=== PATIENT | male | born 1970 | race Caucasian/White ===

== ENCOUNTER 2023-08-31 06:51 | Day surgery (SDC) | payer OTHER, SELFPAY ==
--- NOTE | 2023-08-30 08:30 | COLBX_PTH ---
PATHOLOGY RESULTS PATIENT: ANGELA FRIEDMAN LOC: EN U#:[id number] AGE/SX: 52/M ROOM: RE08/31/[address]: Dr. Israel Proctor MD : 1970 BED: DIS: 08/31/2023 SPEC #: [id number] RECD: 08/31/23 13:09 STATUS: CHANTALE CHANNING #: [id number] PIPPA: 08/30/23 08:[address]: Israel Proctor DEPT: SURGICAL PATHOLOGY RECD BY: Diane Ragsdale ENTERED: 08/31/23 13:09 SP TYPE: COLON BX Tissues: Gastric mucous membrane Rectum, NOS Procedures: Surgery Specimen Level IV HEADER OPERATION: Colonoscopy with biopsy, EGD with dilation and biopsy PRE-OP DIAGNOSIS: Positive Cologuard test, GERD TISSUE SUBMITTED: A - Antrum biopsy for H. pylori and path, B - Rectal polyp biopsy MICROSCOPIC DIAGNOSIS A. Gastric antrum, biopsy: Chronic gastritis. See comment. B. Rectal polyp, biopsy: Hyperplastic polyp. AM:shereen 09/03/2023 COMMENT A. The results of immunohistochemistry for Helicobacter pylori will be reported separately ([id number]). MICROSCOPIC DESCRIPTION Slides are reviewed. GROSS DESCRIPTION A - Received in fixative is one container labeled with the patient's name and designated antrum biopsy. The specimen consists of two irregular fragments of light shepard soft tissue that in aggregate measure 0.6 x 0.5 x 0.1 cm. The specimen is totally submitted in one cassette. B - Received in fixative is one container labeled with the patient's name and designated rectal polyp biopsy. The specimen consists of one irregular fragment of light shepard soft tissue that measures 0.3 x 0.3 x 0.1 cm. The specimen is totally submitted in one cassette. / SJ:shereen 08/31/2023 TC:3 CPT: 32989 x2
--- OUTSIDE RECORDS SUMMARY | 2023-08-31 06:54 | XMS RPT_ITS | CCD ---
Author Name Unknown Address [address] [place] [address] [address] [place] [id number] Organization [facility] Care Team Providers Care Bioassayist Name Role Phone Maverick Martin Attending Unavailable Problems Problem Classification Problem Date Documented Da te Episodic/Chronic Alcohol-related disorders (1 source) Alcohol dependence with withdrawal, unspecified; Translations: [Alcohol dependence with withdrawal, unspecified] Onset: 02-28-2023 Chronic Coagulation and hemorrhagic disorders (1 source) Thrombocytopenia, unspecified; Translations: [Thrombocytopenia, unspecified] Onset: 02-28-2023 Chronic E Codes: Unspecified (1 source) Presence of alcohol in blood, level not specified; Translations: [Presence of alcohol in blood, level not specified] Onset: 02-28-2023 Episodic Malaise and fatigue (1 source) Weakness; Translations: [Weakness] Onset: 02-28-2023 Episodic Other nutritional; endocrine; and metabolic disorders (1 source) Hypocalcemia; Translations: [Hypocalcemia] Onset: 02-28-2023 Chronic Other nutritional; endocrine; and metabolic disorders (1 source) Other symptoms and signs concerning food and fluid intake; Translations: [Other symptoms and signs concerning food and fluid intake] Onset: 02-28-2023 Episodic Residual codes; unclassified (1 source) Pain, unspecified; Translations: [Pain, unspecified] Onset: 02-28-2023 Episodic Unclassified (1 source) Contact with and (suspected) exposure to COVID-19; Translations: [Contact with and (suspected) exposure to COVID-19] Onset: 02-28-2023 Results Test Name Value Interpretation Reference Range Facil ity Encounters Encounter Date Encounter Type Care Provider Facility Start: 02-27-2023 End: 02-28-2023 Emergency department patient visit Maverick Martin Facil ity:[id number] Payers Date Payer Category Payer Unknown [id number] Unknown [id number] Summary Purpose Family History No Family History Records FoundNo Family History Records Found Advance Directives No Advanced Directives Records FoundNo Advanced Directives Records Found Additional Source Comments (unrecognized sect ion and content) No Status Records FoundNo Status Records Found INFORMATION SOURCE (unrecogn ized section and content) DATE CREATED AUTHOR AUTHOR'S ORGANMARTHA ATION 02/28/2023 [facility] FOR RECORDS PERTAINING TO PATIENTS WHO ARE OR HAVE BEEN ENROLLED IN A CHEMICAL DEPENDENCY/SUBSTANCEABUSE PROGRAM, SOME INFORMATION MAY BE OMITTED. This clinical summary was aggregated from multiple sources. Caution should be exercised in using it in the provision of clinical care. This summary normalizes information from multiple sources, and as a consequence, information in this document may materially change the coding, format and clinical context of patient data. In addition, data may be omitted in some cases. CLINICAL DECISIONS SHOULD BE BASED ON THE PRIMARY CLINICAL RECORDS. [facility]. provides no warranty or guarantee of the accuracy or completeness of information in this document.
[2023-08-31 07:22] VITALS: BP 95/64; PULSE 88; RESP 16; TEMP 36.7; O2SAT 99; BMI 20.9
[2023-08-31] MEDS: Lactated Ringers 1,000 ML 15 ML IV (07:31)
--- NOTE | 2023-08-31 08:07 | HP.PCM_ITS ---
History and Physical Date of Admission: 08/31/[address] Israel Proctor MD on 08/22/23 at 1047 Intake Chief Complaint: c-scope Allergies No Known Allergies Allergy (Unverified 08/16/23 10:08) Medications acetaminophen 325 mg capsule (Tylenol) 325 mg PO Q6H PRN 04/09/18 [History Confirmed 08/16/23] acetaminophen 325 mg tablet 325 mg PO Q4-6H 08/16/23 [History Confirmed 08/16/23] diclofenac sodium 1 % topical gel topical 08/16/23 [History Confirmed 08/16/23] docusate sodium 100 mg capsule mg PO PRN 08/16/23 [History Confirmed 08/16/23] famotidine 20 mg tablet 20 mg PO DAILY 08/16/23 [History Confirmed 08/16/23] folic acid 1 mg tablet 1 mg PO DAILY 08/16/23 [History Confirmed 08/16/23] food supplemt, lactose-reduced (Ensure MAX Protein oral liquid) ml PO 08/16/23 [History Confirmed 08/16/23] gabapentin 300 mg capsule 300 mg PO TID 08/16/23 [History Confirmed 08/16/23] hydroxyzine pamoate 50 mg capsule 50 mg PO BID 08/16/23 [History Confirmed 08/16/23] mirtazapine 30 mg tablet 30 mg PO QHS 08/16/23 [History Confirmed 08/16/23] naltrexone 50 mg tablet 100 mg PO DAILY 08/16/23 [History Confirmed 08/16/23] thiamine HCl (vitamin B1) 100 mg tablet 100 mg PO DAILY 08/16/23 [History Confirmed 08/16/23] Assessment and Plan Assessment and Plan (1) Positive colorectal cancer screening using Cologuard test: Status: Acute Plan: Patient has positive Cologuard and requires colonoscopy. I explained endoscopy in detail to the patient. I explained the risks including but not limited to stroke or heart attack with anesthesia, perforation of the GI tract, bleeding, infection. I explained that any of these could necessitate further emergency surgery. The patient understands and all questions were answered sufficiently. The patient wishes to proceed with procedure. (2) GERD (gastroesophageal reflux disease): Status: Acute Qualifiers: Esophagitis presence: esophagitis presence not specified Qualified Code(s): K21.9 - Gastro-esophageal reflux disease without esophagitis Plan: Patient also has longstanding GERD and requires EGD for evaluation. Israel Proctor MD Pager: [facility] [address] [place] [address] [address] [place] [address] Office: Orders: Orders Colonoscopy 08/31/23 08/22/23 1047 <Electronically signed by Israel Proctor MD> Date Israel Proctor MD cc: ~* Signed Intake Vital Signs 08/16/2409:07 Height 6 ft 3 in Weight: 173 lb BMI 21.6 BP 149/91 H Blood Pressure Location Rt brachial Position Sitting Respiration 16 Intake Visit Reasons: COLONOSCOPY Chief Complaint: c-scope Commissioner Conservation Of Resources Required: No Is patient in pain?: No Allergies No Known Allergies Allergy (Unverified 08/16/23 10:08) Medications acetaminophen 325 mg capsule (Tylenol) 325 mg PO Q6H PRN 04/09/18 [History Confirmed 08/16/23] acetaminophen 325 mg tablet 325 mg PO Q4-6H 08/16/23 [History Confirmed 08/16/23] diclofenac sodium 1 % topical gel topical 08/16/23 [History Confirmed 08/16/23] docusate sodium 100 mg capsule mg PO PRN 08/16/23 [History Confirmed 08/16/23] famotidine 20 mg tablet 20 mg PO DAILY 08/16/23 [History Confirmed 08/16/23] folic acid 1 mg tablet 1 mg PO DAILY 08/16/23 [History Confirmed 08/16/23] food supplemt, lactose-reduced (Ensure MAX Protein oral liquid) ml PO 08/16/23 [History Confirmed 08/16/23] gabapentin 300 mg capsule 300 mg PO TID 08/16/23 [History Confirmed 08/16/23] hydroxyzine pamoate 50 mg capsule 50 mg PO BID 08/16/23 [History Confirmed 08/16/23] mirtazapine 30 mg tablet 30 mg PO QHS 08/16/23 [History Confirmed 08/16/23] naltrexone 50 mg tablet 100 mg PO DAILY 08/16/23 [History Confirmed 08/16/23] thiamine HCl (vitamin B1) 100 mg tablet 100 mg PO DAILY 08/16/23 [History Confirmed 08/16/23] [facility] Medical History Alcohol abuse Arthritis Depression Hemorrhoids HTN (hypertension) Neuropathic pain Positive colorectal cancer screening using Cologuard test Thrombocytopenia Tobacco use Surgical History (Updated 08/16/23 @ 10:07 by Jane Briones) History of vocal cord polypectomy Social History (Updated 08/16/23 @ 10:07 by Jane Briones) Smoking Status: Current every day smoker alcohol intake: current alcohol intake frequency: 0-2 drinks per day Alcohol type: beer details: recovering alcoholic HPI HPI HPI: Patient is a 52-year-old male here for positive Cologuard. He denies abdominal pain or blood in the stool. He has no family history of colon cancer. ROS General General: No weight change, appetite, fatigue, colon cancer, breast cancer or weakness HEENT HEENT: No difficulty swallowing, eye injury, eye surgery, swollen glands or hoarseness Endo Endocrine: No thyroid disease, diabetes mellitus, thyroid cancer, Hair loss, heat intolerance or cold intolerance Skin Skin: No rash or changing moles Breast Breast: No left breast lump, right breast lump, nipple discharge, breast pain, abnormal mammogram, abnormal US or breast enlargement Musc Musculoskeletal: Yes arthritis; No back problems, rheumatoid arthritis, gout or joint pain Cardio Cardiovascular: No murmur, pacemaker, heart disease, atrial fibrillation, high blood pressure, heart attack, heart stent, palpitations, shortness of breat with exertion or chest pain Psych Psychiatric: Yes depression and anxiety; No hearing voices Resp Respiratory: No shortness of breath, No sleep apnea, No cough, No COPD, No asthma, No emphysema and No wheezing Gastro Gastrointestinal: No abdominal pain, No nausea or vomiting, No diarrhea, No constipation, No blood in stool, No acid reflux, Yes hemorrhoids, No ulcers, No gallbladder problem and No black,tarry stools Mauricio Hematologic: No blood thinners, No blood disorders, No bleeding, No anemia and No blood clots Neuro Neurologic: No system reviewed and no additional complaints, except as documented, No as per HPI, No abnormal gait, No abnormal hearing, No abnormal movements, No abnormal speech, No behavioral changes, No burning sensations, No confusion, No convulsions, No disequilibrium, No dizziness, No localized weakness, No frequent falls, No headache(s), No lack of coordination, No loss of vision, No memory loss, No numbness, No other visual disturbances, No radicular pain, No restless legs, No sensory deficit, No syncope, No tingling, No tremor(s), No weakness and No other Exam Const General: cooperative Orientation: alert and oriented x3 HENMT Head: normal to inspection Neck Neck: normal visual inspection and full ROM Chest Chest palpation & inspection: normal inspection of the chest Resp Effort & Inspection: normal respiratory effort Auscultation: clear to auscultation bilaterally Cardio Rate: regular rate Rhythm: regular rhythm GI Inspection: non-distended Palpation: soft and nontender Skin General: no rashes or lesions noted Neuro General: patient alert and patient oriented x3 Extrem General: full ROM Psych Appearance: grossly normal Mental Status: mental status grossly normal Assessment and Plan Assessment and Plan (1) Positive colorectal cancer screening using Cologuard test: Status: Acute Orders: Orders Colonoscopy Today Plan Patient had positive Cologuard and requires colonoscopy. I explained endoscopy in detail to the patient. I explained the risks including but not limited to stroke or heart attack with anesthesia, perforation of the GI tract, bleeding, infection. I explained that any of these could necessitate further emergency surgery. The patient understands and all questions were answered sufficiently. The patient wishes to proceed with procedure. Israel Proctor MD Pager: [facility] [address] [place] [address], [address] [place] [address] Office: Coding Level of Care Code Off vis,new,level 3 Diagnoses Positive colorectal cancer screening using Cologuard test R19.5 I have examined the patient and the H&P has been reviewed. There are no clinical changes since date of exam.
--- NOTE | 2023-08-31 08:30 | IMM_PTH ---
PATHOLOGY RESULTS PATIENT: NAGELA FRIEDMAN LOC: EN U#:[id number] AGE/SX: 52/M ROOM: RE08/31/[address]: Dr. Israel Proctor MD : 1970 BED: DIS: 08/31/2023 SPEC #: [id number] RECD: 08/31/23 14:54 STATUS: CHANTALE CHANNING #: [id number] PIPPA: 08/31/23 08:[address]: Israel Proctor DEPT: IMMUNOHISTOCHEMISTRY RECD BY: June Chapin ENTERED: 08/31/23 14:54 SP TYPE: IMMUNO Tissues: Stomach, NOS Procedures: H Pylori (initial) PHYSICIAN & INSTITUTION [place] [id number] SPECIMEN INFORMATION: Tissue Source: A - Antrum Clinical Info: Positive Cologuard test, GERD Specimen Number: [id number] CPT code: 82630 METHODOLOGY: Deparaffinized sections of prefer/formalin-fixed tissue or PAP/DQ stained slides are incubated with monoclonal/polyclonal antibodies/oligonucleotide probes. Localization is made via biotin free immunoperoxidase method. Appropriate controls are performed and reacted as expected. Results on target cell population are indicated in the following table: RESULTS: ANTIBODY / CLONE RESULT Block A H Pylori (polyclonal) negative These tests were developed and their performance characteristics determined by [facility]. They may not have been cleared or approved by the U.S. Food and Drug Administration. The FDA has determined that such clearance or approval is not necessary. The above immunohistochemical/dualISH markers are ordered and reviewed by the Pathologist. INTERPRETATION: A. Antrum, biopsy: Negative for Helicobacter pylori organisms. AM:shereen 09/03/2023
[2023-08-31 08:54] VITALS: BP 83/52; BP 95/64; PULSE 74; RESP 18; TEMP 36.2; O2SAT 94
[2023-08-31 08:55] VITALS: BP 71/48; BP 95/64; PULSE 74; RESP 18; O2SAT 93
--- NOTE | 2023-08-31 08:57 | OP.COLON_ITS ---
Patient Name: García Randle Procedure Date: 08/31/2023 8:33 AM Date of : 1970 Age: 52 Procedure: Colonoscopy Indications: Positive Cologuard test Providers: Israel Proctor MD Referring MD: Lady Chamberlain Medicines: Monitored Anesthesia Care Patient Profile: Last Colonoscopy: none. The patient's first colonoscopy is today. Complications: No immediate complications. Procedure: Pre-Anesthesia Assessment: - Prior to the procedure, a History and Physical was performed, and patient medications and allergies were reviewed. The patient's tolerance of previous anesthesia was also reviewed. The risks and benefits of the procedure and the sedation options and risks were discussed with the patient. All questions were answered, and informed consent was obtained. Prior Anticoagulants: The patient has taken no anticoagulant or antiplatelet agents. After reviewing the risks and benefits, the patient was deemed in satisfactory condition to undergo the procedure. After I obtained informed consent, the scope was passed under direct vision. Throughout the procedure, the patient's blood pressure, pulse, and oxygen saturations were monitored continuously. The Colonoscope was introduced through the anus and advanced to the cecum, identified by appendiceal orifice and ileocecal valve. The colonoscopy was performed without difficulty. The patient tolerated the procedure well. The quality of the bowel preparation was good. The ileocecal valve, appendiceal orifice, and rectum were photographed. Scope In: 8:34:59 AM Scope Withdrawal Time 0 hours 4 minutes 27 seconds Scope Out: 8:47:00 AM Total Procedure Duration Time 0 hours 12 minutes 1 second Findings: A small polyp was found in the rectum. The polyp was hyperplastic. The polyp was removed with a cold biopsy forceps. Resection and retrieval were complete. The entire examined colon appeared normal on direct and retroflexion views. Impression: - One small polyp in the rectum, removed with a cold biopsy forceps. Resected and retrieved. - The entire examined colon is normal on direct and retroflexion views. Recommendation: - Discharge patient to home. - Resume previous diet. - Continue present medications. - Await pathology results. - Repeat colonoscopy date to be determined after pending pathology results are reviewed for surveillance based on pathology results. Procedure Code(s): --- Professional --- 45035, Colonoscopy, flexible; with biopsy, single or multiple Diagnosis Code(s): --- Professional --- D12.8, Benign neoplasm of rectum R19.5, Other fecal abnormalities CPT copyright 2021 [employer]. All rights reserved. The codes documented in this report are preliminary and upon television maintenance man review may be revised to meet current compliance requirements. Isreal Proctor MD 08/31/2023 8:57:31 AM This report has been signed electronically. Number of Addenda: 0 Note Initiated On: 08/31/2023 8:33 AM
--- NOTE | 2023-08-31 08:58 | OP.CCLET_ITS ---
08/31/2023 Gelaciopernell Chamberlain Re : Colonoscopy procedure for García Chamberlain This procedure was performed on Thursday, August 31, 2023. My impressions and recommendations are as follows: Impressions : - One small polyp in the rectum, removed with a cold biopsy forceps. Resected and retrieved. - The entire examined colon is normal on direct and retroflexion views. Recommendations : - Discharge patient to home. - Resume previous diet. - Continue present medications. - Await pathology results. - Repeat colonoscopy date to be determined after pending pathology results are reviewed for surveillance based on pathology results. My findings are described in the full procedure note, which is enclosed. If I can be of further assistance, please feel free to contact me at Doctor phone number(s): , Work: . Sincerely, Israel Proctor MD 08/31/2023 8:57:31 AM This report has been signed electronically.
[2023-08-31 09:00] VITALS: BP 75/54; BP 95/64; PULSE 89; RESP 18; O2SAT 97
--- NOTE | 2023-08-31 09:00 | OP.EGD_ITS ---
Patient Name: García Randle Procedure Date: 08/31/2023 8:13 AM Date of : 1970 Age: 52 Procedure: Upper GI endoscopy Indications: Esophageal reflux Providers: Israel Proctor MD Referring MD: Lady Chamberlain Medicines: Propofol per Anesthesia Patient Profile: This is a 52 year old male. Refer to note in patient chart for documentation of history and physical. Complications: No immediate complications. Estimated blood loss: Minimal. Procedure: Pre-Anesthesia Assessment: - Prior to the procedure, a History and Physical was performed, and patient medications and allergies were reviewed. The patient's tolerance of previous anesthesia was also reviewed. The risks and benefits of the procedure and the sedation options and risks were discussed with the patient. All questions were answered, and informed consent was obtained. Prior Anticoagulants: The patient has taken no anticoagulant or antiplatelet agents. After reviewing the risks and benefits, the patient was deemed in satisfactory condition to undergo the procedure. After obtaining informed consent, the endoscope was passed under direct vision. Throughout the procedure, the patient's blood pressure, pulse, and oxygen saturations were monitored continuously. The Endoscope was introduced through the mouth, and advanced to the third part of duodenum. The upper GI endoscopy was accomplished without difficulty. The patient tolerated the procedure well. Scope In: 8:20:49 AM Scope Out: 8:32:09 AM Total Procedure Duration Time 0 hours 11 minutes 20 seconds Findings: A medium-sized hiatal hernia was present. One benign-appearing, intrinsic mild stenosis was found at the gastroesophageal junction. This stenosis measured less than one cm (in length). The stenosis was traversed. A TTS dilator was passed through the scope. Dilation with a 12-13.5-15 mm balloon and a 15-16.5-18 mm balloon dilator was performed to 18 mm. The dilation site was examined following endoscope reinsertion and showed mild mucosal disruption. Estimated blood loss was minimal. Mild inflammation with hemorrhage characterized by adherent blood was found in the gastric antrum. Biopsies were taken with a cold forceps for histology. The examined duodenum was normal. Impression: - Medium-sized hiatal hernia. - Benign-appearing esophageal stenosis. Dilated. - Gastritis with hemorrhage. Biopsied. - Normal examined duodenum. Recommendation: - Discharge patient to home. - Resume previous diet. - Continue present medications. - Use Prilosec (omeprazole) 20 mg PO daily for 2 months. Procedure Code(s): --- Professional --- 22349, Esophagogastroduodenoscopy, flexible, transoral; with transendoscopic balloon dilation of esophagus (less than 30 mm diameter) Diagnosis Code(s): --- Professional --- K44.9, Diaphragmatic hernia without obstruction or gangrene K22.2, Esophageal obstruction K29.71, Gastritis, unspecified, with bleeding K21.9, Gastro-esophageal reflux disease without esophagitis CPT copyright 2021 [employer]. All rights reserved. The codes documented in this report are preliminary and upon director health review may be revised to meet current compliance requirements. Israel Proctor MD 08/31/2023 9:00:08 AM This report has been signed electronically. Number of Addenda: 0 Note Initiated On: 08/31/2023 8:13 AM
--- NOTE | 2023-08-31 09:00 | OP.CCLET_ITS ---
08/31/2023 Bulmaro Re : Upper GI endoscopy procedure for García Randle Dear Bulmaro This procedure was performed on Thursday, August 31, 2023. My impressions and recommendations are as follows: Impressions : - Medium-sized hiatal hernia. - Benign-appearing esophageal stenosis. Dilated. - Gastritis with hemorrhage. Biopsied. - Normal examined duodenum. Recommendations : - Discharge patient to home. - Resume previous diet. - Continue present medications. - Use Prilosec (omeprazole) 20 mg PO daily for 2 months. My findings are described in the full procedure note, which is enclosed. If I can be of further assistance, please feel free to contact me at Doctor phone number(s): , Work: . Sincerely, Israel Proctor MD 08/31/2023 9:00:08 AM This report has been signed electronically.
[2023-08-31 09:06] VITALS: BP 92/71; BP 95/64; PULSE 94; RESP 18; TEMP 36.6; O2SAT 96
[2023-08-31 09:26] VITALS: BP 95/64
== END 2023-08-31 09:36 | disposition home or self-care (01) ==
LOC: EN 06:52 → AC 06:53
PROVIDERS: Visit Provider Surgery
PROC: 0DJD8ZZ Inspection of Lower Intestinal Tract, Via Natural or Artificial Opening Endoscopic (ICD-10-PCS; CPT 45378; principal; 2023-08-31 08:25)
DX: K29.51 Unspecified chronic gastritis with bleeding (principal); K44.9 Diaphragmatic hernia without obstruction or gangrene; K22.2 Esophageal obstruction; F17.200 Nicotine dependence, unspecified, uncomplicated; K21.9 Gastro-esophageal reflux disease without esophagitis; K62.1 Rectal polyp; I10 Essential (primary) hypertension; Z79.899 Other long term (current) drug therapy
CPT/HCPCS: 43249; 43239; 45380; 88305; 88342; J7120; J2405

== ENCOUNTER → 2024-05-06 | Outpatient (CLI) | payer OTHER, SELFPAY ==
--- NOTE | 2024-05-06 09:40 | ECHOTEE_ITS ---
Reason For Study: PFO Medication ADE probe 6VT-D (SN [id number]) passed without difficulty. No complications were noted. Performed a rapid injection of agitated mix of 9 cc saline and 1cc air to assess for atrial septal defect. Fentanyl 50 mcg given slow IVP. Versed 4 mg given slow IVP. Cetacaine Topical [place] given X3 orally. Left Ventricle Normal LV size. Left ventricular systolic function is normal. The left ventricular ejection fraction is 65 %. No regional wall motion abnormalities noted. Right Ventricle Normal RV size. Normal systolic function. Atria Patent foramen ovale. Normal left atrium. No thrombus is detected in the left atrial appendage. Normal right atrium. Mitral Valve Normal mitral valve. Tricuspid Valve Normal tricuspid valve. Aortic Valve Normal aortic valve. Trisinus/trileaflet aortic valve. Pulmonic Valve Normal pulmonic valve. Vessels Normal aortic root. Normal arch. The pulmonary artery is normal size. Pericardium No pericardial effusion. ECHO/Echo Transesophageal (ADE) Interpretation Summary Normal LV size. Left ventricular systolic function is normal. The left ventricular ejection fraction is 65 %. Patent foramen ovale. Ordering Physician: DEWAYNE GOLDBERG Referring Physician: DEWAYNE GOLDBERG Performed By: Shanelle You RDCS
== END | disposition home or self-care (01) ==
LOC: CVS 09:39
DX: Q21.12 Patent foramen ovale (principal)
CPT/HCPCS: 93312; 93320; 93325; J7040; A4216

== ENCOUNTER → 2024-05-22 | Outpatient (CLI) | payer OTHER, SELFPAY ==
--- NOTE | 2024-05-22 10:32 | ECHOD_ITS ---
Reason For Study: Patent Foramen Ovale Procedure This was a 2D Doppler, Color Flow transthoracic echocardiogram. Exam performed in department. Left Ventricle Normal LV size. Left ventricular systolic function is normal. The left ventricular ejection fraction is 60 %. No regional wall motion abnormalities noted. Right Ventricle Normal RV size. Normal systolic function. Atria Normal left atrium. Normal right atrium. Mitral Valve Normal mitral valve. Tricuspid Valve Normal tricuspid valve. Aortic Valve Trisinus/trileaflet aortic valve. Pulmonic Valve Normal pulmonic valve. Great Vessels Normal aortic root. The pulmonary artery is normal size. Normal inferior vena cava. Pericardium/Pleural No pericardial effusion. MMode/2D Measurements & Calculations LVIDd: 4.8 cm IVSd: 0.96 cm LVOT diam: 2.1 cm LVIDs: 3.5 cm LVPWd: 0.89 cm LVOT area: 3.5 cm2 RVDd: 3.7 cm FS: 28.1 % Ao root diam: 3.3 cm asc Aorta Diam: 3.2 cm LAV(MOD-sp4): 45.2 ml LA dimension: 3.7 cm LVAd ap4: 30.5 cm2 SV(MOD-sp4): 55.2 ml SV(sp4-el): 59.2 ml LVLd ap4: 7.6 cm EDV(MOD-sp4): 100.1 ml EDV(sp4-el): 104.4 ml LVAs ap4: 19.1 cm2 LVLs ap4: 6.9 cm ESV(MOD-sp4): 44.9 ml ESV(sp4-el): 45.2 ml EF(MOD-sp4): 55.2 % EF(sp4-el): 56.7 % TAPSE: 1.9 cm LA A4 area: 17.3 cm2 RA A4 area: 14.9 cm2 Time Measurements MV dec time: 0.19 sec Doppler Measurements & Calculations MV E max marco: 77.2 cm/sec Lat Peak E' Marco: 16.0 cm/sec Med Peak E' Marco: 12.3 cm/sec MV A max marco: 61.3 cm/sec E/E' lat: 4.8 E/E' med: 6.3 MV E/A: 1.3 MV V2 max: 81.9 cm/sec MV P1/2t max marco: 79.1 cm/sec Ao V2 max: 124.0 cm/sec MV max P.7 mmHg MV P1/2t: 68.5 msec Ao max P.2 mmHg MV V2 mean: 46.5 cm/sec MV dec slope: 338.1 cm/sec2 Ao V2 mean: 85.2 cm/sec MV mean P.0 mmHg Ao mean P.3 mmHg MV V2 VTI: 28.9 cm MVA(P1/2t): 3.2 cm2 Ao V2 VTI: 28.5 cm MVA(VTI): 2.6 cm2 AV (velocity ratio): 0.77 KVNG(I,D): 2.7 cm2 KVNG(V,D): 2.7 cm2 LV V1 max: 96.9 cm/sec SV(LVOT): 76.2 ml PA V2 max: 93.4 cm/sec LV V1 max P.8 mmHg PA max PG (full): 1.5 mmHg LV V1 mean P.9 mmHg LV V1 mean: 63.4 cm/sec LV V1 VTI: 21.9 cm ECHO/Echo Complete Interpretation Summary Normal LV size. Left ventricular systolic function is normal. The left ventricular ejection fraction is 60 %. Structurally normal valves. Ordering Physician: Joel Prasad Referring Physician: Joel Prasad Performed By: Keven Palma and Student
== END | disposition home or self-care (01) ==
LOC: CVS 10:31
PROVIDERS: Referring Provider Chiropractor; Visit Provider Chiropractor
DX: Q21.12 Patent foramen ovale (principal)
CPT/HCPCS: 93306

== ENCOUNTER 2024-08-22 13:40 | Outpatient (CLI) | payer OTHER, SELFPAY ==
--- NOTE | 2024-08-22 13:41 | VDLE_ITS ---
Reason For Study: PFO, CVA RIGHT LEFT GSV is normal. GSV is normal. CFV is compressible, spontaneous, phasic, CFV is compressible, spontaneous, phasic, competent and demonstrates normal competent, and demonstrates normal augmentation. augmentation. FV is compressible, spontaneous, phasic, FV is compressible, spontaneous, phasic, competent and demonstrates normal competent and demonstrates normal augmentation. augmentation. POP V is compressible, spontaneous, phasic, POP V is compressible, spontaneous, phasic, competent and demonstrates normal competent and demonstrates normal augmentation. augmentation. T/P Trunk is compressible. T/P Trunk is compressible. PTV is compressible. PTV is compressible. RT PerV is compressible. LT PerV is compressible. Procedure This is a venous duplex using B-mode, color flow and spectral Doppler. Exam performed in department. A preliminary report was called and/or faxed to [facility] [employer]. VL/Venous Duplex US - Luis A Extrem Interpretation Summary Deep veins of the bilateral lower extremities are patent and compressible segme ntally. There is no evidence of bilateral lower extremity deep vein thrombosis. The bilateral great saphenous veins appear patent and compressible segmentally. Ordering Physician: Aftab Cabrales Referring Physician: [facility] Performed By: Isabella Wright RVT
== END 2024-08-22 23:59 | disposition home or self-care (01) ==
LOC: CVS 13:41
PROVIDERS: Referring Provider Internal Medicine Cardiovascular Disease; Visit Provider Internal Medicine Cardiovascular Disease
DX: Q21.12 Patent foramen ovale (principal); I70.92 Chronic total occlusion of artery of the extremities; Z86.73 Personal history of transient ischemic attack (TIA), and cerebral infarction without residual deficits
CPT/HCPCS: 93970

== ENCOUNTER 2024-09-24 08:38 | Outpatient (CLI) | payer OTHER, SELFPAY ==
--- NOTE | 2024-09-24 08:40 | AAVD_ITS ---
Reason For Study Reason For Study: Family HX AAA Aorta Measurements Aorta Doppler Measurements Proximal aorta measures1.80 x 1.94cm. in cross-sectional Peak systolic flow velocities within the proximal aorta axis. measure 94.1 cm/sec. Proximal aorta measures1.95cm. in longitudinal axis. Peak systolic flow velocities within the mid aorta measure Mid aorta measures2.01 x 1.82cm. in cross-sectional axis. 90.4 cm/sec. Mid aorta measures1.87cm. in longitudinal axis. Peak systolic flow velocities within the distal aorta Distal aorta measures1.64 x 1.72cm. in cross-sectional axis.measure 88.6 cm/sec. Distal aorta measures1.69cm. in longitudinal axis. Heterogenous irregular plaque noted at prox and mid AO. Left Iliac Artery Left iliac artery measures 1.14 x 1.09 cm. in the cross-sectional axis. Left iliac artery measures 1.16 cm. in the longitudinal axis. Peak systolic velocity in the left iliac artery measures 108.6 cm/sec. Right Iliac Artery Right iliac artery measures 0.85 x 0.86 cm. in the cross-sectional axis. Right iliac artery measures 0.82 cm. in the longitudinal axis. Peak systolic velocity in the right iliac artery measures 83.2 cm/sec. Procedure Aorta IVC Iliac vasculature or bypass grafts [id number]. The exam was diagnostic. Exam performed in department. VL/Abd Aortic/IVC Duplex scan Interpretation Summary Aorta patent, normal caliber Bilateral iliac arteries patent, normal caliber Ordering Physician: Aftab Cabrales Referring Physician: STEPHEN Performed By: Frederick Guillory RVT
== END 2024-09-24 23:59 | disposition home or self-care (01) ==
LOC: CVS 08:39
PROVIDERS: Referring Provider Internal Medicine Cardiovascular Disease; Visit Provider Internal Medicine Cardiovascular Disease
DX: R09.89 Other specified symptoms and signs involving the circulatory and respiratory systems (principal); Q21.12 Patent foramen ovale; I10 Essential (primary) hypertension; F17.200 Nicotine dependence, unspecified, uncomplicated; Z86.73 Personal history of transient ischemic attack (TIA), and cerebral infarction without residual deficits; Z82.49 Family history of ischemic heart disease and other diseases of the circulatory system
CPT/HCPCS: 93978

== ENCOUNTER → 2025-03-06 | Outpatient (CLI) | payer OTHER, SELFPAY ==
--- NOTE | 2025-03-06 16:59 | CT_ITS ---
PROCEDURE: LOW DOSE CT LUNG SCREENING 03/06/2025 REASON FOR EXAM: NICOTINE DEPENDENCE, CIGARETTES, UNCOMPLICATED Current smoker. Patient has smoked 1 pack per day for 35 years. TECHNIQUE: LOW DOSE CT LUNG SCREENING Coronal and Sagittal reconstruction series were provided. One or more dose reduction techniques were used (e.g., Automated exposure control, adjustment of the mA and/or kV according to patient size, use of iterative reconstruction technique). REFERENCE LINK: [employer] Lung-RADS RADIATION DOSE SUMMARY: CTDlvol: 2.38 mGy DLP: 83.95 mGycm COMPARISON: None FINDINGS: PULMONARY NODULES: (Only nodules >3mm are reported) Nodules described below are on series 1 unless otherwise specified. Pulmonary Nodules: No suspicious nodules are seen. Hardware:None Lymph Nodes:No significant lymph nodes are present. Heart and Vasculature:The heart is nonenlargedAtherosclerotic calcifications of the thoracic aorta. Thoracic aorta and pulmonary arteries have normal contours; noncontrast technique limits evaluation. Coronary Artery Calcifications: Present Lungs and Airways: Mild emphysematous changes are present. Pleura:No pleural effusion. Upper Abdomen:Unremarkable Bones:Degenerative changes of the thoracic spine. CT/Low Dose CT Lung Screening IMPRESSION: Mild degree of emphysematous changes. Coronary artery calcification (CAC) is is present Lung-RADS Category: 2 BENIGN (BASED ON IMAGING FEATURES OR INDOLENT BEHAVIOR). RECOMMEND 12-MONTH SCREENING LDCT. Other Significant Findings: Reading Location: [place] [id number]
--- OUTSIDE RECORDS SUMMARY | 2025-03-06 17:10 | XMS RPT_ITS | CCD ---
Author Organization [facility] Care Team Providers Care Welding Specialist Name Role Phone Maverick Martin Attending Unavailable Dr. Israel Proctor Attending Provider [phone] Dr. Israel Proctor Other Provider [phone] BURCIAGAVISHNU VARMA Primary Care Provider VISHNU BURCIAGA Referring Provider FLAVIA NOGUEIRA Referring Unavailable FLAVIA NOGUEIRA Attending Unavailable BURCIAGA, BABBALJEET Primary Care Unavailable BURCIAGA, BABBALJEET Primary Care Unavailable PHUONG SILVA Referring Unavailab FLAVIA Quinteros Consulting Unavailable GIAN FONTANEZ Attending Unavail able EZE ANTHONY Admitting Unavailable BURCIAGA, BABBALJEET Primary Care Unavailable Generic Provider , No Assigned Pcp Primary Car e Provider [place] Referring Provider Unavailable Dr. Aftab Cabrales MD Attending Provider [place] [facility] Aftab Schulte MD Referring Provider Dr. Erick Logan MD Attending Provider URBANO CARPENTER Attending Unavailable GENERIC PROVIDER, NO ASSIGNED PCP Primary Care Unavailable URBANO CARPENTER Attending Unavailable GENERIC PROVIDER, NO ASSIGNED PCP Primary Care Unavailable TAMICA BUSCH Attending Unavailable URBANO CARPENTER Referring Unavailable GENERIC PROVIDER, NO ASSIGNED PCP Primary Care Unavailable TAMICA BUSCH Referring Unavailable GENERIC PROVIDER, NO ASSIGNED PCP Primary Care Unavailable TAMICA BUSCH Referring Unavailable GENERIC PROVIDER, NO ASSIGNED PCP Primary Care Unavailable Aftab Cabrales Attending Unavailable Erick Logan Attending Unavailable Aftab Cabrales [facility] Erick Logan [facility] Unavailable Samra, Aftab Referring Unavailable Samra, Aftab Attending [facility] Unavailable Samra, [place] Attending [facility] Ref[facility] Unavailable Samra, Aftab Attending Unavailable Samra, Aftab Referring [facility] Unavailable Samra, Aftab Attending Unavailable Samra, Aftab Referring Unavailable CAROLINA SINGH Referring Unavailable CAROLINA SINGH [facility]ending [facility] [place] [facility] [place] [facility] Unavailable CAROLINA SINGH Attending Unavailable CAROLINA SINGH Primary Care Unavailable CAROLINA SINGH Referring Unavailable Medications Current Medications Medication Drug Class(es) Dates Sig (Normalized) Sig (Original) acetaminophen 325 mg oral tablet (7 sources) Start: 07-26-2023 take 2 tablets by mouth every six hours as needed acetaminophen (Tylenol) 325 mg tablet Take 2 tablets (650 mg) by mouth every 6 hours if needed. 07/26/2023 Active Start: 04-09-2018 take 1 capsule by mo [facility] every six hours as needed for pain Acetaminophen (Tylenol) 325 mg capsule Active 325 mg PO EVERY 6 HOURS as needed for pain April 09, 2018 12:00am amLODIPine 5 mg oral tablet (6 sources) Dihydropyridine Calcium Channel Anish Start: 02-15-2024 take 1 tablet by mouth once daily amLODIPine (Norvasc) 5 mg tablet Take 1 tablet (5 mg) by mouth once daily. 02/15/2024 Active aspirin 81 mg delayed release oral tablet (6 sources) Platelet Aggregation Inhibitor, Nonsteroidal Anti-inflammatory Drug Start: 05-06-2024 Aspirin (Adult Low Dose Aspirin) 81 mg tablet,delayed release (DR/EC) Active 81 mg PO DAILY May 06, 2024 12:00am gabapentin 300 mg oral capsule (7 sources) Anti-epileptic Agent Start: 08-16-2023 take 1 capsule by mouth three times daily gabapentin (Neurontin) 300 mg capsule Take 1 capsule (300 mg) by mouth 3 times a day. 08/16/2023 Active hydrOXYzine pamoate 50 mg oral capsule (8 sources) Antihistamine Start: 08-16-2023 End: 01-16-2025 take 1 capsule by mouth three times daily as needed hydrOXYzine pamoate (Vistaril) 50 mg capsule Take 1 capsule (50 mg) by mouth 3 times a day as needed. 08/16/2023 01/16/2025 Active Start: 08-16-2023 End: 07-08-2024 take 1 capsule by mouth twice daily Hydroxyzine Pamoate 50 mg capsule Discontinued 50 mg PO TWICE A DAY August 16, 2023 1:00am July 08, 2024 11:20am melatonin 5 mg oral capsule (8 sources) Start: 07-08-2024 take 2 capsules by mouth at bedtime as needed Melatonin 5 mg capsule Active 10 mg PO AT BEDTIME as needed July 08, 2024 11:19am Start: 01-16-2024 take 2 tablets by mo uth once daily melatonin 3 mg tablet Take 2 tablets (6 mg) by mouth once daily. 01/16/2024 Active Start: 08-29-2023 End: 07-08-2024 take 1 capsule by mouth at bedtime Melatonin 5 mg capsule Discontinued 5 mg PO AT BEDTIME August 29, 2023 1:00am July 08, 2024 11:20am meloxicam 15 mg oral tablet (3 sources) Nonsteroidal Anti-inflammatory Drug Start: 08-29-2023 End: 07-08-2024 take 1 tablet by mouth once daily as needed Meloxicam 15 mg tablet Active 15 mg PO DAILY as needed July 08, 2024 11:19am mirtazapine 30 mg oral tablet (7 sources) Start: 06-22-2023 take 1 tablet by mouth once daily mirtazapine (Remeron) 30 mg tablet Take 1 tablet (30 mg) by mouth once daily. 06/22/2023 Active Multivitamin preparation (1 source) Start: 08-29-2023 take 1 tablet by mouth once daily Multivitamin Active 1 TABLET PO DAILY August 29, 2023 12:00am naltrexone hydrochloride 50 mg oral tablet (7 sources) Opioid Antagonist Start: 08-16-2023 End: 08-06-2024 take 1 tablet by mouth once daily as needed naltrexone (Depade) 50 mg tablet Take 1 tablet (50 mg) by mouth once daily. Prn 08/16/2023 Active Start: 08-16-2023 take 100 mg by mouth once johann y Naltrexone Active 100 MG PO DAILY August 16, 2023 12:00am Completed/Discontinued Medications Medication Drug Class(es) Dates Sig (Normalized) Sig (Original) atorvastatin (7 sources) HMG-CoA Reductase Inhibitor Start: 05-06-2024 End: 07-08-2024 atorvastatin Discontinued .Route May 06, 2024 12:00am July 08, 2024 11:20am Start: 02-15-2024 take 1 tablet by mary lou th once daily atorvastatin (Lipitor) 40 mg tablet Take 1 tablet (40 mg) by mouth once daily. 02/15/2024 Active diclofenac sodium 0.01 mg/mg topical gel (2 sources) Nonsteroidal Anti-inflammatory Drug Start: 08-16-2023 End: 07-08-2024 Diclofenac Sodium 1 % gel Discontinued 1 NMA TOPICAL NEEDED as needed for pain August 16, 2023 1:00am July 08, 2024 11:20am Start: 08-16-2023 Diclofenac Sod ium Active 1 EACH TOPICAL NEEDED August 16, 2023 12:00am docusate sodium 100 mg oral capsule (2 sources) Start: 08-16-2023 End: 05-06-2024 Docusate Sodium 100 mg capsule Discontinued 100 mg PO NEEDED as needed for STOOL SOFTENER August 16, 2023 1:00am May 06, 2024 11:51am famotidine 20 mg oral tablet (3 sources) Histamine-2 Receptor Antagonist Start: 07-08-2024 End: 08-06-2024 take 1 tablet by mouth twice daily Famotidine 20 mg tablet Discontinued 20 mg PO TWICE A DAY July 08, 2024 1:00am August 06, 2024 2:21pm Start: 08-16-2023 End: 08-31-2023 take 1 tablet by mouth once daily Famotidine 20 mg tablet Discontinued 20 mg PO DAILY August 16, 2023 1:00am August 31, 2023 10:00am finasteride 5 mg oral tablet (2 sources) 5-alpha Reductase Inhibitor Start: 08-29-2023 End: 05-06-2024 take 1 tablet by mouth at bedtime Finasteride 5 mg tablet Discontinued 5 mg PO AT BEDTIME August 29, 2023 1:00am May 06, 2024 11:51am folic acid 1 mg oral tablet (3 sources) Start: 07-08-2024 End: 08-06-2024 take 1 tablet by mouth once daily Folic Acid 1 mg tablet Discontinued 1 mg PO daily July 08, 2024 1:00am August 06, 2024 2:22pm Start: 08-16-2023 End: 05-06-2024 take 1 tablet by mouth once daily Folic Acid 1 mg tablet Discontinued 1 mg PO DAILY August 16, 2023 1:00am May 06, 2024 11:51am Food Supplemt, Lactose-Reduc ed (Ensure Max Protein) liquid (2 sources) Start: 08-16-2023 End: 05-06-2024 Food Supplemt, Lactose-Reduc ed (Ensure Max Protein) liquid Discontinued 30 mL PO NEEDED August 16, 2023 1:00am May 06, 2024 11:51am Start: 08-16-2023 Food Supplemt, Lactose-Reduced (Ensure Max Protein) liquid Active 30 ML PO NEEDED August 16, 2023 12:00am Multivitamin tablet (1 source) Start: 08-29-2023 End: 08-06-2024 Multivitamin tablet Discontinued 1 {tbl} PO DAILY August 29, 2023 1:00am August 06, 2024 2:22pm omeprazole 20 mg delayed release oral capsule (3 sources) Proton Pump Inhibitor Start: 07-08-2024 End: 08-06-2024 take 1 capsule by mouth once daily Omeprazole 20 mg capsule,delayed release(DR/EC) Discontinued 20 mg PO daily July 08, 2024 1:00am August 06, 2024 2:22pm Start: 08-31-2023 End: 05-06-2024 take 1 capsule by mouth once daily Omeprazole 20 mg capsule,delayed release(DR/EC) Discontinued 20 mg PO DAILY 60 60 August 31, 2023 1:00am May 06, 2024 11:53am tamsulosin hydrochloride 0.4 mg oral capsule (2 sources) alpha-Adrenergic Anish Start: 08-29-2023 End: 05-06-2024 take 2 capsules by mouth at bedtime Tamsulosin 0.4 mg capsule Discontinued 0.8 mg PO AT BEDTIME August 29, 2023 1:00am May 06, 2024 11:53am Start: 08-29-2023 take 0.8 mg by mouth at bedtim e Tamsulosin Active 0.8 MG PO AT BEDTIME August 29, 2023 12:00am thiamine 100 mg oral tablet (3 sources) Start: 07-08-2024 End: 08-06-2024 take 1 tablet by mouth once daily Thiamine Hcl (Vitamin B1) 100 mg tablet Discontinued 100 mg PO daily July 08, 2024 1:00am August 06, 2024 2:22pm Start: 08-16-2023 End: 05-06-2024 take 1 tablet by mouth once daily Thiamine Hcl (Vitamin B1) 100 mg tablet Discontinued 100 mg PO DAILY August 16, 2023 1:00am May 06, 2024 11:53am Problems Active Problems Problem Classification Problem Date Documented Da te Episodic/Chronic Acute cerebrovascular disease (10 sources) Cerebral infarction, unspecified; Translations: [Cerebrovascular accident] Onset: 4 Chronic Alcohol-related disorders (11 sources) Alcohol dependence with withdrawal, unspecified; Translations: [Alcohol abuse] Onset: 2 08-29-2023 Chronic Comment on above: IN RECOVERY Cardiac and circulatory congenital anomalies (10 sources) Patent foramen ovale; Translations: [PFO (patent foramen ovale) ([facility])] Onset: 5 10-08-2024 Chronic Coagulation and hemorrhagic disorders (3 sources) Thrombocytopenia, unspecified; Translations: [Thrombocytopenic disorder] Onset: 3 08-16-2023 Chronic E Codes: Unspecified (1 source) Presence of alcohol in blood, level not specified; Translations: [Presence of alcohol in blood, level not specified] Onset: 3 Episodic Esophageal disorders (3 sources) Gastroesophageal reflux disease; Translations: [Gastro-esophageal reflux disease without esophagitis] 08-22-2023 Chronic Essential hypertension (11 sources) Hypertensive disorder; Translations: [Essential (primary) hypertension] Onset: 5 08-16-2023 Chronic Hemorrhoids (2 sources) Hemorrhoids; Translations: [Unspecified hemorrhoids] 08-16-2023 Episodic Malaise and fatigue (3 sources) Weakness; Translations: [Weakness] Onset: 3 Episodic Mood disorders (6 sources) Depressive disorder; Translations: [Depression] Onset: 5 08-16-2023 Chronic Open wounds of extremities (4 sources) Laceration of left index finger; Translations: [Laceration without foreign body of left index finger without damage to nail, initial encounter] 04-09-2018 Episodic Osteoarthritis (2 sources) Arthritis; Translations: [Unspecified osteoarthritis, unspecified site] 08-16-2023 Chronic Other circulatory disease (1 source) History of cerebrovascular accident; Translations: [Personal history of transient ischemic attack (TIA), and cerebral infarction without residual deficits] 11-10-2024 Episodic Other circulatory disease (2 sources) Personal history of transient ischemic attack (TIA), and cerebral infarction without residual deficits; Translations: [Personal history of transient ischemic attack (TIA), and cerebral infarction without residual deficits] Onset: 5 Episodic Other connective tissue disease (2 sources) Neuropathic pain; Translations: [Neuralgia and neuritis, unspecified] 08-16-2023 Episodic Other gastrointestinal disorders (2 sources) Stool DNA-based colorectal cancer screening positive; Translations: [Other fecal abnormalities] 08-16-2023 Episodic Other gastrointestinal disorders (1 source) Other fecal abnormalities; Translations: [Abnormal feces] 08-16-2023 Episodic Other nutritional; endocrine; and metabolic disorders (1 source) Hypocalcemia; Translations: [Hypocalcemia] Onset: 3 Chronic Other nutritional; endocrine; and metabolic disorders (1 source) Other symptoms and signs concerning food and fluid intake; Translations: [Other symptoms and signs concerning food and fluid intake] Onset: 3 Episodic Peripheral and visceral atherosclerosis (1 source) Chronic total occlusion of artery of the extremities; Translations: [Chronic total occlusion of artery of the extremities] Onset: 5 Chronic Residual codes; unclassified (1 source) Pain, unspecified; Translations: [Pain, unspecified] Onset: 3 Episodic Residual codes; unclassified (2 sources) Tobacco use and exposure - finding; Translations: [Tobacco use] 08-16-2023 Episodic Residual codes; unclassified (1 source) Family history of dissection of aorta; Translations: [Family history of ischemic heart disease and other diseases of the circulatory system] 08-21-2024 Episodic Substance-related disorders (4 sources) Smoker; Translations: [Nicotine dependence, unspecified, uncomplicated] Onset: 5 10-08-2024 Chronic Unclassified (1 source) Contact with and (suspected) exposure to COVID-19; Translations: [Contact with and (suspected) exposure to COVID-19] Onset: 3 Past or Other Problems Problem Classification Problem Date Documented Da te Episodic/Chronic Cardiac dysrhythmias (4 sources) Tachycardia; Translations: [Tachycardia, unspecified] Onset: 04-01-2012 11-10-2024 Episodic Other circulatory disease (1 source) Other specified symptoms and signs involving the circulatory and respiratory systems; Translations: [Other specified symptoms and signs involving the circulatory and respiratory systems] Onset: 10-05-2024 Episodic Unclassified (5 sources) Onset: 10-08-2024 Resolved: 11-10-2024 10-08-2024 Results Test Name Value Interpretation Reference Range Facility CT TRANSFER OF OUTSIDE FILMS on 11-17-2024 CT TRANSFER OF OUTSIDE FILMS Outside images for comparison or treatment purposes, not interpreted by Radiologists. Normal [facility] MR TRANSFER OF OUTSIDE FILMS on 11-17-2024 MR TRANSFER OF OUTSIDE FILMS Outside images for comparison or treatment purposes, not interpreted by Radiologists. Normal [facility] Study Interpretation of outs jagruti studyon 11-17-2024 Outside images for comparison or treatment purposes, not interpreted by Radiologists. IMAGING Outside images for comparison or treatment purposes, not interpreted by Radiologists. IMAGING Abd Aortic/IVC Duplex scanon 09-24-2024 Abd Aortic/IVC Duplex scan [facility] [address] [place] [address] Abd Aortic/IVC Duplex scan 09/24/24 0859 MR#: [id number] Acct: [id number] Name: ANGELA RANDLE Rep #: [id number] : 1970 54 From: Erick Logan MD Attending Dr: Dr. Aftab Cabrales MD Status: REG C MARK Ordering Dr: Aftab Cabrales MD Date: 09/24/24 Location: [facility] Sex: M C Admitted: Reason For Study Reason For Study: Family HX AAA Aorta Measurements Aorta Doppler Measurements Proximal aorta measures1.80 x 1.94cm. in cross-sectional Peak systolic flow velocities within the proximal aorta axis. measure 94.1 cm/sec. Proximal aorta measures1.95cm. in longitudinal axis. Peak systolic flow velocities within the mid aorta measure Mid aorta measures2.01 x 1.82cm. in cross-sectional axis. 90.4 cm/sec. Mid aorta measures1.87cm. in longitudinal axis. Peak systolic flow velocities within the distal aorta Distal aorta measures1.64 x 1.72cm. in cross-sectional axis.measure 88.6 cm/sec. Distal aorta measures1.69cm. in longitudinal axis. Heterogenous irregular plaque noted at prox and mid AO. Left Iliac Artery Left iliac artery measures 1.14 x 1.09 cm. in the cross-sectional axis. Left iliac artery measures 1.16 cm. in the longitudinal axis. Peak systolic velocity in the left iliac artery measures 108.6 cm/sec. Right Iliac Artery Right iliac artery measures 0.85 x 0.86 cm. in the cross-sectional axis. Right iliac artery measures 0.82 cm. in the longitudinal axis. Peak systolic velocity in the right iliac artery measures 83.2 cm/sec. Procedure Aorta IVC Iliac vasculature or bypass grafts [id number]. The exam was diagnostic. Exam performed in department. VL/Abd Aortic/IVC Duplex scan Interpretation Summary Aorta patent, normal caliber Bilateral iliac arteries patent, normal caliber Ordering Physician: Aftab Cabrales Referring Physician: [place] Performed By: Frederick Guillory, T 09/24/241832 Date Erick Logan MD CC: Dr. Aftab Cabrales MD; [facility] Date Dictated: 09/24/24 0859 Date Transcribed: 09/24/241832 Media Sales Executive: Signed [facility] Abdominal aortic duplex scan reportOrdered By: Erick Logan on 09-24-2024 US.doppler Thoracic and abdominal aorta [facility] [address] [place] [address] Abd Aortic/IVC Duplex scan 09/24/24 0859 MR#: [id number] Acct: [id number] Name: ANGELA RANDLE Rep #:[id number] : 1970 54 From: Erick Padilla Attending Dr: Dr. Aftab Cabrales MD S tatus: REG CLI Ordering Dr: Aftab Cabrales MD Date: Location: [facility] Sex: M C Admitted: Reason For Study Reason For Study: Family HX AAA Aorta Measurements Aorta Doppler Measurements Proximal aorta measures1.80 x 1.94cm. in cross-sectional Peak systolic flow velocities within the proximal aorta axis. measure 94.1 cm/sec. Proximal aorta measures1.95cm. in longitudinal axis. Peak systolic flow velocities within the mid aorta measure Mid aorta measures2.01 x 1.82cm. in cross-sectional axis. 90.4 cm/sec. Mid aorta measures1.87cm. in longitudinal axis. Peak systolic flow velocities within the distal aorta Distal aorta measures1.64 x 1.72cm. in cross-sectional axis.measure 88.6 cm/sec. Distal aorta measures1.69cm. in longitudinal axis. Heterogenous irregular plaque noted at prox and mid AO. Left Iliac Artery Left iliac artery measures 1.14 x 1.09 cm. in the cross-sectional axis. Left iliac artery measures 1.16 cm. in the longitudinal axis. Peak systolic velocity in the left iliac artery measures 108.6 cm/sec. Right Iliac Artery Right iliac artery measures 0.85 x 0.86 cm. in the cross-sectional axis. Right iliac artery measures 0.82 cm. in the longitudinal axis. Peak systolic velocity in the right iliac artery measures 83.2 cm/sec. Procedure Aorta IVC Iliac vasculature or bypass grafts [id number]. The exam was diagnostic. Exam performed in department. VL/Abd Aortic/IVC Duplex scan Interpretation Summary Aorta patent, normal caliber Bilateral iliac arteries patent, normal caliber Ordering Physician: Aftab Cabrales Referring Physician: STEPHEN Performed By: Frederick Guillory RVTiffany 09/24/24 1833 Date _ Erick Logan MD CC: Dr. Aftab Cabrales MD; [facility] ~ Date Dictated: 09/24/24 0859 Date Transcribed: 09/24/241832 Media Sales Executive: Signed [facility] Work Phone: Venous Duplex US - Luis A Extre [facility] 08-22-2024 Venous Duplex US - Luis A Extrem [facility] [address] [place] [address] Venous Duplex US - Luis A Extrem 08/22/24 1358 MR#: [id number] Acct: [id number] Name: ANGELA RANDLE Rep #: [id number] : 1970 53 From: Erick Logan MD Attending Dr: Dr. Aftab Cabrales MD Status: REG C LI Ordering Dr: Aftab Cabrales MD Date: 08/22/24 Location: [facility] Sex: M C Admitted: Reason For Study: PFO, CVA RIGHT LEFT GSV is normal. GSV is normal. CFV is compressible, spontaneous, phasic, CFV is compressible, spontaneous, phasic, competent and demonstrates normal competent, and demonstrates normal augmentation. augmentation. FV is compressible, spontaneous, phasic, FV is compressible, spontaneous, phasic, competent and demonstrates normal competent and demonstrates normal augmentation. augmentation. POP V is compressible, spontaneous, phasic, POP V is compressible, spontaneous, phasic, competent and demonstrates normal competent and demonstrates normal augmentation. augmentation. T/P Trunk is compressible. T/P Trunk is compressible. PTV is compressible. PTV is compressible. RT PerV is compressible. LT PerV is compressible. Procedure This is a venous duplex using B-mode, color flow and spectral Doppler. Exam performed in department. A preliminary report was called and/or faxed to [facility] Voicemail. VL/Venous Duplex US - Luis A Extrem Interpretation Summary Deep veins of the bilateral lower extremities are patent and compressible segmentally. There is no evidence of bilateral lower extremity deep vein thrombosis. The bilateral great saphenous veins appear patent and compressible segmentally. Ordering Physician: Aftab Cabrales Referring Physician: [facility] Performed By: Isabella Wright RVT 08/25/24 1816 Date Erick Logan MD CC: Dr. Aftab Cabrales MD; [facility] Date Dictated: 08/22/24 1358 Date Transcribed: 08/25/241815 Media Sales Executive: Signed Normal [facility] 12 Lead EKG performed by [facility] on 08-06-2024 12 Lead EKG performed by [facility] [address] [place] [address] 12 Lead EKG performed by [facility] 08/06/24 1315 MR#: [id number] Acct: [id number] Name: ELDERANGELA Rep #: [id number] : 1970 53 From: Aftab Cabrales MD Attending Dr: Dr. Aftab Cabrales MD Status: DEP A MB Ordering Dr: Aftab Cabrales MD Date: 08/06/24 [place] [facility] [place] M C Admitted: [facility]/12 Lead EKG performed by [facility] ECG Report Interpretation ---Sinus Rhythm -Old anterior infarct. ABNORMAL Electronically signed on 08/06/2024 at 14:44 by Aftab Cabrales Software Version [id number] 08/06/24 1448 Date Aftab Cabrales MD CC: [facility] Date Dictated: 08/06/241314 Date Transcribed: 08/06/241314 Media Sales Executive: [place] Signed Normal [facility] Cardiology Visit Reporton Cardiology Visit Report [facility] [address] [place] [address] OFFICE VISIT Date of Service: 08/06/24 MR#: [id number] Acct: [id number] Name: ANGELA RANDLE Martin Rep #: [id number] : 1970 Provider: Dr. Aftab Cabrales MD Age/Sex: 53/M Location: [facility] Status: Signed HPI HPI History of Present Illness Details: Pleasant 53-year-old man with a history of hypertension who had presented last year with left-sided weakness to the emergency room and an MRI showed an acute to subacute infarction of the right basal ganglia and sparks radiata measuring 1.4 cm. It did not look like he had any thromboembolic infarct patent. His blood pressure was markedly elevated hemoglobin A1c and lipids were within normal limits. He was seen by neurology who recommended dual antiplatelet therapy for 21 days followed by lifelong aspirin atorvastatin. An echocardiogram was done which demonstrated a PFO with [id number] shunting and he was sent for a ADE which did confirm the small PFO. His blood pressure has been under much better control at this particular time. He was sent here for further evaluation and management. There is also a question as to whether he needs closure of his PFO with an Amplatzer occluder device. He also had an event monitor placed which demonstrated Mobitz 1 AV block. He denies any neck arm or jaw discomfort to suggest angina. His physical exam here today is unremarkable. 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 Accompanied by: Self Is patient in pain?: No Allergies No Known Allergies Allergy (Verified 08/06/24 13:21) Medications ???Medication ???Instructions ???Recorded ???Confirmed ???Type acetaminophen 325 mg capsule 325 mg PO Q6H PRN pain 04/09/18 08/06/24 History (Tylenol) gabapentin 300 mg capsule 300 mg PO TID 08/16/23 08/06/24 History mirtazapine 30 mg tablet 30 mg PO QHS 08/16/23 08/06/24 History aspirin 81 mg tablet,delayed 81 mg PO DAILY 05/06/24 08/06/24 History release (Adult Low Dose Aspirin) amlodipine 5 mg tablet 5 mg PO QDAY 07/08/24 08/06/24 History atorvastatin 40 mg PO DAILY 07/08/24 08/06/24 History hydroxyzine pamoate 50 mg capsule 50 mg PO TID PRN 07/08/24 08/06/24 History melatonin 5 mg capsule 10 mg PO QHS PRN 07/08/24 08/06/24 History meloxicam 15 mg tablet 15 mg PO DAILY PRN 07/08/24 08/06/24 History Have you fallen in the past year?: No PFSH Medical History CVA (cerebral vascular accident) PFO (patent foramen ovale) Gastric reflux Smoker History of edema Positive colorectal cancer screening using Cologuard test Arthritis Hemorrhoids Neuropathic pain Thrombocytopenia Depression Tobacco use Alcohol abuse HTN (hypertension) Surgical History History of vocal cord polypectomy Family History Father CAD (coronary artery disease) CVA (cerebral vascular accident) Diabetes Grandmother Myocardial infarction Cancer Grandfather Myocardial infarction Brother Hypertension Sister Diabetes Social History Smoking Status: Current every day smoker tobacco type: cigarettes alcohol intake: current alcohol intake frequency: 0-2 drinks per day Alcohol type: beer details: recovering alcoholic ROS Const Const: Positive for fatigue, difficulty sleeping and poor appetite; Negative for weakness, headache(s) or daytime sleepiness ENT ENT: Negative for headache(s), dizziness or Nosebleed/epistaxis Cardio Chest Pain: No Palpitations: No Edema: None Resp Respiratory: Negative for SOB with activity, SOB at rest, SOB orthopnea SOB lying down or Cough GI GI: Positive for nausea (usually at night); Negative vomiting or heartburn Neuro Neuro: Negative for dizziness, lightheadedness, near syncope, headache(s) or weakness Endo Endo: Positive for fatigue Cardiology Exam Const Appearance: cooperative, healthy appearing, no acute distress, well developed and well groomed Nutritional Appearance: average body habitus and well nourished Orientation: alert, awake and oriented x3 Head Head: normal to inspection, normocephalic and atraumatic Ears: hearing grossly normal bilaterally and external ears normal Nose: external nose normal, nares normal, nasal mucous membranes and turbinates normal, septum normal and no nasal discharge Face and Sinus: face symmetric Mouth: oral mucosae normal, tongue nor (more content not included)... Normal [facility] Echo Completeon 05-22-2024 Echo Complete [facility] [address] [place] [address] Echo Complete 05/22/24 1042 MR#: [id number] Acct: [id number] Name: ANGELA RANDLE Rep #: [id number] : 1970 53 From: Aftab Cabrales MD Attending Dr: Dr. Joel Prasad, Status: REG CLI Ordering Dr: Joel Prasad DO Date: 05/22/24 Location: CVS Sex: M C Admitted: Reason For Study: Patent Foramen Ovale Procedure This was a 2D Doppler, Color Flow transthoracic echocardiogram. Exam performed in department. Left Ventricle Normal LV size. Left ventricular systolic function is normal. The left ventricular ejection fraction is 60 %. No regional wall motion abnormalities noted. Right Ventricle Normal RV size. Normal systolic function. Atria Normal left atrium. Normal right atrium. Mitral Valve Normal mitral valve. Tricuspid Valve Normal tricuspid valve. Aortic Valve Trisinus/trileaflet aortic valve. Pulmonic Valve Normal pulmonic valve. Great Vessels Normal aortic root. The pulmonary artery is normal size. Normal inferior vena cava. Pericardium/Pleural No pericardial effusion. MMode/2D Measurements Calculations LVIDd: 4.8 cm IVSd: 0.96 cm LVOT diam: 2.1 cm LVIDs: 3.5 cm LVPWd: 0.89 cm LVOT area: 3.5 cm2 RVDd: 3.7 cm FS: 28.1 % Ao root diam: 3.3 cm asc Aorta Diam: 3.2 cm LAV(MOD-sp4): 45.2 ml LA dimension: 3.7 cm LVAd ap4: 30.5 cm2 SV(MOD-sp4): 55.2 ml SV(sp4-el): 59.2 ml LVLd ap4: 7.6 cm EDV(MOD-sp4): 100.1 ml EDV(sp4-el): 104.4 ml LVAs ap4: 19.1 cm2 LVLs ap4: 6.9 cm ESV(MOD-sp4): 44.9 ml ESV(sp4-el): 45.2 ml EF(MOD-sp4): 55.2 % EF(sp4-el): 56.7 % TAPSE: 1.9 cm LA A4 area: 17.3 cm2 RA A4 area: 14.9 cm2 Time Measurements MV dec time: 0.19 sec Doppler Measurements Calculations MV E max elisabeth: 77.2 cm/sec Lat Peak E' Elisabeth: 16.0 cm/sec Med Peak E' Elisabeth: 12.3 cm/sec MV A max elisabeth: 61.3 cm/sec E/E' lat: 4.8 E/E' med: 6.3 MV E/A: 1.3 MV V2 max: 81.9 cm/sec MV P1/2t max elisabeth: 79.1 cm/sec Ao V2 max: 124.0 cm/sec MV max P.7 mmHg MV P1/2t: 68.5 msec Ao max P.2 mmHg MV V2 mean: 46.5 cm/sec MV dec slope: 338.1 cm/sec2 Ao V2 mean: 85.2 cm/sec MV mean P.0 mmHg Ao mean P.3 mmHg MV V2 VTI: 28.9 cm MVA(P1/2t): 3.2 cm2 Ao V2 VTI: 28.5 cm MVA(VTI): 2.6 cm2 AV (velocity ratio): 0.77 KVNG(I,D): 2.7 cm2 KVNG(V,D): 2.7 cm2 LV V1 max: 96.9 cm/sec SV(LVOT): 76.2 ml PA V2 max: 93.4 cm/sec LV V1 max P.8 mmHg PA max PG (full): 1.5 mmHg LV V1 mean P.9 mmHg LV V1 mean: 63.4 cm/sec LV V1 VTI: 21.9 cm ECHO/Echo Complete Interpretation Summary Normal LV size. Left ventricular systolic function is normal. The left ventricular ejection fraction is 60 %. Structurally normal valves. Ordering Physician: Joel Prasad Referring Physician: Joel Prasad Performed By: Keven Palma and Student 05/22/24 1256 Date Aftab Cabrales MD CC: Dr. Joel Prasad DO; [facility] Date Dictated: 05/22/24 1042 Date Transcribed: 05/22/24 125 Media Sales Executive: Signed Normal [facility] Echo Transesophageal (ADE)on 05-06-2024 Echo Transesophageal (ADE) [facility] Cardi[facility] Services [address] [place] [address] Echo Transesophageal (ADE) 05/06/24 1043 MR#: [id number] Acct: [id number] Name: ANGELA RANDLE Rep #: [id number] : 1970 53 From: Aftab Cabrales MD Attending Dr: DEWAYNE GOLDBERG Status: REG CLI Ordering Dr: DEWAYNE GOLDBERG Date: 05/06/24 Location: CVS Sex: M C Admitted: Reason For Study: PFO Medication ADE probe 6VT-D (SN [id number]) passed without difficulty. No complications were noted. Performed a rapid injection of agitated mix of 9 cc saline and 1cc air to assess for atrial septal defect. Fentanyl 50 mcg given slow IVP. Versed 4 mg given slow IVP. Cetacaine Topical Leckrone given X3 orally. Left Ventricle Normal LV size. Left ventricular systolic function is normal. The left ventricular ejection fraction is 65 %. No regional wall motion abnormalities noted. Right Ventricle Normal RV size. Normal systolic function. Atria Patent foramen ovale. Normal left atrium. No thrombus is detected in the left atrial appendage. Normal right atrium. Mitral Valve Normal mitral valve. Tricuspid Valve Normal tricuspid valve. Aortic Valve Normal aortic valve. Trisinus/trileaflet aortic valve. Pulmonic Valve Normal pulmonic valve. Vessels Normal aortic root. Normal arch. The pulmonary artery is normal size. Pericardium No pericardial effusion. ECHO/Echo Transesophageal (ADE) Interpretation Summary Normal LV size. Left ventricular systolic function is normal. The left ventricular ejection fraction is 65 %. Patent foramen ovale. Ordering Physician: DEWAYNE GOLDBERG Referring Physician: DEWAYNE GOLDBERG Performed By: Shnaelle You, [facility] 05/06/24 1304 Date Aftab Cabrales MD CC: DEWAYNE GOLDBERG; VISHNU BURCIAGA Date Dictated: 05/06/24 1043 Date Transcribed: 05/06/24 1304 Media Sales Executive: Signed Normal [facility] BASIC METABOLIC PANELon 07-3 Anion gap [Moles/Vol] 18 mmol/L Normal 10-20 [facility] Comment on above: Order Comment: [facility] has implemented the eGFR calculation approach that does not have a coefficient for race that conforms to the NKF-ASN Task Force Recommendations. Performed By: #### 4 [id number] #### LAB [address] [place] [address] Nir Matthews M.D. [id number] Calcium [Mass/Vol] 10.4 mg/dL High 8.4-10.2 [facility] Comment on above: Order Comment: [facility] has implemented the eGFR calculation approach that does not have a coefficient for race that conforms to the NKF-ASN Task Force Recommendations. Performed By: #### 4 [id number] #### LAB [address] [place] [address] Nir Matthews M.D. [id number] Chloride [Moles/Vol] 98 mmol/L Normal 98-108 [facility] Comment on above: Order Comment: [facility] has implemented the eGFR calculation approach that does not have a coefficient for race that conforms to the NKF-ASN Task Force Recommendations. Performed By: #### 4 6124 #### LAB [address] [place] [address] Nir Matthews M.D. [id number] Creatinine [Mass/Vol] 0.79 mg/dL Normal 0.50-1.30 [facility] Comment on above: Order Comment: [facility] has implemented the eGFR calculation approach that does not have a coefficient for race that conforms to the NKF-ASN Task Force Recommendations. Performed By: #### 4 6124 #### LAB [address] [place] [address] Nir Matthews M.D. [id number] EGFR 107 mL/min/1.73 m2 Normal >=60 [facility] Comment on above: Order Comment: [facility] has implemented the eGFR calculation approach that does not have a coefficient for race that conforms to the NKF-ASN Task Force Recommendations. Result Comment: Mady mated GFR was calculated using the 2020 CKD-EPI creatinine equation. Performed By: #### 4 [id number] #### LAB [address] [place] [address] Nir Matthews M.D. [id number] Glucose [Mass/Vol] 101 mg/dL High 65-99 [facility] Comment on above: Order Comment: [facility] has implemented the eGFR calculation approach that does not have a coefficient for race that conforms to the NKF-ASN Task Force Recommendations. Performed By: #### 4 6124 #### LAB [address] [place] [address] Nir Matthews M.D. [id number] HCO3 (Bld) [Moles/Vol] 26 mmol/L Normal 21-32 [facility] Comment on above: Order Comment: [facility] has implemented the eGFR calculation approach that does not have a coefficient for race that conforms to the NKF-ASN Task Force Recommendations. Performed By: #### 4 6124 #### LAB [address] [place] [address] Nir Matthews M.D. [id number] Potassium [Moles/Vol] 4.1 mmol/L Normal 3.5-5.1 [facility] Comment on above: Order Comment: [facility] has implemented the eGFR calculation approach that does not have a coefficient for race that conforms to the NKF-ASN Task Force Recommendations. Performed By: #### 4 6124 #### LAB [address] [place] [address] Nir Matthews M.D. [id number] Sodium [Moles/Vol] 138 mmol/L Normal 135-145 [facility] Comment on above: Order Comment: [facility] has implemented the eGFR calculation approach that does not have a coefficient for race that conforms to the NKF-ASN Task Force Recommendations. Performed By: #### 4 6124 #### LAB [address] [place] [address] Nir Matthews M.D. [id number] Urea nitrogen [Mass/Vol] 4 mg/dL Low 8-25 [facility] Comment on above: Order Comment: [facility] has implemented the eGFR calculation approach that does not have a coefficient for race that conforms to the NKF-ASN Task Force Recommendations. Performed By: #### 4 6124 #### LAB [address] [place], [place] [address] Nir Matthews M.D. [id number] Urea nitrogen/Creatinine [Mass ratio] 5.1 mg/mg Low 10.0-20.0 [facility] Comment on above: Order Comment: [facility] has implemented the eGFR calculation approach that does not have a coefficient for race that conforms to the NKF-ASN Task Force Recommendations. Performed By: #### 4 6124 #### LAB [address] [place], [place] [address] Nir Matthews M.D. [id number] BASIC METABOLIC PANELon 01-27 Anion gap [Moles/Vol] 18 mmol/L Normal 10-20 [facility] Comment on above: Order Comment: [facility] has implemented the eGFR calculation approach that does not have a coefficient for race that conforms to the NKF-ASN Task Force Recommendations. Performed By: #### 4 6124 #### LAB [address] [place], [place] [address] Nir Matthews M.D. [id number] Calcium [Mass/Vol] 9.6 mg/dL Normal 8.4-10.2 [facility] Comment on above: Order Comment: [facility] has implemented the eGFR calculation approach that does not have a coefficient for race that conforms to the NKF-ASN Task Force Recommendations. Performed By: #### 4 6124 #### LAB [address] [place] [id number] Nir Matthews M.D. [id number] Chloride [Moles/Vol] 93 mmol/L Low 98-108 [facility] Comment on above: Order Comment: [facility] has implemented the eGFR calculation approach that does not have a coefficient for race that conforms to the NKF-ASN Task Force Recommendations. Performed By: #### 4 6124 #### LAB [address] [place] [id number] Nir Matthews M.D. [id number] Creatinine [Mass/Vol] 0.79 mg/dL Normal 0.50-1.30 [facility] Comment on above: Order Comment: [facility] has implemented the eGFR calculation approach that does not have a coefficient for race that conforms to the NKF-ASN Task Force Recommendations. Performed By: #### 4 6124 #### LAB [address] [place] [address] Nir Matthews M.D. [id number] EGFR 107 mL/min/1.73 m2 Normal >=60 [facility] Comment on above: Order Comment: [facility] has implemented the eGFR calculation approach that does not have a coefficient for race that conforms to the NKF-ASN Task Force Recommendations. Result Comment: Mady mated GFR was calculated using the 2020 CKD-EPI creatinine equation. Performed By: #### 4 6124 #### LAB [address] [place] [address] Nir Matthews M.D. [id number] Glucose [Mass/Vol] 90 mg/dL Normal 65-99 [facility] Comment on above: Order Comment: [facility] has implemented the eGFR calculation approach that does not have a coefficient for race that conforms to the NKF-ASN Task Force Recommendations. Performed By: #### 4 6124 #### LAB [address] [place] [address] Nir Matthews M.D. [id number] HCO3 (Bld) [Moles/Vol] 23 mmol/L Normal 21-32 [facility] Comment on above: Order Comment: [facility] has implemented the eGFR calculation approach that does not have a coefficient for race that conforms to the NKF-ASN Task Force Recommendations. Performed By: #### 4 6124 #### LAB [address] [place] [address] Nir Matthews M.D. [id number] Potassium [Moles/Vol] 4.6 mmol/L Normal 3.5-5.1 [facility] Comment on above: Order Comment: [facility] has implemented the eGFR calculation approach that does not have a coefficient for race that conforms to the NKF-ASN Task Force Recommendations. Performed By: #### 4 6124 #### LAB [address] [place], [place] [address] Nir Matthews M.D. [id number] Sodium [Moles/Vol] 129 mmol/L Low 135-145 [facility] Comment on above: Order Comment: [facility] has implemented the eGFR calculation approach that does not have a coefficient for race that conforms to the NKF-ASN Task Force Recommendations. Performed By: #### 4 6124 #### LAB [address] [place], [place] [address] Nir Matthews M.D. [id number] Urea nitrogen [Mass/Vol] 5 mg/dL Low 8- [facility] Comment on above: Order Comment: [facility] has implemented the eGFR calculation approach that does not have a coefficient for race that conforms to the NKF-ASN Task Force Recommendations. Performed By: #### 4 6124 #### LAB [address] [place] [address] Nir Matthews M.D. [id number] Urea nitrogen/Creatinine [Mass ratio] 6.3 mg/mg Low 10.0-20.0 [facility] Comment on above: Order Comment: [facility] has implemented the eGFR calculation approach that does not have a coefficient for race that conforms to the NKF-ASN Task Force Recommendations. Performed By: #### 4 6124 #### LAB [address] [place] [id number] Nir Matthews M.D. [id number] BASIC METABOLIC PANELon - Anion gap [Moles/Vol] 17 mmol/L Normal 10-20 [facility] Comment on above: Order Comment: [facility] has implemented the eGFR calculation approach that does not have a coefficient for race that conforms to the NKF-ASN Task Force Recommendations. Performed By: #### 4 6124 #### [facility] [address] [place] [id number] Nir Matthews M.D. [id number] Calcium [Mass/Vol] 9.4 mg/dL Normal 8.4-10.2 [facility] Comment on above: Order Comment: [facility] has implemented the eGFR calculation approach that does not have a coefficient for race that conforms to the NKF-ASN Task Force Recommendations. Performed By: #### 4 6124 #### LAB [address] [place] [address] Nir Matthews M.D. [id number] Chloride [Moles/Vol] 95 mmol/L Low 98-108 [facility] Comment on above: Order Comment: [facility] has implemented the eGFR calculation approach that does not have a coefficient for race that conforms to the NKF-ASN Task Force Recommendations. Performed By: #### 4 6124 #### LAB [address] [place] [address] Nir Matthews M.D. [id number] Creatinine [Mass/Vol] 0.76 mg/dL Normal 0.50-1.30 [facility] Comment on above: Order Comment: [facility] has implemented the eGFR calculation approach that does not have a coefficient for race that conforms to the NKF-ASN Task Force Recommendations. Performed By: #### 4 6124 #### LAB [address] [place] [address] Nir Matthews M.D. [id number] EGFR 108 mL/min/1.73 m2 Normal >=60 [facility] Comment on above: Order Comment: [facility] has implemented the eGFR calculation approach that does not have a coefficient for race that conforms to the NKF-ASN Task Force Recommendations. Result Comment: Mady mated GFR was calculated using the 2020 CKD-EPI creatinine equation. Performed By: #### 4 6124 #### LAB [address] [place] [address] Nir Matthews M.D. [id number] Glucose [Mass/Vol] 92 mg/dL Normal 65-99 [facility] Comment on above: Order Comment: [facility] has implemented the eGFR calculation approach that does not have a coefficient for race that conforms to the NKF-ASN Task Force Recommendations. Performed By: #### 4 6124 #### [facility] LAB [address] [place] [address] Nir Matthews M.D. [id number] HCO3 (Bld) [Moles/Vol] 21 mmol/L Normal 21-32 [facility] Comment on above: Order Comment: [facility] has implemented the eGFR calculation approach that does not have a coefficient for race that conforms to the NKF-ASN Task Force Recommendations. Performed By: #### 4 6124 #### [facility] LAB [address] [place] [address] Nir Matthews M.D. [id number] Potassium [Moles/Vol] 4.5 mmol/L Normal 3.5-5.1 [facility] Comment on above: Order Comment: [facility] has implemented the eGFR calculation approach that does not have a coefficient for race that conforms to the NKF-ASN Task Force Recommendations. Performed By: #### 4 6124 #### LAB [address] [place] [address] Nir Matthews M.D. [id number] Sodium [Moles/Vol] 128 mmol/L Low 135-145 [facility] Comment on above: Order Comment: [facility] has implemented the eGFR calculation approach that does not have a coefficient for race that conforms to the NKF-ASN Task Force Recommendations. Performed By: #### 4 6124 #### LAB [address] [place] [address] Nir Matthews M.D. [id number] Urea nitrogen [Mass/Vol] 6 mg/dL Low 8-25 [facility] Comment on above: Order Comment: [facility] has implemented the eGFR calculation approach that does not have a coefficient for race that conforms to the NKF-ASN Task Force Recommendations. Performed By: #### 4 6124 #### [facility] [address] [place] [address] Nir Matthews M.D. [id number] Urea nitrogen/Creatinine [Mass ratio] 7.9 mg/mg Low 10.0-20.0 [facility] Comment on above: Order Comment: [facility] has implemented the eGFR calculation approach that does not have a coefficient for race that conforms to the NKF-ASN Task Force Recommendations. Performed By: #### 4 6137 #### [facility] [address] [place] [address] Nir Matthews M.D. [id number] CBCon 02-14-2024 AUTO NRBC 0.0 % Normal [facility] Comment on above: Performed By: #### 4 6124 #### [facility] LAB [address] [place] [address] Nir Matthews M.D. [id number] AUTO NRBC ABS COUNT 0.00 K/mcL Normal 0.00-0.00 [facility] Comment on above: Performed By: #### 4 6124 #### LAB [address] [place] [address] Nir Matthews M.D. [id number] Erythrocyte distribution width (RBC) [Ratio] 13.7 % Normal 11.6-14.8 [facility] Comment on above: Performed By: #### 4 6179 #### LAB [address] [place] [address] Nir Matthews M.D. [id number] Hematocrit (Bld) [Volume fraction] 42.6 % Normal 41.0-53.0 [facility] Comment on above: Performed By: #### 4 6124 #### LAB [address] [place] [address] Nir Matthews M.D. [id number] Hemoglobin (Bld) [Mass/Vol] 14.8 g/dL Normal 13.5-17.5 [facility] Comment on above: Performed By: #### 4 9024 #### LAB [address] [place] [address] Nir Matthews M.D. [id number] MCH (RBC) [Entitic mass] 30.9 pg Normal 26.0-34.0 [facility] Comment on above: Performed By: #### 4 6596 #### LAB [address] [place] [address] Nir Matthews M.D. [id number] MCV (RBC) [Entitic vol] 88.9 fL Normal 80.0-100.0 [facility] Comment on above: Performed By: #### 4 6124 #### LAB [address] [place] [address] Nir Matthews M.D. [id number] MEAN CORPUSCULAR HEMOGLOBIN CONC 34.7 g/dL Normal 31.0-37.0 [facility] Comment on above: Performed By: #### 4 6124 #### [facility] [address] [place] [address] Nir Matthews M.D. [id number] Platelet mean volume (Bld) [Entitic vol] 9.1 fL Low 9.4-12.4 [facility] Comment on above: Performed By: #### 4 6124 #### LAB [address] [place] [address] Nir Matthews M.D. [id number] Platelets (Bld) [#/Vol] 218 10*3/uL Normal 150-400 [facility] Comment on above: Performed By: #### 4 6124 #### [facility] LAB [address] [place] [address] Nir Matthews M.D. [id number] RBC (Bld) [#/Vol] 4.79 10*6/uL Normal 4.50-5.90 [facility] Comment on above: Performed By: #### 4 6124 #### LAB [address] [place] [address] Nir Matthews M.D. [id number] WBC (Bld) [#/Vol] 8.94 10*3/uL Normal 4.50-11.00 [facility] Comment on above: Performed By: #### 4 6124 #### LAB [address] [place] [address] Nir Matthews M.D. [id number] CONSULTon 02-14-2024 CONSULT Neurology Inpatient Notes [facility] [place] [phone] (phone)/[phone] (fax) Patient: Angela Randle Date of : 1970 Primary Care Provider: Vishnu Burciaga MD Assessment/Plan: Patient developed sudden onset of left-sided weakness and unsteady gait on February 06, 2024. He went to the [place] [facility] this weekend described his left-sided weakness and advised to come to the hospital. CT of the head showed no bleeding. Brain MRI showed subacute right basal ganglia ischemic infarct. His cardiac echo showed PFO but he does not have any thromboembolic infarcts. His cerebrovascular risk factors include age, gender, hypertension, hyperlipidemia, and smoking history. Labs/Imaging/Ancillary test: CBC was unremarkable. Serum sodium is 128. Potassium was normal. BUN and creatinine were unremarkable. Toxicology screen was negative.Hemoglobin A1c is 5.6. LDL is 115. Cardiac echo showed PFO. Brain MRI: 1. Dlbdp-us-zyhenkan infarction in the right basal ganglia and sparks radiata measuring 1.4 cm. No mass effect or hemorrhage. 2. Chronic lacunar infarction centrally in the taisha measures [address] of the head: Suggestion of subacute infarct of the right basal ganglia. No significant mass effect. No acute intracranial hemorrhage. Impression: Subacute right basal ganglia ischemic infarct Hyponatremia Hypertension Hyperlipidemia Hiatal hernia Anxiety and depression Tobacco abuse Suggestion: Dual antiplatelet therapy with aspirin 81 mg daily and Plavix 75 mg daily for 21 days followed by aspirin 81 mg daily and atorvastatin 40 mg daily for stroke prevention. Monitor for any bleeding complications. Avoid sudden drop in blood pressure. Low-sodium and cholesterol diet. Monitor for any symptoms of sleep apnea. Outpatient therapy, regular exercise, and [place] fall precautions. Discontinue tobacco use. I have personally reviewed/visualized the patient's images, as documented above. I have personally reviewed the patient's labs, procedure and ancillary testing as listed above. Impression, plan and suggestions was discussed with the patient/family/caregive rs. Questions and concerns were discussed and addressed. This note was created in part using a speech-recognition software. Timed code: 84 minutes Includes time preparation to see the patient (reviewing previous history, notes, exam, test, procedure, and medications); Obtaining history from the patient/family/caregive rs; performing face to face evaluation and examination; ordering medications, tests, or procedures; referring and communicating with other healthcare professionals; update, counseling and education of the patient/family/caregive r; independently interpreting results (Tests, labs, imaging) and communicating results to the patient/family/caregive r; coordination of care; documenting clinical information in the electronic and other health records. Subjective (CC/HPI): Patient is a 53-year-old male with sudden onset of left-sided weakness and accompanying disequilibrium on February 06, 2024. CT of the head showed no bleeding but revealed a subacute right basal ganglia infarct. Brain MRI also revealed a subacute right basal ganglia infarct. Cardiac echo showed PFO. Past medical history include: Hypertension, hyperlipidemia, hiatal hernia, anxiety and depression. Social history: History of alcohol abuse. Patient is a smoker. Denies recreational drug use. Family history: Negative for stroke. ROS: All systems reviewed and negative except pertinent positives and negatives documented in the HPI and below. Objective: BP (!) 140/94 Pulse 71 Temp 98.2 degrees F (36.8 degrees C) (Oral) Resp 17 Ht 6' 3 Wt 77.1 kg (170 lb) SpO2 97% BMI 21.25 kg/m Patient is awake and alert. Neck is supple. No carotid bruit. Heart rate and rhythm is regular. Pulses are 2+ symmetrically. Patient is oriented. Attention and comprehension were intact. Speech is fluent and is spontaneous. Language is intact. Follow simple commands. Pupils are 4 mm equally reactive to light. No ptosis, nystagmus, or visual field cuts. Face is symmetrical and facial sensation is intact. Hearing is grossly intact. Palate moved symmetrical upward. Positive shoulder shrug. Tongue is midline. Gross strength in the upper and lower extremity were 5/5. 5-/5 on left elbow extension. Normal muscle tone and bulk. No muscle fasciculations. Gross sensory is intact to pinprick, vibration, light touch, and proprioception. No tremors or abnormal movements. Finger to nose test was normal. Uzko-htui-qd-barroso test was normal. Deep tendon reflexes are symmetrical. No ankle clonus. Toes are downgoing on plantar stimulation. AUTHENTICATED BY FLAVIA NOGUEIRA, ON 02/14/2024 15:50:[address] [facility] [address] ANGIOGRAM HEAD NECKon CT ANGIOGRAM HEAD NECK EXAMINATION: CT ANGIOGRAM HEAD NECK HISTORY: ORDERING SYSTEM PROVIDED HISTORY: Stroke/TIA, determine embolic source, TECHNOLOGIST PROVIDED HISTORY: Illness/Other Reason for exam: Follow up left sided weakness Encounter Type: Subsequent/Follow-up Additional signs and symptoms: . ORDERING SYSTEM PROVIDED DIAGNOSIS CODES: R53.1 Left-sided weakness I63.9 Cerebrovascular accident (CVA), unspecified mechanism ([facility]) I63.9 Stroke determined by clinical assessment ([facility]) COMPARISON: Brain MRI from 02/14/2024 TECHNIQUE: Unenhanced CT imaging of the brain was performed. After a full dose of iodinated contrast was administered intravenously by rapid injection, multiple axial images were acquired in the arterial phase from the aortic arch to the cranial vertex. Image post-processing was then performed on an independent workstation, creating multiplanar and/or 3D reformatted images for comprehensive analysis and diagnosis of the intracranial circulation including the [place]. Any stenosis reported is calculated using the estimated diameter of the distal normal vessel (e.g., ICA) in the denominator according to NASCET criteria. Dose reduction techniques were achieved by using automated exposure control and/or adjustment of mA and/or kV according to patient size and/or use of iterative reconstruction technique. CONTRAST: IOPAMIDOL 370 MG IODINE/ML (76 %) INTRAVENOUS SOLUTION - 75 mL, FINDINGS: CTA NECK FINDINGS: Aortic arch: Imaged portion shows no evidence of aneurysm. No significant stenosis of the origins of the major arch vessels. Left carotid system: The left common carotid artery origin is widely patent. The common carotid artery is mildly disease with low-attenuation rim calcified atheromatous plaque with no evidence of a flow-limiting stenosis or occlusion. There is partially calcified atheromatous plaque at the left carotid bifurcation and proximal internal carotid artery however, this does not result in a flow-limiting (greater than 50%) stenosis or occlusion. No dissection or pseudoaneurysm. Right carotid system: The right common carotid artery origin is widely patent. The common carotid artery is mildly disease with low-attenuation rim calcified atheromatous plaque with no evidence of a flow-limiting stenosis or occlusion. There is partially calcified atheromatous plaque at the right carotid bifurcation and proximal internal carotid artery however, this does not result in a flow-limiting (greater than 50%) stenosis or occlusion. No dissection or pseudoaneurysm. Vertebral arteries: The right vertebral artery is dominant. There is partially calcified atheromatous plaque at the origin of the right vertebral artery however, this does not result in a flow-limiting (greater than 50%) stenosis or occlusion. The vessel is otherwise normal in caliber and configuration to the level of the skull base insertion at foramen magnum. The nondominant left vertebral artery appears to be widely patent from its origin to the level of the skull base insertion. No dissection or pseudoaneurysm. CTA BRAIN: Calvarium/Skull base: No evidence of fracture or destructive lesion. Mastoids and middle ears grossly clear. Paranasal sinuses: Imaged portions clear. Brain: There is no evidence of an acute intracranial hemorrhage. There is no mass effect or midline shift. There is no hydrocephalus. There is an evolving ischemic infarct within the right lentiform nucleus with extension into the right sparks radiata at, seen on the brain MRI obtained earlier in the day. A remote appearing infarct in the central aspect of the taisha is noted. These findings are superimposed on mild senescent change and cerebral volume loss and a minimal background of nonspecific white matter disease which is most commonly associated with the sequelae of chronic microvascular ischemia. No abnormal extra-axial fluid collections are identified. Anterior circulation: Evaluation of the anterior intracranial circulation demonstrates a patent appearance of the skull base internal carotid arteries. 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 The right middle cerebral artery is patent in appearance from the M1 segment to the MCA bifurcation. There appears to be a moderate severity stenosis within the right M2 segment anteriorly in the sylvian region without evidence of a branch vessel occlusion. No aneurysm. No vascular malformation. The left middle cerebral artery is patent in appearance with no evidence of a flow-limiting stenosis or occlusion. No aneurysm or vascular malformation is identified. Vertebrobasilar system: Evaluation of the posterior circulation demonstrates patent appearance of the vertebral and the cer (more content not included)... Normal [facility] Comment on above: Order Comment: [facility] has implemented the eGFR calculation approach that does not have a coefficient for race that conforms to the NKF-ASN Task Force Recommendations. ECHOCARDIOGRAM COMPLETE W BU BBLE STUDYon 02-14-2024 ECHOCARDIOGRAM COMPLETE W BUBBLE STUDY Patient Info Name: ANGELA RANDLE Age: 53 years : 1970 Gender: Male Ht: 190 cm Wt: 77 kg BSA: 2.01 m2 HR: 61 bpm BP: 140 / 94 mmHg Heart Rhythm: Sinus Rhythm Technical Quality: Good Exam Date: 02/14/2024 9:06 AM Patient Status: Inpatient Principal Librarian: Sarai Walton RCDS Exam Type: ECHOCARDIOGRAM COMPLETE W BUBBLE STUDY Study Info Indications I67.9 - Cerebrovascular disease, unspecified Referring Physician: PHUONG SILVA ; [id number] BMI: 21.25 kg/m2 Summary 1. Left ventricular systolic function is normal with an ejection fraction by Biplane Method of Discs of 63 %. 2. Right ventricular size and systolic function are normal. 3. The left ventricular diastolic function is normal. 4. No hemodynamically significant valvular disease. 5. There is a right to left shunt identified with saline contrast with free breathing and Valsalva secondary to a PFO. History/Risk Factors Tobacco Use: Current - Every Day Cerebrovascular Disease: CVA History/Risk Factors NEW SUBACUTE STROKE. Procedure(s): Complete two-dimensional, color flow and Doppler transthoracic echocardiogram is performed. 9ml Saline agitated with 1ml air, injected IV push per Lab Protocol. Left Ventricle Left ventricular chamber dimension is normal. Left ventricular systolic function is normal with an ejection fraction by Biplane Method of Discs of 63 %. Normal left ventricular mass. Left ventricular segmental wall motion is normal. The left ventricular diastolic function is normal. Right Ventricle Right ventricular size and systolic function are normal. Left Atria Left atrial chamber is mildly enlarged with a left atrial volume index of 38 ml/m2 by BP MOD. Right Atria Right atrial chamber dimension is normal. Atrial Septum There is a right to left shunt identified with saline contrast with free breathing and Valsalva secondary to a PFO. Aortic Valve The aortic valve is trileaflet. There is no aortic valve sclerosis. There is no aortic valve stenosis. There is no aortic valve regurgitation. Pulmonic Valve The pulmonic valve is normal. There is no pulmonic valve stenosis. There is trace pulmonic regurgitation. Mitral Valve The mitral valve has normal leaflets. There is no mitral valve stenosis. There is trace mitral valve regurgitation. Tricuspid Valve The tricuspid valve leaflets are normal. There is no significant tricuspid valve stenosis. There is trace tricuspid valve regurgitation. There is no pulmonary hypertension, estimated right ventricle systolic pressure is 23 mmHg. Pericardium/Pleural There is no pericardial effusion. Inferior Vena Cava Normal inferior vena cava with >50% collapse upon inspiration consistent with normal right atrial pressure. Aorta The aortic measurements are indexed to age and body surface area. The aortic root is normal measuring 3.4 cm with an index of 1.7 cm/m2. The proximal ascending aorta is normal measuring 3.0 cm with an index of 1.5 cm/m2. Left Ventricular Outflow Tract - Name Value Normal - LVOT 2D - LVOT Diameter 2.3 cm LVOT Doppler - LVOT Peak Velocity 0.9 m/s LVOT Peak Gradient 3 mmHg LVOT Mean Gradient 2 mmHg LVOT VTI 23 cm LVOT VTI/AV VTI Ratio 0.7 LVOT Stroke Volume 98 ml LVOT Stroke Index 48.82 ml/m2 Pulmonic Valve - Name Value Normal - RVOT Doppler - RVOT Peak Velocity 66 cm/s RVOT Peak Gradient 2 mmHg RVOT Mean Gradient 1 mmHg RVOT VTI 17 cm PV Doppler - PV Peak Velocity 1.07 m/s PV Peak Gradient 5 mmHg PV Mean Gradient 2 mmHg PV VTI 24 cm Mitral Valve - Name Value Normal - MV Doppler - MV Peak Velocity 0.88 m/s MV Peak Gradient 3 mmHg MV Mean Gradient 1 mmHg MV VTI 24 cm MV Decel Grayson 403 cm/s2 MV PHT 47 ms MV Area (PHT) 4.7 cm2 4.0-5.0 MV Area (Cont Eq VTI) 4.2 cm2 MV Area Index (Cont Eq VTI) 2.07 cm2/m2 MV DVI 1.03 MV Diastolic Function - MV E Peak Velocity 0.65 m/s MV A Peak Velocity 0.80 m/s MV E/A 0.8 MV Decel Time 161 ms MV Annular TDI (more content not included)... Normal [facility] HEMOGLOBIN A1Con 02-14-2024 Glucose [Mass/Vol] 114 mg/dL Normal 74-114 [facility] Comment on above: Performed By: #### 4 8202 #### [facility] [address] [address] Nir Matthews M.D. [id number] HbA1c (Bld) [Mass fraction] 5.6 % Normal 4.2-5.6 [facility] Comment on above: Performed By: #### 4 8202 #### [facility] [address] [address] Nir Matthews M.D. [id number] LIPID PANELon 02-14-2024 Cholesterol [Mass/Vol] 171 mg/dL Normal 100-199 [facility] Comment on above: Performed By: #### 4 6087 #### [facility] [address] [id number] Nir Matthews M.D. [id number] Cholesterol in HDL [Mass/Vol] 43 mg/dL Normal 40-59 [facility] Comment on above: Performed By: #### 4 6087 #### [facility] [address] [address] Nir Matthews M.D. [id number] Cholesterol.total/C holesterol in HDL [Mass ratio] 4.0 {ratio} Normal [facility] Comment on above: Result Comment: Male s Cholesterol/HDL Ratio: Average risk: 5.0 1/2 average risk: 3.4 2 x average risk: 9.6 Performed By: #### 4 6087 #### LAB [address] [address] Nir Matthews M.D. [id number] LDL CHOLESTEROL CALCULATED 115 mg/dL Normal 10-130 [facility] Comment on above: Result Comment: [facility] Cholesterol Education Program Guidelines: LDL Cholesterol Optimal: <100 mg/dL Near Optimal/above Optimal: 100-129 mg/dL Borderline High: 130-159 mg/dL High: 160-189 mg/dL Very High: greater than or equal to 190 mg/dL Performed By: #### 4 6087 #### LAB [address] [address] Nir Matthews M.D. [id number] NON HDL CHOL 128 mg/dL Normal [facility] Comment on above: Result Comment: [facility] Cholesterol Education [facility] Guidelines: NON HDL Cholesterol Desirable: <130 mg/dL Borderline High: 130-159 mg/dL High: 160-189 mg/dL Very High: > or = 190 mg/dL Performed By: #### 4 6087 #### LAB [address] [address] Nir Matthews M.D. [id number] Triglyceride [Mass/Vol] 66 mg/dL Normal 30-150 [facility] Comment on above: Performed By: #### 4 6087 #### [facility] [address] [address] Nir Matthews M.D. [id number] ALCOHOL, MEDICALon 4 ALCOHOL MEDICAL < Normal <10.0 [facility] Comment on above: Result Comment: Alco hol cutoff: <10.00 mg/dL = None Detected Performed By: #### 4 8202 #### LAB [address] [address] Nir Matthews M.D. [id number] CBC WITH AUTO DIFFERENTIALon 02-13-2024 AUTO NRBC 0.0 % Normal [facility] Comment on above: Performed By: #### 4 6124 #### LAB [address] [address] Nir Matthews M.D. [id number] AUTO NRBC ABS COUNT 0.00 K/mcL Normal 0.00-0.00 [facility] Comment on above: Performed By: #### 4 6124 #### LAB [address] [address] Nir Matthews M.D. [id number] BASOPHILS ABSOLUTE COUNT 0.05 K/mcL Normal 0.00-0.30 [facility] Comment on above: Performed By: #### 4 6124 #### LAB [address] [address] Nir Matthews M.D. [id number] Basophils/100 WBC (Bld) 0.6 % Normal [facility] Comment on above: Performed By: #### 4 6124 #### LAB [address] [address] Nir Matthews M.D. [id number] Eosinophils (Bld) [#/Vol] 0.07 10*3/uL Normal 0.00-0.50 [facility] Comment on above: Performed By: #### 4 6124 #### LAB [address] [place] [address] Nir Matthews M.D. [id number] Eosinophils/100 WBC (Bld) 0.8 % Normal [facility] Comment on above: Performed By: #### 4 6157 #### LAB [address] [address] Nir Matthews M.D. [id number] Erythrocyte distribution width (RBC) [Ratio] 14.0 % Normal 11.6-14.8 [facility] Comment on above: Performed By: #### 4 6130 #### LAB [address] [address] Nir Matthews M.D. [id number] Hematocrit (Bld) [Volume fraction] 45.0 % Normal 41.0-53.0 [facility] Comment on above: Performed By: #### 4 6155 #### LAB [address] [address] Nir Matthews M.D. [id number] Hemoglobin (Bld) [Mass/Vol] 15.6 g/dL Normal 13.5-17.5 [facility] Comment on above: Performed By: #### 4 6198 #### LAB [address] [address] Nir Matthews M.D. [id number] IG ABSOLUTE 0.05 K/mcL Normal 0.00-0.30 [facility] Comment on above: Performed By: #### 4 6124 #### LAB [address] [address] Nir Matthews M.D. [id number] IG PERCENT 0.60 % Normal [facility] Comment on above: Result Comment: The IG parameter is the percentage of metamyelocytes, myelocytes and promyelocytes. An immature granulocyte count (IG) of 1% or more suggests the possibility of infection, an IG count of 3% is very likely related to an infection. Performed By: #### 4 6194 #### LAB [address] [address] Nir Matthews M.D. [id number] Lymphocytes (Bld) [#/Vol] 1.61 10*3/uL Normal 0.90-4.00 [facility] Comment on above: Performed By: #### 4 6151 #### LAB [address] [address] Nir Matthews M.D. [id number] Lymphocytes/100 WBC (Bld) 18.0 % Normal [facility] Comment on above: Performed By: #### 4 6167 #### LAB [address] [address] Nir Matthews M.D. [id number] MCH (RBC) [Entitic mass] 30.8 pg Normal 26.0-34.0 [facility] Comment on above: Performed By: #### 4 6124 #### LAB [address] [address] Nir Matthews M.D. [id number] MCV (RBC) [Entitic vol] 88.9 fL Normal 80.0-100.0 [facility] Comment on above: Performed By: #### 4 6124 #### LAB [address] [address] Nir Matthews M.D. [id number] MEAN CORPUSCULAR HEMOGLOBIN CONC 34.7 g/dL Normal 31.0-37.0 [facility] Comment on above: Performed By: #### 4 6124 #### LAB [address] [address] Nir Matthews M.D. [id number] Monocytes (Bld) [#/Vol] 1.04 10*3/uL High 0.30-0.90 [facility] Comment on above: Performed By: #### 4 6124 #### LAB [address] [address] Nir Matthews M.D. [id number] Monocytes/100 WBC (Bld) 11.6 % Normal [facility] Comment on above: Performed By: #### 4 6124 #### LAB [address] [address] Nir Matthews M.D. [id number] NEUTROPHILS ABSOLUTE COUNT 6.11 K/mcL Normal 1.70-7.00 [facility] Comment on above: Performed By: #### 4 6124 #### LAB [address] [address] Nir Matthews M.D. [id number] Neutrophils/100 WBC (Bld) 68.4 % Normal [facility] Comment on above: Performed By: #### 4 6124 #### LAB [address] [address] Nir Matthews M.D. [id number] Platelet mean volume (Bld) [Entitic vol] 8.8 fL Low 9.4-12.4 [facility] Comment on above: Performed By: #### 4 6124 #### LAB [address] [address] Nir Matthews M.D. [id number] Platelets (Bld) [#/Vol] 217 10*3/uL Normal 150-400 [facility] Comment on above: Performed By: #### 4 6124 #### LAB [address] [address] Nir Matthews M.D. [id number] RBC (Bld) [#/Vol] 5.06 10*6/uL Normal 4.50-5.90 [facility] Comment on above: Performed By: #### 4 6124 #### LAB [address] [address] Nir Matthews M.D. [id number] WBC (Bld) [#/Vol] 8.93 10*3/uL Normal 4.50-11.00 [facility] Comment on above: Performed By: #### 4 6124 #### LAB [address] [address] Nir Matthews M.D. [id number] COMPREHENSIVE METABOLIC PANE Vel 02-13-2024 Albumin [Mass/Vol] 4.7 g/dL Normal 3.2-5.2 [facility] Comment on above: Order Comment: [facility] has implemented the eGFR calculation approach that does not have a coefficient for race that conforms to the NKF-ASN Task Force Recommendations. Performed By: #### 4 8202 #### LAB [address] [address] Nir Matthews M.D. [id number] ALP [Catalytic activity/Vol] 141 U/L Normal 40-150 [facility] Comment on above: Order Comment: [facility] has implemented the eGFR calculation approach that does not have a coefficient for race that conforms to the NKF-ASN Task Force Recommendations. Performed By: #### 4 8202 #### LAB [address] [address] Nir Matthews M.D. [id number] ALT [Catalytic activity/Vol] 12 U/L Normal 0-50 U/L [facility] Comment on above: Order Comment: [facility] has implemented the eGFR calculation approach that does not have a coefficient for race that conforms to the NKF-ASN Task Force Recommendations. Performed By: #### 4 8202 #### LAB [address] [address] Nir Matthews M.D. [id number] Anion gap [Moles/Vol] 16 mmol/L Normal 10-20 [facility] Comment on above: Order Comment: [facility] has implemented the eGFR calculation approach that does not have a coefficient for race that conforms to the NKF-ASN Task Force Recommendations. Performed By: #### 4 8202 #### LAB [address] [address] Nir Matthews M.D. [id number] AST [Catalytic activity/Vol] 28 U/L Normal 0-50 U/L [facility] Comment on above: Order Comment: [facility] has implemented the eGFR calculation approach that does not have a coefficient for race that conforms to the NKF-ASN Task Force Recommendations. Result Comment: Slig htly Hemolyzed Performed By: #### 4 8202 #### LAB [address] [address] Nir Matthews M.D. [id number] Bilirubin [Mass/Vol] 0.4 mg/dL Normal 0.0-1.3 [facility] Comment on above: Order Comment: [facility] has implemented the eGFR calculation approach that does not have a coefficient for race that conforms to the NKF-ASN Task Force Recommendations. Performed By: #### 4 8202 #### LAB [address] [address] Nir Matthews M.D. [id number] Calcium [Mass/Vol] 9.6 mg/dL Normal 8.4-10.2 [facility] Comment on above: Order Comment: [facility] has implemented the eGFR calculation approach that does not have a coefficient for race that conforms to the NKF-ASN Task Force Recommendations. Performed By: #### 4 8202 #### LAB [address] [address] Nir Matthews M.D. [id number] Chloride [Moles/Vol] 94 mmol/L Low 98-108 [facility] Comment on above: Order Comment: [facility] has implemented the eGFR calculation approach that does not have a coefficient for race that conforms to the NKF-ASN Task Force Recommendations. Performed By: #### 4 8202 #### LAB [address] [address] Nir Matthews M.D. [id number] Creatinine [Mass/Vol] 0.83 mg/dL Normal 0.50-1.30 [facility] Comment on above: Order Comment: [facility] has implemented the eGFR calculation approach that does not have a coefficient for race that conforms to the NKF-ASN Task Force Recommendations. Performed By: #### 4 8202 #### LAB [address] [address] Nir Matthews M.D. [id number] EGFR 105 mL/min/1.73 m2 Normal >=60 [facility] Comment on above: Order Comment: [facility] has implemented the eGFR calculation approach that does not have a coefficient for race that conforms to the NKF-ASN Task Force Recommendations. Result Comment: Mady mated GFR was calculated using the 2020 CKD-EPI creatinine equation. Performed By: #### 4 8202 #### LAB [address] [address] Nir Matthews M.D. [id number] Glucose [Mass/Vol] 97 mg/dL Normal 65-99 [facility] Comment on above: Order Comment: [facility] has implemented the eGFR calculation approach that does not have a coefficient for race that conforms to the NKF-ASN Task Force Recommendations. Performed By: #### 4 [id number] #### LAB [address] [address] Nir Matthews M.D. [id number] HCO3 (Bld) [Moles/Vol] 24 mmol/L Normal 21-32 [facility] Comment on above: Order Comment: [facility] has implemented the eGFR calculation approach that does not have a coefficient for race that conforms to the NKF-ASN Task Force Recommendations. Performed By: #### 4 8202 #### LAB [address] [address] Nir Matthews M.D. [id number] Potassium [Moles/Vol] 4.3 mmol/L Normal 3.5-5.1 [facility] Comment on above: Order Comment: [facility] has implemented the eGFR calculation approach that does not have a coefficient for race that conforms to the NKF-ASN Task Force Recommendations. Result Comment: Slig htly Hemolyzed Performed By: #### 4 8202 #### LAB [address] [address] Nir Matthews M.D. [id number] Protein [Mass/Vol] 8.0 g/dL Normal 6.0-8.0 [facility] Comment on above: Order Comment: [facility] has implemented the eGFR calculation approach that does not have a coefficient for race that conforms to the NKF-ASN Task Force Recommendations. Performed By: #### 4 8202 #### LAB [address] [address] Nir Matthews M.D. [id number] Sodium [Moles/Vol] 130 mmol/L Low 135-145 [facility] Comment on above: Order Comment: [facility] has implemented the eGFR calculation approach that does not have a coefficient for race that conforms to the NKF-ASN Task Force Recommendations. Performed By: #### 4 8202 #### MH LAB [address] [address] Nir Matthews M.D. [id number] Urea nitrogen [Mass/Vol] 5 mg/dL Low 8-25 [facility] Comment on above: Order Comment: [facility] has implemented the eGFR calculation approach that does not have a coefficient for race that conforms to the NKF-ASN Task Force Recommendations. Performed By: #### 4 8202 #### MH LAB [address] [place], [place] [address] Nir Matthews M.D. [id number] Urea nitrogen/Creatinine [Mass ratio] 6.0 mg/mg Low 10.0-20.0 [facility] Comment on above: Order Comment: [facility] has implemented the eGFR calculation approach that does not have a coefficient for race that conforms to the NKF-ASN Task Force Recommendations. Performed By: #### 4 8202 #### LAB [address] [place], [place] [address] Nir Matthews M.D. [id number] CT HEAD OR BRAIN WITHOUT CON TRASTon 02-13-2024 CT HEAD OR BRAIN WITHOUT CONTRAST EXAMINATION: CT HEAD OR BRAIN WITHOUT CONTRAST HISTORY: ORDERING SYSTEM PROVIDED HISTORY: left sided weakness x1 week, TECHNOLOGIST PROVIDED HISTORY: Illness/Other Reason for exam: left sided weaknes x1 week Encounter Type: Initial Additional signs and symptoms: no ORDERING SYSTEM PROVIDED DIAGNOSIS CODES: R53.1 Left-sided weakness I63.9 Cerebrovascular accident (CVA), unspecified mechanism (HCC) COMPARISON: None. TECHNIQUE: CT examination of the head without IV contrast. Dose reduction techniques were achieved by using automated exposure control and/or adjustment of mA and/or kV according to patient size and/or use of iterative reconstruction technique. FINDINGS: 0.8 x 1.7 cm low-attenuating edema within the lentiform nucleus of the right basal ganglia, suggestive of subacute infarct. No significant mass effect. No hydrocephalus. No acute intracranial hemorrhage. Left maxillary sinus mucous retention cyst or polyp, measures 1.8 x 1.2 cm. Remaining paranasal sinuses are clear. Mastoids are clear. Calvarium is unremarkable. IMPRESSION: Suggestion of subacute infarct of the right basal ganglia. No significant mass effect. No acute intracranial hemorrhage. ST/ads Workstation ID: [id number] Dictated by: ROSEMARY MAHAJAN on SunFeb 13, 2024 11:24:23 AM EDT Transcribed by: BILLY STONE on SunFeb 13, 2024 11:34:14 AM EDT Finalized by: ROSEMARY MAHAJAN on SunFeb 13, 2024 9:36:48 PM EDT Normal [facility] Comment on above: Order Comment: Injur y/Trauma or Illness?:Illness/Other How long have you had these symptoms (acute/chronic)?:Acute Reason for exam?:left sided weaknes x1 week Type of Exam?:Initial Additional signs and symptoms?:no DRUGS OF ABUSE SCREEN, URINE on 02-13-2024 AMPHETAMINE SCREEN, URINE Not detected Normal None Detected [facility] Comment on above: Order Comment: Scree n results should be used for treatment purposes only. Result Comment: Urin e Amphetamine Cutoff: < 1000 ng/mL = None Detected Performed By: #### 4 [id number] #### LAB [address] [place] [address] Nir Matthews M.D. [id number] BARBITURATE SCREEN URINE Not detected Normal None Detected [facility] Comment on above: Order Comment: Scree n results should be used for treatment purposes only. Result Comment: Urin e Barbiturates Cutoff: < 200 ng/mL = None Detected Performed By: #### 4 [id number] #### LAB [address] [place] [address] Nir Matthews M.D. [id number] BENZODIAZEPINE SCREEN, URINE Not detected Normal None Detected [facility] Comment on above: Order Comment: Scree n results should be used for treatment purposes only. Result Comment: Urin e Benzodiazepine Cutoff: < 200 ng/mL = None Detected Performed By: #### 4 [id number] #### LAB [address] [place] [address] Nir Matthews M.D. [id number] BUPRENORPHINE, URINE Not detected Normal None Detected [facility] Comment on above: Order Comment: Scree n results should be used for treatment purposes only. Result Comment: Urin e Buprenorphine Cutoff: < 5 ng/mL = None Detected Performed By: #### 4 [id number] #### MH LAB [address] [place] [address] Nir Matthews M.D. [id number] CANNABINOID SCREEN URINE Not detected Normal [facility] Detected [facility] Comment on above: Order Comment: Scree n results should be used for treatment purposes only. Result Comment: Urin e Cannabinoids Cutoff: < 50 ng/mL = None Detected Performed By: #### 4 6983 #### LAB [address] [address] Nir Matthews M.D. [id number] COCAINE, SCREEN URINE Not detected Normal None Detected [facility] Comment on above: Order Comment: Scree n results should be used for treatment purposes only. Result Comment: Urin e Cocaine Cutoff: < 300 ng/mL = None Detected Performed By: #### 4 [id number] #### MH LAB [address] [place] [address] Nir Matthews M.D. [id number] FENTANYL, URINE Not detected Normal None Detected [facility] Comment on above: Order Comment: Scree n results should be used for treatment purposes only. Result Comment: Urin e Fentanyl Cutoff: < 1 ng/mL = None Detected Performed By: #### 4 [id number] #### MH LAB [address] [address] Nir Matthews M.D. [id number] METHADONE SCREEN, URINE Not detected Normal None Detected [facility] Comment on above: Order Comment: Scree n results should be used for treatment purposes only. Result Comment: Urin e Methadone Cutoff: < 300 ng/mL = None Detected Performed By: #### 4 [id number] #### MH LAB [address] [address] Nir Matthews M.D. [id number] OPIATE SCREEN URINE Not detected Normal [facility] Detected [facility] Comment on above: Order Comment: Scree n results should be used for treatment purposes only. Result Comment: Urin e Opiates Cutoff: < 300 ng/mL = None Detected Performed By: #### 4 [id number] #### MH LAB [address] [address] Nir Matthews M.D. [id number] OXYCODONE SCREEN, URINE Not detected Normal None Detected [facility] Comment on above: Order Comment: Scree n results should be used for treatment purposes only. Result Comment: Urin e Oxycodone Cutoff: < 100 ng/mL = None Detected Performed By: #### 4 6947 #### MH LAB [address] [address] Nir Matthews M.D. [id number] ED Prov Noteon 02-13-2024 ED Prov Note [facility] EMERGENCY [facility]PART[facility] ATTENDING NOTE: NAME: Angela Randle CSN: [id number] 53 y.o. PCP: No primary care provider on file. History: Chief Complaint: Weakness HPI: 53-year-old male former alcoholic last drink was about 7 to 8 months ago presents to the emergency department as a transfer from the [place] for evaluation of 1 weeks worth of left-sided weakness. No specific alleviating or aggravating factors. No recent travel and sick contacts antibiotic use. Patient denies having symptoms like this before. Patient denies drinking in recent past. Pt denies any other sx at si time. PMHx: History reviewed. No pertinent past medical history. PMSx: History reviewed. No pertinent surgical history. FAM. Hx: History reviewed. No pertinent family history. SOC. Hx: Social History Tobacco Use Smoking status: Every Day Current packs/day: 1.00 Types: Cigarettes Smokeless tobacco: Never Substance and Sexual Activity Alcohol use: Not Currently Comment: quit drinking 8 months ago Drug use: Never MEDs: No current outpatient medications on file prior to encounter. ALL: No Known Allergies Physical Exam: Patient Vitals for the past 24 hrs: BP Temp Temp src Pulse Resp SpO2 Height Weight 02/13/24 1059 -- 98.2 degrees F (36.8 degrees C) Oral -- -- -- -- -- 02/13/24 1048 (!) 174/98 -- -- 69 16 98 % 6' 3 77.1 kg (170 lb) Physical Exam Vitals and nursing note reviewed. Constitutional: General: He is awake. HENT: Head: Normocephalic and atraumatic. Nose: Nose normal. Mouth/Throat: Mouth: Mucous membranes are dry. Pharynx: Oropharynx is clear. Eyes: General: Lids are normal. No scleral icterus. Extraocular Movements: Extraocular movements intact. Pupils: Pupils are equal, round, and reactive to light. Cardiovascular: Rate and Rhythm: Normal rate and regular rhythm. Musculoskeletal: General: Normal range of motion. Pulmonary: Effort: Pulmonary effort is normal. No accessory muscle usage or respiratory distress. Abdominal: General: Abdomen is flat. Palpations: Abdomen is soft. Skin: General: Skin is warm. Capillary Refill: Capillary refill takes less than 2 seconds. Comments: No acute rash visualized on exposed skin Neurological: Mental Status: He is alert and oriented to person, place, and time. GCS: GCS eye subscore is 4. GCS verbal subscore is 5. GCS motor subscore is 6. Cranial Nerves: No dysarthria or facial asymmetry. Sensory: Sensation is intact. Motor: Motor function is intact. Coordination: Coordination is intact. NIH Scale: LOC: 0 - alert LOC Questions: 0 - answers both correctly LOC Commands: 0 - performs both correctly Best gaze: 0 - normal Vision: 0 - no visual loss Facial Palsy: 1 - minor (Left) Left arm: 1 - drift Right arm; 0 - no drift Left le - drift Right le - no drift Limb ataxia: 0 - absent Sensation: 0 - normal Best language: 0 - no aphasia Dysarthria: 0 - normal articulation Extinction and inattention: 0 - no neglect Stroke Scale: 3 Laboratory & Radiological Imaging (if done): Labs Reviewed COMPREHENSIVE METABOLIC PANEL - Abnormal; Notable for the following components: Result Value Sodium 130 (*) Chloride 94 (*) BUN 5 (*) BUN/Creatinine Ratio 6.0 (*) All other components within normal limits Narrative: [facility] has implemented the eGFR calculation approach that does not have a coefficient for race that conforms to the NKF-ASN Task Force Recommendations. CBC WITH AUTO DIFFERENTIAL - Abnormal; Notable for the following components: MPV 8.8 (*) Monocytes Abs 1.04 (*) All other components within normal limits ALCOHOL, MEDICAL - Normal CBC AND DIFFERENTIAL Narrative: The following orders were created for panel order CBC and Differential. Procedure Abnormality Status --------- ------ CBC Auto Differential[[id number]] Abnormal Final result Please view results for these tests on the individual orders. TROPONIN TROPONIN DRUGS OF ABUSE SCREEN, URINE CT Head Or Brain Without Contrast Preliminary Result Suggestion of subacute infarct of the right basal ganglia. No significant mass effect. No acute intracranial hemorrhage. Multiple attempts made to phone the results to the ED. Currently, no one is picking up the phone. [employer] Workstation ID: [id number] XR Chest 1 View (Results Pending) Procedures: ECG 12 Lead (Now) Date/Time: 02/13/2024 11:31 AM Performed by: Ra Duvall MD Authorized by: Ra Duvall MD Interpreted by ED attending physician Rhythm: sinus rhythm BPM: 60 normal DC interval normal QRS interval Comments: Normal [place] DC prolonged QRS not prolonged Qt<1/2 rr interval No STEMI Sinus rythmwith 1st degree av block ED Course / Medical Decision Making: I did personally review Angela's past medical history, surgical history, social history, as well as family histor (more content not included)... Normal [facility] MR BRAIN WITHOUT CONTRASTon 02-13-2024 MR BRAIN WITHOUT CONTRAST EXAMINATION: MR BRAIN WITHOUT CONTRAST HISTORY: ORDERING SYSTEM PROVIDED HISTORY: Neuro deficit, acute, stroke suspected, TECHNOLOGIST PROVIDED HISTORY: Illness/Other Reason for exam: slurred speech and left sided weakness for one week: Encounter Type: Unknown Additional signs and symptoms: n ORDERING SYSTEM PROVIDED DIAGNOSIS CODES: R53.1 Left-sided weakness I63.9 Cerebrovascular accident (CVA), unspecified mechanism (HCC) COMPARISON: CT head without contrast, 02/13/2024. TECHNIQUE: Multiplanar, multisequence MRI imaging of the brain without contrast. FINDINGS: There is a mucous retention cyst in the left maxillary sinus measuring 2 cm. No air-fluid levels in the paranasal sinuses. Middle ear cavities and mastoid air cells clear. Nasopharynx normal. [employer] Outseamer spaces normal. Orbital contents unremarkable. No hydrocephalus. No mass effect. No shift of midline. No extraaxial fluid collections. There is a chronic lacunar infarct centrally in the taisha measuring 7 mm. Abnormal signal and diffusion restriction involving the right basal ganglia and sparks radiata consistent with dwfwg-sr-hkjahwjz infarction measuring 1.4 cm. There is no mass effect. No hemorrhage. No masses. IMPRESSION: 1. Vuobs-fi-jhpxcnls infarction in the right basal ganglia and sparks radiata measuring 1.4 cm. No mass effect or hemorrhage. 2. Chronic lacunar infarction centrally in the taisha measures 7 mm. [email or web address] Workstation ID: [id number] Dictated by: KB LUIS on SunFeb 14, 2024 9:11:02 AM EDT Transcribed by: LUX ROMERO on SunFeb 14, 2024 9:18:58 AM EDT Finalized by: KB LUIS on SunFeb 14, 2024 11:52:47 AM EDT Normal [facility] Comment on above: Order Comment: [facility] has implemented the eGFR calculation approach that does not have a coefficient for race that conforms to the NKF-ASN Task Force Recommendations. TROPONINon 02-13-2024 TROPONIN T DELTA CHANGE INTERPRETATION No biomarker evidence of cardiac injury. Normal [facility] Comment on above: Performed By: #### 4 [id number] #### LAB [address] [address] Nir Matthews M.D. [id number] TROPONIN T DELTA DIFFERENCE < Normal < = -/+ 7 change [facility] Comment on above: Performed By: #### 4 6608 #### LAB [address] [address] Nir Matthews M.D. [id number] TROPONIN T NG/L < Normal <=22 [facility] Comment on above: Performed By: #### 4 6608 #### LAB [address] [address] Nir Matthews M.D. [id number] BASELINE TROPONIN T NG/L 7 ng/L Normal <=[address] [place] [address] Comment on above: Performed By: #### 4 [id number] #### LAB [address] [address] Nir Matthews M.D. [id number] TROPONIN T INTERPRETATION Normal Normal [facility] Comment on above: Performed By: #### 4 [id number] #### LAB [address] [address] Nir Matthews M.D. [id number] XR CHEST PA/APon 02-13-2024 XR CHEST PA/AP EXAMINATION: XR CHEST PA/AP 02/13/2024 11:36 am HISTORY: ORDERING SYSTEM PROVIDED HISTORY: Chest Pain, TECHNOLOGIST PROVIDED HISTORY: Illness/Other Reason for exam: Weakness Cancer History: u Surgery, RadiationHistory: u Encounter Type: Initial Additional signs and symptoms: Chest pain ORDERING SYSTEM PROVIDED DIAGNOSIS CODES: R53.1 Left-sided weakness I63.9 Cerebrovascular accident (CVA), unspecified mechanism (HCC) COMPARISON: None. FINDINGS: Normal cardiomediastinal contours. Normal pulmonary vasculature. No focal consolidation. No pleural effusion or pneumothorax. No acute osseous abnormality. IMPRESSION: No acute cardiopulmonary process. Workstation ID: [id number] Dictated by: ANEESH VICTORIA on SunFeb 13, 2024 11:58:04 AM EDT Transcribed by: ANEESH VICTORIA on SunFeb 13, 2024 11:58:04 AM EDT Finalized by: ANEESH VICTORIA on SunFeb 13, 2024 11:58:04 AM EDT Normal [facility] Comment on above: Order Comment: [facility] has implemented the eGFR calculation approach that does not have a coefficient for race that conforms to the NKF-ASN Task Force Recommendations. ALCOHOLon 02-27-2023 Ethanol [Mass/Vol] 13 mg/dL Abnormal [facility] Comment on above: Result Comment: FOR MEDICAL USE ONLY. . REF VALUES <10 Performed By: #### A LC #### [address] [id number] AMMONIAon 02-27-2023 Ammonia (P) [Moles/Vol] 36 umol/L Normal [facility] Comment on above: Result Comment: . REFERENCE VALUES DAY 1 to DAY 7 <110 DAY 8 to DAY 14 < 90 DAY 15 to ADULT 16-53 Performed By: #### A MM #### [address] [id number] BETA-HYDROXYBUTYRATEon 02-27 BETA-HYDROXYBUTYRAT E 3.73 mmol/L High 0.02 - 0.27 [facility] Comment on above: Result Comment: The beta-hydroxybutyrate test performance characteristics have been validated by [facility] laboratory. This test has not been approved by the FDA; however, such approval is not necessary. Performed By: #### B HB2 #### [address] [address] CBCon 02-27-2023 Erythrocyte distribution width (RBC) [Ratio] 12.1 % Normal 11.5 - 14.5 [facility] Comment on above: Order Comment: PLT C YOLIE RB TO PACO ORELLANA, 02/27/2023 12:08 Performed By: #### C BC #### [address] [place] [id number] Hematocrit (Bld) [Volume fraction] 36.4 % Low 41.0 - 52.0 [facility] Comment on above: Order Comment: PLT C ALLED RB TO PACO ORELLANA, 02/27/2023 12:08 Performed By: #### C BC #### [place] [address] Hemoglobin (Bld) [Mass/Vol] 13.1 g/dL Low 13.5 - 17.5 [facility] Comment on above: Order Comment: PLT C ALLED RB TO PACO ORELLANA, 02/27/2023 12:08 Performed By: #### C BC #### [place] [address] MCHC (RBC) [Mass/Vol] 36.0 g/dL Normal 32.0 - 36.0 [facility] Comment on above: Order Comment: PLT C ALLED RB TO PACO ORELLANA, 02/27/2023 12:08 Performed By: #### C BC #### [place] [address] MCV (RBC) [Entitic vol] 103 fL High 80 - 100 [facility] Comment on above: Order Comment: PLT C ALLED RB TO PACO ORELLANA, 02/27/2023 12:08 Performed By: #### C BC #### [address] [place] [id number] Platelets (Bld) [#/Vol] 40 10*3/uL Critically low 150 - 450 [facility] Comment on above: Order Comment: PLT C ALLED RB TO PACO ORELLANA, 02/27/2023 12:08 Result Comment: PLT CALLED RB TO PACO ORELLANA, 02/27/2023 12:08 Performed By: #### C BC #### [address] [id number] RBC 3.55 x10E12/L Low 4.50 - 5.90 [facility] Comment on above: Order Comment: PLT C ALLED RB TO PACO ORELLANA, 02/27/2023 12:08 Performed By: #### C BC #### [address] [address] WBC (Bld) [#/Vol] 7.0 10*3/uL Normal 4.4 - 11.3 [facility] Comment on above: Order Comment: PLT C ALLED RB TO PACO ORELLANA, 02/27/2023 12:08 Performed By: #### C BC #### [address] [id number] CHEST 1 VIEWon 02-27-2023 CHEST 1 VIEW Patient Name: AQUILES RANDLE STUDY: CHEST 1 VIEW; 02/27/2023 9:23 am INDICATION: weakness . COMPARISON: None. ACCESSION NUMBER(S): [id number] ORDERING CLINICIAN: HUGO TOLBERT FINDINGS: CARDIOMEDIASTINAL SILHOUETTE AND VASCULATURE: Cardiac size: Within normal limits. Aortic shadow: Within normal limits considering portable technique Mediastinal contours: Within normal limits considering portable technique Pulmonary vasculature: The central vasculature is unremarkable. LUNGS: Lungs are clear. ABDOMEN AND OTHER FINDINGS: No remarkable upper abdominal findings. BONES: No acute osseous changes. IMPRESSION: 1. No active cardiopulmonary disease. Electronically signed by: RHONA VENCES MD Normal [facility] COMPREHENSIVE PANELon 2022 Anion gap [Moles/Vol] 22 mmol/L High 10 - 20 [facility] Comment on above: Order Comment: PLT C ALLED RB TO PACO ORELLANA, 02/27/2023 12:08 Performed By: #### C BC #### [address] [id number] Potassium [Moles/Vol] 2.8 mmol/L Critically low 3.5 - 5.3 [facility] Comment on above: Order Comment: PLT C ALLED RB TO PACO ORELLANA, 02/27/2023 12:08 Result Comment: Conf irmed by repeat analysis K REPORTED TO PACO LILARS MARIA, 02/27/2023 10:11 Performed By: #### C BC #### [place] [id number] Sodium [Moles/Vol] 124 mmol/L Low 136 - 145 [facility] Comment on above: Order Comment: PLT C ALLED RB TO PACO TELMICHELLWICZ, 02/27/2023 12:08 Result Comment: Conf irmed by repeat analysis Performed By: #### C BC #### [address] [address] Albumin [Mass/Vol] 4.0 g/dL Normal 3.4 - 5.0 [facility] Comment on above: Order Comment: PLT C ALLED RB TO PACO TELMICHELLWICZ, 02/27/2023 12:08 Performed By: #### C BC #### [address] [address] ALP [Catalytic activity/Vol] 185 U/L High 33 - 120 [facility] Comment on above: Order Comment: PLT C ALLED RB TO PACO TELMARJORIECZ, 02/27/2023 12:08 Performed By: #### C BC #### [address] [address] ALT [Catalytic activity/Vol] 53 U/L High 10 - 52 [facility] Comment on above: Order Comment: PLT C ALLED RB TO PACO TELMARJORIECZ, 02/27/2023 12:08 Result Comment: Mae ents treated with Sulfasalazine may generate falsely decreased results for ALT. Performed By: #### C BC #### [address] [address] AST [Catalytic activity/Vol] 171 U/L High 9 - 39 [facility] Comment on above: Order Comment: PLT C ALLED RB TO PACO TELMICHELLWICZ, 02/27/2023 12:08 Performed By: #### C BC #### [address] [address] Bilirubin [Mass/Vol] 1.1 mg/dL Normal 0.0 - 1.2 [facility] Comment on above: Order Comment: PLT C ALLED RB TO PACO TELMICHELLWICZ, 02/27/2023 12:08 Performed By: #### C BC #### [address] [address] Calcium [Mass/Vol] 8.8 mg/dL Normal 8.6 - 10.3 [facility] Comment on above: Order Comment: PLT C ALLED RB TO PACO TELMARJORIECZ, 02/27/2023 12:08 Performed By: #### C BC #### [address] [address] Chloride [Moles/Vol] 81 mmol/L Low 98 - 107 [facility] Comment on above: Order Comment: PLT C ALLED RB TO PACO TELMICHELLWICZ, 02/27/2023 12:08 Performed By: #### C BC #### [address] [address] Creatinine [Mass/Vol] 0.45 mg/dL Low 0.50 - 1.30 [facility] Comment on above: Order Comment: PLT C ALLED RB TO PACO TELMARJORIECZ, 02/27/2023 12:08 Performed By: #### C BC #### [address] [address] eGFR MALE >90 Normal >90 [facility] Comment on above: Order Comment: PLT C ALLED RB TO PACO TELMARJORIECZ, 02/27/2023 12:08 Result Comment: CALC ULATIONS OF ESTIMATED GFR ARE PERFORMED USING THE 2020 CKD-EPI STUDY REFIT EQUATION WITHOUT THE RACE VARIABLE FOR THE IDMS-TRACEABLE CREATININE METHODS. https://jasn.asnjournals.org/content/early/ASN.24825087 88 Performed By: #### C BC #### [address] [address] Glucose [Mass/Vol] 77 mg/dL Normal 74 - 99 [facility] Comment on above: Order Comment: PLT C ALLED RB TO PACO TELMARJORIECZ, 02/27/2023 12:08 Performed By: #### C BC #### [address] [address] HCO3 (Bld) [Moles/Vol] 24 mmol/L Normal 21 - 32 [facility] Comment on above: Order Comment: PLT C ALLED RB TO PACO TELAKOWICZ, 02/27/2023 12:08 Performed By: #### C BC #### [place] [address] Protein [Mass/Vol] 7.2 g/dL Normal 6.4 - 8.2 [facility] Comment on above: Order Comment: PLT C ALLED RB TO PACO ORELLANA, 02/27/2023 12:08 Performed By: #### C BC #### [place] [id number] Urea nitrogen [Mass/Vol] 2 mg/dL Low 6 - 23 [facility] Comment on above: Order Comment: PLT C ALLED RB TO PACO ORELLANA, 02/27/2023 12:08 Performed By: #### C BC #### [place] [address] CORONAVIRUS 2019 BY PCRon Lab Specimen Source Nasal, Nasopharyngeal Normal [facility] Comment on above: Performed By: #### C OV19 #### [place] [address] SARS-CoV-2 (COVID-19) RNA TITO+probe Ql (Unsp spec) Not detected Normal Not Detected [facility] Comment on above: Result Comment: . This test has received FDA Emergency Use Authorization (EUA) and has been verified by [facility]. This test is only authorized for the duration of time that circumstances exist to justify the authorization of the emergency use of in vitro diagnostic tests for the detection of SARS-CoV-2 virus and/or diagnosis of COVID-19 infection under section 564(b)(1) of the Act, 21 U.S.C. 360bbb-3(b)(1), unless the authorization is terminated or revoked sooner. [facility] is certified under CLIA-88 as qualified to perform high complexity testing. Testing is performed in the [facility] laboratory located at [address] [place] [address]. SARS-CoV-2/Flu/RSV Multiplex Test: Fact sheet for providers: https://www.fda.gov/media/536295/download Fact sheet for patients: https://www.fda.gov/media/790763/download Performed By: #### C OV19 #### [address] [place] [address] Covid 19 Resultson 3 SARS-CoV-2 (COVID-19) RNA TITO+probe Ql (Unsp spec) NEGATIVE COVID-19 Test Coronaviruses are common world-wide and are the cause of many common colds. SARS-COV2 is a new coronavirus that began circulating worldwide in 2019 so we are calling it COVID-19. It has been estimated that four out of five patients with COVID-19 will recover at home without the need for medical attention. Symptoms of COVID-19 may include cough, fever, shortness of breath, loss of taste or smell and other flu-like symptoms including chills, sore muscles, sore throat, and headache. Severe illness is more common in older people and people with other health problems such as high blood pressure, obesity, and immune system problems. If the test is positive, you have COVID-19. You will be contacted by the ordering physicians office and instructed to remain on home isolation, in accordance with CDC guidelines. You may also be contacted by the [facility] to see if any of your close contacts may have been exposed to the virus and need to quarantine. If the test is negative, you likely do not have COVID-19 at this time, but you still may have a different illness that can spread to other people (like Influenza, or the Flu) and could still be at risk for getting COVID-19. We recommend that you stay away from other people to limit the spread of illness until your symptoms are improving and you are fever-free for 24 hours without the use of fever lowering medications such as acetaminophen or ibuprofen. No test is 100% accurate so if you are still concerned you may have COVID-19, talk to your doctor about the need to continue to stay away from others. Medicines Unless your provider told you not to use the following: Acetaminophen (Tylenol and others) is generally safe. Anti-inflammatory medications, such as Ibuprofen (Advil or Motrin) or Naproxen (Aleve) can also be used. Vffd-mdm-ngovvqa cough and cold medicines can be used according to the instructions on the package. Some ttmr-fma-wpoyxku medicines also contain acetaminophen. Make sure you are not taking more than your recommended dose. For those not hospitalized, there is no specific treatment available for this illness. Antibiotics do not treat Coronaviruses. Follow-Up Follow up with your doctor by scheduling a virtual visit or consider follow-up at one of our urgent care fever clinics. If you are having difficulty breathing, or are very weak and having difficulty standing, this is a medical emergency. Call 911 or have someone take you to the nearest emergency room immediately. If possible, wear a facemask. Additional guidance from the CDC for patients who tested POSITIVE for COVID-19 How to isolate: Isolate yourself in a specific room at home and limit your contact with others. Use a separate bathroom from other members of the household, when possible. Leave home only to get essential medical care. Do not go to work, school or public areas. Avoid using public transportation, ride-sharing, or taxis. Restrict contact with pets and other animals. If you must care for your pet or be around animals while you are sick, wash your hands before and after your interaction and wear a facemask. Make sure that shared spaces in the home have good airflow, such as by an air conditioner or an opened window, weather permitting. Personal Hygiene Procedures: Wear a face mask when in the same room as other people or pets. If a face mask interferes with your breathing, others should wear a mask when sharing space with you. Frequent hand-washing: wash your hands with soap and water for at least 20 seconds. If soap and water are not available, use alcohol-based hand traffic police officer. Avoid touching your eyes, nose, and mouth with unwashed hands. Household Hygiene Procedures: Avoid sharing personal household items such as dishes, glassware, cups, eating utensils, towels or bedding with other people or pets in your home. After use, these items should be washed with soap and hot water. Disinfect all high-touch surfaces every day with antibacterial cleaning solutions such as Lysol wipes, bleach, cleansers, etc. High-touch surfaces include tabletops, doorknobs, bathroom fixtures, toilets, phones, keyboards, tablets and bedside tables. Immediately clean any surfaces that may have blood, poop or body fluids on them, using antibacterial cleaning solutions such as Lysol wipes, bleach, cleansers, etc. If clothing or bedding come into contact with blood, poop or body fluids, they should be washed immediately. Follow the directions on the laundry detergent and clothing labels but hot water is recommended when possible. Stopping home isolation precautions: If possible, consult your doctor before stopping home isolation precautions. According to the CDC, you can discontinue home isolation precautions when you have met both of these criteria: Your fever and respiratory symptoms have been gone for 24 kalen (more content not included)... Normal [facility] DRUG SCREEN,URINEon 02-28-20 23 AMPHETAMINE SCREEN,U Negative Normal NEGATIVE [facility] Comment on above: Result Comment: CUTO FF LEVEL: 500 NG/ML Cross-reactivity has been reported with high concentrations of the following drugs: buproprion, chloroquine, chlorpromazine, ephedrine, mephentermine, fenfluramine, phentermine, phenylpropanolamine, pseudoephedrine, and propranolol. Performed By: #### D RUG3 #### [place] [address] BARBITURATES SCREEN,U Negative Normal NEGATIVE [facility] Comment on above: Result Comment: CUTO FF LEVEL: 200 NG/ML Performed By: #### D RUG3 #### [place] [address] BENZODIAZEPINES SCREEN,U Negative Normal NEGATIVE [facility] Comment on above: Result Comment: CUTO FF LEVEL: 200 NG/ML Performed By: #### D RUG3 #### [place] [address] CANNABINOIDS SCREEN,U Negative Normal NEGATIVE [facility] Comment on above: Result Comment: CUTO FF LEVEL: 50 NG/ML Performed By: #### D RUG3 #### [place] [address] COCAINE METABOLITE SCREEN,U Negative Normal NEGATIVE [facility] Comment on above: Result Comment: CUTO FF LEVEL: 150 NG/ML Performed By: #### D RUG3 #### [place] [address] DRUG SCREEN COMMENT SEE BELOW Normal [facility] Comment on above: Result Comment: Drug screen results are presumptive and should not be used to assess compliance with prescribed medication. Contact the performing [facility] laboratory to add-on definitive confirmatory testing if clinically indicated. . Toxicology screening results are reported qualitatively. The concentration must be greater than or equal to the cutoff to be reported as positive. The concentration at which the screening test can detect an individual drug or metabolite varies. The absence of expected drug(s) and/or drug metabolite(s) may indicate non-compliance, inappropriate timing of specimen collection relative to drug administration, poor drug absorption, diluted/adulterated urine, or limitations of testing. For medical purposes only; not valid for forensic use. . Interpretive questions should be directed to the laboratory medical directors. Performed By: #### D RUG3 #### [place] [address] FENTANYL SCREEN,URINE Negative Normal NEGATIVE [facility] Comment on above: Result Comment: CUTO FF LEVEL: 5 NG/ML Performed By: #### D RUG3 #### [place] [address] METHADONE SCREEN,U Negative Normal NEGATIVE [facility] Comment on above: Result Comment: CUTO FF LEVEL: 150 NG/ML The metabolite X-jxxqi-dpttuacgroziwb (LAAM) is not detected by this method in concentrations that would be found in the urine of patients on LAAM therapy. Performed By: #### D RUG3 #### [place] [address] OPIATES SCREEN,U Negative Normal NEGATIVE [facility] Comment on above: Result Comment: CUTO FF LEVEL: 300 NG/ML The opiate screen does not detect fentanyl, meperidine, or tramadol. Oxycodone is not consistently detected (refer to Oxycodone Screen, Urine result). Performed By: #### D RUG3 #### [place] [address] OXYCODONE SCREEN,U Negative Normal NEGATIVE [facility] Comment on above: Result Comment: CUTO FF LEVEL: 100 NG/ML This test will accurately detect both oxycodone and oxymorphone. Performed By: #### D RUG3 #### [place] [address] PCP SCREEN,U Negative Normal NEGATIVE [facility] Comment on above: Result Comment: CUTO FF LEVEL: 25 NG/ML Cross-reactivity has been reported with dextromethorphan. Performed By: #### D RUG3 #### [address] [address] LACTATEon 02-27-2023 Lactate [Moles/Vol] 2.0 mmol/L Normal 0.4 - 2.0 [facility] Comment on above: Result Comment: Ysabel puncture immediately after or during the administration of Metamizole may lead to falsely low results. Testing should be performed immediately prior to Metamizole dosing. Performed By: #### L ACT #### [address] [address] LIPASEon 02-27-2023 Lipase [Catalytic activity/Vol] 29 U/L Normal 9 - 82 [facility] Comment on above: Result Comment: Ysabel puncture immediately after or during the administration of Metamizole may lead to falsely low results. Testing should be performed immediately prior to Metamizole dosing. H-ujgmdm-l-benzoquinone imine (metabolite of Acetaminophen) will generate erroneously low results in samples for patients that have taken toxic doses of acetaminophen. Performed By: #### C BC #### [address] [address] MAGNESIUMon 02-27-2023 Magnesium [Mass/Vol] 1.88 mg/dL Normal 1.60 - 2.40 [facility] Comment on above: Performed By: #### C BC #### [address] [address] POTASSIUMon 02-27-2023 Potassium [Moles/Vol] 3.6 mmol/L Normal 3.5 - 5.3 [facility] Comment on above: Performed By: #### K #### [address] [address] PT/INRon 02-27-2023 PT Coag (PPP) [Time] 12.8 s Normal 9.8 - 12.8 [facility] Comment on above: Result Comment: Note new reference range as of 01/16/2023 at 10:00am. Performed By: #### C BC #### [address] [place] [address] PT, INR 1.1 Normal 0.9 - 1.1 [facility] Comment on above: Performed By: #### C #### [address] [address] Provider Note - ED v3on 08-0 Provider Note - ED v3 Provider Note: Results/Vital Signs Pediatric Clinical Scoring (ROD) is no recent ROD charted on this account Chart Review ED NOTES ED NOTES: Limitations to History: None HPI: 52-year-old male presents with concern for alcohol abuse. States over the past multiple months to maybe a year he has been abusing alcohol. States he drinks 15-20 beers a day. Concerned he is going to go into withdrawal. States that his mother spoke with [facility] who advised him to go to the emergency department. Denies any headache, vision change, neck pain, chest pain, shortness of breath, nausea, vomiting, abdominal pain, urinary symptoms. Additional History Obtained from: EMS Physical Exam: VS: As documented in the triage note and EMR flowsheet from this visit were reviewed. Appearance: Alert. cooperative, in no acute distress. Cachectic. Skin: Intact, dry skin, no lesions, rash, petechiae or purpura. Eyes: PERRLA, EOMs intact, Conjunctiva pink with no redness or exudates. HENT: Normocephalic, atraumatic. Nares patent. No intraoral lesions. Neck: Supple, without meningismus. Trachea at midline. No lymphadenopathy. Pulmonary: Clear bilaterally with good chest wall excursion. No rales, rhonchi or wheezing. No accessory muscle use or stridor. Cardiac: Regular rate and rhythm, no rubs, murmurs, or gallops. No JVD, Carotids without bruits. Abdomen: Abdomen is soft, nontender, and nondistended. No palpable organomegaly. No rebound or guarding. No CVA tenderness. Nonsurgical abdomen Genitourinary: Exam deferred. Musculoskeletal: Full range of motion. Pulses full and equal. No cyanosis, clubbing, or edema. Neurological: Cranial nerves are grossly intact, grossly normal sensation, no weakness, no focal findings identified. Psychiatric: Appropriate mood and affect. HISTORY OF PRESENTING ILLNESS AQUILES is a 52 year old Male and was seen by me at 27-Feb-2023 09:03 for a chief complaint of weakness (to er per [facility] ems with wanting help to quit drinking. states he's been drinking heavier than normal the last 2-3 months, states he hasn't been eating in 7-9 weeks. c/o pain all over. last drink was last pm at 2130)(1). Triage Information: Most recent Vital Sign Value Date Temp (F): 99.6 02-27-2023 09:09 Temp (C): 37.5 02-27-2023 09:09 Heart Rate (beats/min): 107 02-27-2023 09:09 Respirations (breaths/min): 18 02-27-2023 09:09 SpO2 (%): 97 02-27-2023 09:09 BP Systolic (mm Hg): 124 02-27-2023 09:09 BP Diastolic (mm Hg): 89 02-27-2023 09:09 PAST MEDICAL HISTORY ALLERGIES/INTOLERANCES: No Known Allergies HEALTH HISTORY: No documented data. OUTPATIENT MEDICATIONS: Home Medications Review Status for Reconciliation: N/A Med Status: N/A No documented data. SIGNIFICANT EVENTS: No documented data. CRITICAL CARE RESULTS: Recent Lab Results: I have reviewed these laboratory results: Complete Blood Count 27-Feb-2023 11:20:00 ResultValue Lab Comment: PLT CALLED RB TO PACO ORELLANA, 02/27/2023 12:08 White Blood Cell Count 7.0 Red Blood Cell Count 3.55 L HGB 13.1 L HCT 36.4 L MCV 103 H MCHC 36.0 PLT 40 LL RDW-CV 12.1 PT + INR, Plasma 27-Feb-2023 11:19:00 ResultValue Prothrombin Time, Plasma 12.8 International Normalized Ratio, Plasma 1.1 Beta Hydroxybutyrate, Serum 27-Feb-2023 11:19:00 ResultValue Beta Hydroxybutyrate, Serum 3.73 H Magnesium, Serum 27-Feb-2023 11:19:00 ResultValue Magnesium, Serum 1.88 Ethanol Level 27-Feb-2023 11:19:00 ResultValue Ethanol Level 13 A Drug Screen, Urine 27-Feb-2023 09:40:00 ResultValue Comments. SEE BELOW Drug screen results are presumptive and should not be used to assess compliance with prescribed medication. Contact the performing [facility] laboratory to add-on definitive confirmatory testing if clinically indicated. .Toxicology scre Amphetamine Screen, Urine PRESUMPTIVE NEGATIVE CUTOFF LEVEL: 500 NG/ML Cross-reactivity has been reported with high concentrations of the following drugs: buproprion, chloroquine, chlorpromazine, ephedrine, mephentermine, fenfluramine, phentermine, phenylpropanolamine Barbiturate Screen, Urine PRESUMPTIVE NEGATIVE PRESUMPTIVE NEGATIVE CUTOFF LEVEL: 200 NG/ML Benzodiazepine Screen, Urine PRESUMPTIVE NEGATIVE PRESUMPTIVE NEGATIVE CUTOFF LEVEL: 200 NG/ML Cannabinoid Screen, Urine PRESUMPTIVE NEGATIVE PRESUMPTIVE NEGATIVE CUTOFF LEVEL: 50 NG/ML Cocaine Metabolite Screen, Urine PRESUMPTIVE NEGATIVE PRESUMPTIVE NEGATIVE CUTOFF LEVEL: 150 NG/ML Fentanyl Screen, Urine PRESUMPTIVE NEGATIVE PRESUMPTIVE NEGATIVE CUTOFF LEVEL: 5 NG/ML Methadone Screen, Urine PRESUMPTIVE NEGATIVE CUTOFF LEVEL: 150 NG/ML The metabolite A-qmeel-bjdkmmkoansaxm (LAAM) is not detected by this method in conc (more content not included)... Normal [facility] Risk Screen - Adult Emergenc n 02-27-2023 Risk Screen - Adult Emergency Preferred Language: Preferred Language: Preferred Language for Discussing Health Care (patient/designee)Kendrick morrissey Patient Preferred Pharmacy: Patient Preferred Pharmacy Statement: I have reviewed and updated the patient's preferred pharmacy selection for today's visit. Advanced Directives: Advance Directive/DNRno Family Violence Adult: Abuse Screen: Are you or have you been threatened or abused physically, emotionally, or sexually by anyoneno Learning Assessment (Patient): Learning Assessment (Patient): Patient is Able to be Assessed for Learningyes Factors Influencing Readiness to Learnn/a Factors that Impact Ability to Learnnone Devices/Methods Used to Communicatenone Learning Preferencesverbal instruction Cultural Considerationsnone Developmental Considerationsnone Samaritan Considerationsnone Learning Assessment (Other Learner): Learning Assessment (Other Learner): Other learner availableno Pressure Injury/TB/Substance: Pressure Injury: Do you have a coughno Smoking Statusmoderate user (uses 11-30 cig/day, OR 0.5-1.5 ppd, OR 2-3 cans/pouches loose leaf tobacco per week, OR 0.5-1.5 vape pods per day) Tobacco Cessation Education (provide if tobacco use within the last 12 mos) patient declined Alcohol Usehistory of abuse Drug Usedenies Admission Risk Screen: Significant IndicatorsComplete CAGE: CAGE: Is this an injured patient at a Trauma Center ([facility]/[place]): no Electronic Signatures: Paco Orellana (RN) (Signed 27-Feb-2023 09:16) Authored: Preferred Language, Patient Preferred Pharmacy, Advanced Directives, Family Violence Adult, Learning Assessment (Patient), Learning Assessment (Other Learner), Pressure Injury/TB/Substance, Pressure Injury, CAGE Last Updated: 27-Feb-2023 09:16 by Paco Orellana (RN) [facility] Triage - EDon 02-27-2023 Triage - ED Chart Review: PRIMARY ASSESSMENT ABCD Normal Findings: airway open and patent and alert and oriented ARRIVAL INFORMATION Means of Arrival: stretcher Mode of Arrival: ambulance Agency: [facility] Agency Name: [facility] Arrival From: home Accompanied By: self Language: Spoken Language Preferred: Belizean Reading Language Preferred: Belizean Present on Arrival: Device Present on Arrival to ED: no CHIEF COMPLAINT AQUILES RANDLE is a Male patient with a chief complaint of weakness (to er per [facility] with wanting help to quit drinking. states he's been drinking heavier than normal the last 2-3 months, states he hasn't been eating in 7-9 weeks. c/o pain all over. last drink was last pm at 2130). Triage Date/Time: 27-Feb-2023 08:57 DEBORA: 3 Pain Rating (0-10): 8 = Severe Pain location: knees Vital Signs: Temperature: 99.6F ( 37.5C) taken temporal Blood Pressure: 124/89 Mean: Heart Rate: 107 Respiratory Rate: 18 Pulse Oximetry: 97% on room air, no respiratory support. Height: 6 feet 2.00 inches. 187.9 CM Weight: 119.0 pounds. Calculated 54.0 kg. (stated) Calculated BMI (kg/m2): 15.294 Calculated BSA (m2) 1.68 [place] Coma Scale: Best Eye Response: (E4) spontaneous Best Motor Response: (M6) obeys commands Best Verbal Response: (V5) oriented Goldy Score: 15 Allergies: no Patient has homicidal thoughts: no Symptom Notes: . Symptoms Are POSITIVE For: dehydration and weakness. Last Known Well: unknown Risk Screens Suicide Risk Screen In the Past Month: Have you wished you were or wished you could go to sleep and not wake up no In the Past Month: Have you had any actual thoughts of killing yourself no In Your Lifetime: Have you ever done anything, started to do anything, or prepared to do anything to end your life no Gonzalez Fall Scale Screening Has the patient fallen before (or is the patient in the ED as a result of a fall) has not had a fall Does the patient have an impaired gait does not have impaired gait Is the patient cognitively impaired not cognitively impaired Interventions: Gonzalez Fall Interventions: LOW INTERVENTIONS: *patient oriented to surroundings and call system, * patient/family falls education completed and documented, *patients fall status communicated during bedside handoff, *whiteboard updated, *mode of toileting discussed with patient, *bed in low position with brakes locked, *call light in reach, * non-skid footwear TRAVEL HISTORY Travel History Coronavirus Screening: no exposure or symptoms Travel Exposure History: NO travel to International locations in the past 30 days PAIN Pain Scale Used: MEAGAN Pain Rating (0-10): 8 = Severe Past Medical History: Past Medical History Reviewedyes Electronic Signatures: Paco Orellana (SHANAE) (Signed 27-Feb-2023 09:15) Authored: Quick Triage, Risk Screens, Pain, Arrival, ABCD, Travel History, Chart Review, Scores, Past Medical History Last Updated: 27-Feb-2023 09:15 by Paco Orellana) [facility] VENOUS BLOOD GASon 3 BASE EXCESS-BLOOD 8.1 mmol/L High -2.0 - 3.0 [facility] Comment on above: Performed By: #### B LGV2 #### [place] [address] BICARB, CALCULATED 29.1 mmol/L High 22.0 - 26.0 [facility] Comment on above: Performed By: #### B LGV2 #### [place] [address] FIO2 21 % Normal [facility] Comment on above: Performed By: #### B LGV2 #### [place] [address] OXY HGB 33.6 % Low 45.0 - 75.0 [facility] Comment on above: Performed By: #### B LGV2 #### [place] [address] Oxygen (Bld) [Partial pressure] 20 mm[Hg] Low 35 - 45 [facility] Comment on above: Performed By: #### B LGV2 #### [place] [address] PATIENT TEMPERATURE 37.0 degrees C Normal [facility] Comment on above: Result Comment: NOTE : PATIENT RESULTS ARE NOT CORRECTED FOR TEMPERATURE. Performed By: #### B LGV2 #### [place] [address] PCO2 29 mmHg Low 41 - 51 [facility] Comment on above: Performed By: #### B LGV2 #### [place] [address] pH (Bld) 7.61 [pH] Critically high 7.33 - 7.[address] [facility] Comment on above: Performed By: #### B LGV2 #### [place] [address] SO2 40 % Low 45 - 75 [facility] Comment on above: Performed By: #### B LGV2 #### [place] [address] .GFRon 07-14-2020 GFR Non- >60 Normal [facility] ([place]) Comment on above: Result Comment: GFR Population mean for , Non- Americans Ages 20-29 = 116 mL/min/1.73 sq.m. Ages 30-39 = 107 mL/min/1.73 sq.m. Ages 40-49 = 99 mL/min/1.73 sq.m. Ages 50-59 = 93 mL/min/1.73 sq.m. Ages 60-69 = 85 mL/min/1.73 sq.m. Ages 70+ = 75 mL/min/1.73 sq.m. Chronic Kidney Disease: Less than 60 mL/min/1.73 square meters End Stage Renal Disease: Less than 15 mL/min/1.73 square meters Performed By: #### Sharifa MCKOY, CMP #### [address] [address] GFR >60 Normal [facility] ([place]) Comment on above: Result Comment: GFR Population mean for , Non- Americans Ages 20-29 = 116 mL/min/1.73 sq.m. Ages 30-39 = 107 mL/min/1.73 sq.m. Ages 40-49 = 99 mL/min/1.73 sq.m. Ages 50-59 = 93 mL/min/1.73 sq.m. Ages 60-69 = 85 mL/min/1.73 sq.m. Ages 70+ = 75 mL/min/1.73 sq.m. Chronic Kidney Disease: Less than 60 mL/min/1.73 square meters End Stage Renal Disease: Less than 15 mL/min/1.73 square meters Performed By: #### Sharifa MCKOY, CMP #### [address] [address] [facility] 07-14-2020 Albumin [Mass/Vol] 4.2 G/dL Normal 3.2-4.8 [facility] ([place]) Comment on above: Performed By: #### Sharifa MCKOY, CMP #### [address] [address] Albumin/Globulin [Mass ratio] 1.4 {ratio} Normal 0.9-1.6 [facility] ([place]) Comment on above: Performed By: #### Sharifa MCKOY, CMP #### [address] [address] ALP [Catalytic activity/Vol] 94 U/L Normal 38-126 [facility] ([place]) Comment on above: Performed By: #### G FR, CMP #### [address] [address] ALT [Catalytic activity/Vol] 240 U/L High 12-55 [facility] ([place]) Comment on above: Performed By: #### G FR, CMP #### [address] [address] AST [Catalytic activity/Vol] 283 U/L High 8-34 [facility] ([place]) Comment on above: Performed By: #### G , CMP #### [place] [id number] Bili Total 0.70 mg/dL Normal 0.20-1.20 [facility] ([place]) Comment on above: Result Comment: Use of this assay is not recommended for patients undergoing treatment with eltrombopag due to the potential for falsely elevated results. Performed By: #### G FR, CMP #### [address] [address] Calcium [Mass/Vol] 10.4 mg/dL Normal 8.7-10.4 [facility] ([place]) Comment on above: Result Comment: No te - New Reference Range in effect 20 Performed By: #### G FR, CMP #### [address] [address] Chloride [Moles/Vol] 97 mmol/L Low 98-110 [facility] ([place]) Comment on above: Performed By: #### G FR, CMP #### [address] [address] CO2 [Moles/Vol] 27 mmol/L Normal 22-32 [facility] ([place]) Comment on above: Performed By: #### G FR, CMP #### [address] [address] Creatinine [Mass/Vol] 0.55 mg/dL Low 0.60-1.40 [facility] ([place]) Comment on above: Performed By: #### Sharifa MCKOY, CMP #### [address] [address] Electrolyte Balance 5.0 mEq/L Normal 4.0-15.0 [facility] ([place]) Comment on above: Performed By: #### G , CMP #### [address] [address] Globulin (S) [Mass/Vol] 3.1 G/dL Normal 1.5-3.8 [facility] ([place]) Comment on above: Performed By: #### Sharifa MCKOY, CMP #### [address] [address] Glucose [Mass/Vol] 97 mg/dL Normal 70-110 [facility] ([place]) Comment on above: Performed By: #### Sharifa MCKOY, CMP #### [address] [address] Potassium [Moles/Vol] 4.1 mmol/L Normal 3.5-5.0 [facility] ([place]) Comment on above: Performed By: #### Sharifa MCKOY, CMP #### [address] [address] Protein [Mass/Vol] 7.3 G/dL Normal 5.7-8.2 [facility] ([place]) Comment on above: Result Comment: No te - New Reference Range in effect 20 Performed By: #### Sharifa MCKOY, CMP #### [address] [address] Sodium [Moles/Vol] 129 mmol/L Low 136-145 [facility] ([place]) Comment on above: Performed By: #### G FR, CMP #### [address] [address] Urea nitrogen [Mass/Vol] 7.0 mg/dL Low 8.0-22.0 [facility] ([place]) Comment on above: Performed By: #### G FR, CMP #### [address] [address] Urea nitrogen/Creatinine [Mass ratio] 12.7 ratio Normal 10.0-22.0 [facility] ([place]) Comment on above: Performed By: #### G , [facility] #### [place] [address] Vital Signs Date Time Vital Sign Value Performing Clinician Facility 11-10-2024 14:26-0400 Body height 190.5 cm Tamica Busch MD Work Phone: [facility] 11-10-2024 14:26-0400 Body mass index (BMI) [Ratio] 21.87 kg/m2 Tamica Busch MD Work Phone: [facility] 11-10-2024 14:26-0400 Body weight 79.38 kg Tamica Busch MD Work Phone: [facility] 11-10-2024 14:26-0400 Diastolic blood pressure 87 mm[Hg] Tamica Busch MD Work Phone: [facility] 11-10-2024 14:26-0400 Heart rate 88 /min Tamica Busch MD Work Phone: [facility] 11-10-2024 14:26-0400 Systolic blood pressure 125 mm[Hg] Tamica Busch MD Work Phone: [facility] 10-08-2024 08:38-0400 Body height 190.5 cm Urbano Carpenter MD Work Phone: [facility] 10-08-2024 08:38-0400 Body mass index (BMI) [Ratio] 21.75 kg/m2 Urbano Carpenter MD Work Phone: [facility] 10-08-2024 08:38-0400 Body temperature 97.11 [degF] Urbano Carpenter MD Work Phone: [facility] 10-08-2024 08:38-0400 Body weight 78.93 kg Urbano Carpenter MD Work Phone: [facility] 10-08-2024 08:38-0400 Diastolic blood pressure 88 mm[Hg] Urbano Carpenter MD Work Phone: [facility] 10-08-2024 08:38-0400 Heart rate 86 /min Urbano Carpenter MD Work Phone: [facility] 10-08-2024 08:38-0400 Respiratory rate 16 /min Urbano Carpenter MD Work Phone: [facility] 10-08-2024 08:38-0400 SaO2% (BldA) [Mass fraction] 98 % Urbano Carpenter MD Work Phone: [facility] 10-08-2024 08:38-0400 Systolic blood pressure 150 mm[Hg] Urbano Carpenter MD Work Phone: [facility] 08-06-2024 13:15-0500 Body height 190.5 cm [facility] 08-06-2024 13:15-0500 Body mass index (BMI) [Ratio] 20.9 kg/m2 [facility] 08-06-2024 13:15-0500 Body weight 76.2 kg [facility] 08-06-2024 13:15-0500 Diastolic blood pressure 76 mm[Hg] [facility] 08-06-2024 13:15-0500 Heart rate 73 /min [facility] 08-06-2024 13:15-0500 Respiratory rate 16 /min [facility] 08-06-2024 13:15-0500 Systolic blood pressure 124 mm[Hg] [facility] 08-31-2023 09:06-0500 Body temperature 97.8 [degF] Dr. Israel Proctor Work Phone: [facility] 08-31-2023 09:06-0500 Diastolic blood pressure 71 mm[Hg] Dr. Israel Proctor Work Phone: [facility] 08-31-2023 09:06-0500 Heart rate 94 /min Dr. Israel Proctor Work Phone: [facility] 08-31-2023 09:06-0500 Respiratory rate 18 /min Dr. Israel Proctor Work Phone: [facility] 08-31-2023 09:06-0500 SaO2% (BldA) [Mass fraction] 96 % Dr. Israel Proctor Work Phone: [facility] 08-31-2023 09:06-0500 Systolic blood pressure 92 mm[Hg] Dr. Israel Proctor Work Phone: [facility] 08-31-2023 09:00-0500 Inhaled oxygen flow rate 2 L/min Dr. Israel Proctor Work Phone: [facility] 08-31-2023 07:22-0500 Body height 190.[address] Israel Proctor Work Phone: [facility] 08-31-2023 07:22-0500 Body mass index (BMI) [Ratio] 20.9 kg/m2 Dr. Israel Proctor Work Phone: [facility] 08-31-2023 07:22-0500 Body weight 75.[address] Israel Proctor Work Phone: [facility] 08-16-2023 10:07-0500 Body mass index (BMI) [Ratio] 21.6 kg/m2 Dr. Israel Proctor Work Phone: [facility] 08-16-2023 10:07-0500 Body weight 78.[address] Israel Proctor Work Phone: [facility] 08-16-2023 10:07-0500 Diastolic blood pressure 91 mm[Hg] Dr. Israel Proctor Work Phone: [facility] 08-16-2023 10:07-0500 Respiratory rate 16 /min Dr. Israel Proctor Work Phone: [facility] 08-16-2023 10:07-0500 Systolic blood pressure 149 mm[Hg] Dr. Israel Proctor Work Phone: [facility] Encounters Encounter Date Encounter Type Care Provider Facility Start: 03-06-2025 ambulatory CAROLINA Russ y:[facility] Start: 11-17-2024 End: 11-17-2024 Subsequent hospital visit by physician Rad External Film EF RAD EXTERNAL FILM VIRTUAL Comment on above: Arrived Start: 11-17-2024 End: 11-17-2024 ambulatory TAMICA BUSCH [facility] Start: 11-13-2024 End: 11-13-2024 Office outpatient visit 15 minutes Urbano Carpenter MD Work Phone: [facility] Comment on above: PFO (patent foramen ovale) ([facility]) (Primary Dx) Start: 11-13-2024 End: 11-13-[address] [facility] Start: 11-10-2024 End: 11-10-2024 Office outpatient new 60 minutes Tamica Busch MD Work Phone: [facility] Comment on above: History of stroke (P rimary Dx); PFO (patent foramen ovale) ([facility]) Start: 11-10-2024 End: 11-10-2024 ambulatory TAMICA BUSCH [facility] Start: 10-08-2024 End: 10-08-2024 Office outpatient new 45 minutes Urbano Carpenter MD Work Phone: [facility] Comment on above: PFO (patent foramen ovale) ([facility]-H[facility]) (Primary Dx); HTN (hypertension); Smoker Start: 10-08-2024 End: 10-08-[address] [facility] Start: 09-24-2024 Non-patient / Non-visit Dr. Erick Logan MD -[facility] Start: 09-24-2024 End: 09-24-[address] Aftab Cabrales MD -[facility] Work Phone: Start: 09-24-2024 End: 09-24-2024 ambulatory [facility] Work Phone: Start: 08-22-2024 Non-patient / Non-visit Dr. Erick Logan MD -[facility] Start: 08-22-2024 End: 08-22-[address] Aftab Cabrales MD -[facility] Work Phone: Start: 08-22-2024 End: 08-22-2024 ambulatory [facility] Facility:[facility] Start: 08-06-2024 End: 08-06-[address] Aftab Cabrales MD -[facility] Work Phone: Start: 08-06-2024 End: 08-06-2024 ambulatory [facility] Facility:[facility] Start: 05-22-2024 ambulatory Aftab Cabrales Facility:[facility] Start: 05-22-2024 End: 05-22-2024 [facility] Start: 05-06-2024 ambulatory Aftab Gilesori Facility:[facility] Start: 05-06-2024 End: 05-06-2024 ambulatory CAROLINA SINGH Facility:[facility] Start: 02-27-2024 End: 03-02-2024 ambulatory [facility] Start: 02-13-2024 End: 02-15-2024 Evaluation and management of inpatient [facility] Start: 08-31-2023 Non-patient / Non-visit Dr. Israel Proctor Work Phone: [facility] Start: 08-31-2023 End: 08-31-2023 Admission to same day surgery center Dr. Israel Proctor Work Phone: [facility] Work Phone: Start: 08-31-2023 End: 08-31-[address] Israel Proctor Work Phone: [facility] Work Phone: Start: 08-16-2023 End: 08-16-[address] Israel Proctor Work Phone: [facility] Work Phone: Start: 02-27-2023 End: 02-28-2023 Emergency department patient visit Maverick Martin Facility:[id number] Procedures Date Procedure Procedure Detail Performing Clinician Start: 11-17-2024 End: 11-17-2024 Study Interpretation of outside study Tamica Busch MD Work Phone: Start: 08-06-2024 Evaluation of diagno stic study results [facility] Start: 08-31-2023 End: 08-31-[address] Israel duong Work Phone: Plan of Treatment Date Care Activity Detail Author Start: 08-31-2033 Screening for malignant neoplasm of colon [facility] Start: 04-09-2028 DTaP/Tdap/Td Vaccines (2 - Td or Tdap) DTaP/Tdap/Td Vaccines (2 - Td or Tdap) [facility] Start: 03-30-2025 Influenza vaccination Influenza Vaccine (Season Ended) [facility] Start: 11-13-2024 End: 11-13-2024 Telemedicine consultation with patient 11/13/2024 8:00 AM EDT Telemedicine [facility] [address] [place] [address] [place] [address] [place] [address] [facility] Start: 03-30-2024 COVID-19 Vaccine ( season) COVID-19 Vaccine ( season) [facility] Start: 03-30-2024 Influenza vaccination Influenza Vaccine (#1) [facility] Start: 08-31-2023 Patient discharge [facility] Start: 2021 Zoster Vaccines (1 of 2) Zoster Vaccines (1 of 2) [facility] Start: 1990 Hepatitis B Vaccines (1 of 3 - 19+ 3-dose series) Hepatitis B Vaccines (1 of 3 - 19+ 3-dose series) [facility] Start: 1990 Pneumococcal vaccination Pneumococcal Vaccine (1 of 2 - PCV) [facility] Start: 1989 Hepatitis C screening Hepatitis C Screening [facility] Start: 1972 MMR Vaccines (1 of 1 - Standard series) MMR Vaccines (1 of 1 - Standard series) [facility] Start: 1971 HIV screening HIV Screening [facility] Start: 1971 Lipid panel Lipid Panel [facility] Start: 1971 Screening for malignant neoplasm of colon [facility] Start: 1971 Yearly Adult Physical Yearly Adult Physical [facility] Colonoscopy [facility] Patient referral [facility] Work Phone: Immunizations Immunization Date Immunization Notes Care Provider Fara alaniz 04-09-2018 tetanus toxoid, reduced diphtheria toxoid, and acellular pertussis vaccine, adsorbed Dr. Israel Proctor Work Phone: [facility] Payers Date Payer Category Payer Unknown [id number] 2024 Self-pay [id number] 2024 Self-pay [id number] 2011 [employer] [id number] 2011 Unknown [id number] 1971 Unknown [id number] 1971 Unknown [id number] [id number] 1971 Unknown [id number] [id number] 1971 Unknown [id number] [id number] 1971 Unknown [id number] [id number] 1971 Unknown [id number] [id number] 1971 Unknown [id number] [id number] 1971 Unknown [id number] [id number] 1971 Unknown [id number] [id number] Unknown [id number] [id number] Unknown [id number] [id number] Unknown [id number] [id number] Unknown [id number] [id number] Unknown [id number] [id number] Unknown [id number] [id number] Unknown [id number] [id number] Unknown [id number] [id number] Unknown [id number] [id number] Unknown [id number] Social History Date Type Detail Facility Start: 08-29-2023 Tobacco smoking status VAIS Unknown if ever smoked [facility] Start: 1970 Sex Assigned At Male [facility] Start: 08-29-2023 End: 10-08-2024 Tobacco smoking status VAIS Smokes tobacco daily [facility] Work Phone: History of tobacco use Cigarette Smoker [facility] Work Phone: Start: 10-08-2024 Tobacco use and exposure Smokeless tobacco non-user [facility] Work Phone: Start: 10-08-2024 End: 11-10-2024 Alcoholic beverage intake Ex-drinker (finding) [facility] Work Phone: Start: 10-08-2024 End: 11-10-2024 History of Social function [facility] Work Phone: Start: 10-08-2024 End: 11-10-2024 Tobacco use panel [facility] Work Phone: Start: 1970 Sex assigned at Not on file [facility] Work Phone: Start: 09-04-2024 Sexual orientation Heterosexual (finding) [facility] Start: 09-28-2024 End: 11-10-2024 Exposure to SARS-CoV-2 (event) Not sure [facility] Start: 10-05-2024 Sex Male (finding) [facility] Goals Date Patient Goal Desired Activity /State Mental Status Date Assessment Result Facility 08-31-2023 Cognitive function Voice/Name [facility] Work Phone: Clinical Notes 08-31-2023 to 11-13-2024 Urbano Carpenter MD - 11/13/2024 8:00 AM Diamante Santiago MD - 11/10/2024 2:30 PM EDTPatient InstructionsStviv Carpenter MD - 10/08/2024 9:00 AM EDT Note Date & Type Note Facility 11-13-2024 History of Present illness Narrative Images from the original note were not included. Virtual visit : Total time spent 61 minutes including chart preparation with 35 minutes spent face to face Cardio: Dr. Richardson at [facility] From chart review: Aquiles Rodriguez is a 54-year-old male smoker with hypertension and mild dyslipidemia who was admitted to the hospital with left-sided weakness and gait instability in January 2024. CT of the head was unremarkable but brain MRI demonstrated a subacute right basal ganglier infarct. Patient underwent both a surface echo as well as a transesophageal echo which demonstrated a moderate-sized PFO with normal LV systolic function. He was seen in consultation by neurology at [facility]. He was recommended for DAPT for 21 days followed by aspirin for life and atorvastatin 40 mg for stroke risk reduction. He was counseled regarding cigarette smoking cessation. He was discharged home on a 30-day event monitor and recommended to have outpatient discussion for PFO closure. Patient continues to smoke cigarettes, less than half a pack a day. He is on aspirin and atorvastatin daily Today we reviewed this patient after the encounter with stroke neurology. Based on the notes and the discussion with the patient she suggested that the stroke was most likely caused by atherosclerosis and unlikely to cardio embolic events. Patient's work-up as summarized below: EKG: NSR TTE: as above ADE: as above Venous US: Hypercoagulation work : 30 day Heart monitor: No evidence of atrial fibrillation US carotid/CTA neck: Brain MRI: 1. Iwmzt-cs-snqdkcof infarction in the right basal ganglia and sparks radiata measuring 1.4 cm. No mass effect or hemorrhage. 2. Chronic lacunar infarction centrally in the taisha measures [address] of the head: Suggestion of subacute infarct of the right basal ganglia. No significant mass effect. No acute intracranial hemorrhage Stroke Neurology: #Multiple lacunar infarcts. #PFO - Based on MRI reports (images not available, reports are) the etiology of these infarcts is thought to be small vessel disease (livelong smoker, h/o alcohol use disorder, LDL 115, HTN). Cardioemoblic or paradoxical embolism is very unlikely., although still possible. - Will submit a request to obtain MRI films. Rt BG infarct is reported to be 1.4cm in size, which is still considered a lacunar infarct (<1.5cm) but will still review imaging for confirmation. - Continue ASA 81mg and Atorva 40mg. - Extensively discussed secondary stroke prevention, most importantly smoking. Further discussion as detailed below. Physical Exam: virtual visit Assessment/Plan: This is a 54-year-old male smoker with hypertension with history of lacunar stroke and found to have moderate-sized PFO. The patient's stroke seen on MRI imaging indicates small vessel disease due to hypertension and not paradoxical, cardioembolic events. No indication for PFO closure. Most importantly the patient needs to quit smoking and I did spend 5 minutes discussing cigarette smoking cessation with the patient extensively. He is certainly aware of the clinical implications of his continued cigarette smoking. He is to continue aspirin and atorvastatin. Urbano Carpenter MD [employer], Interventional Cardiology Fellowship Program, [facility] Office documented in this encounter [facility] Work Phone: 11-10-2024 History of Present illness Narrative Subjective HPI Aquiles Rodriguez is a 54-year-old male smoker with hypertension and mild dyslipidemia, seen for lacunar infarct and consideration of PFO closure. Interval History: Pt stated that he has been feeling well. Denied any stroke-like sxs since last event in 01/2024. 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 Smokes less than a pack a day since age of 15. Quit drinking few years ago, stated that he used to drink extensively. Has been taking ASA 81mg and Atorva 40mg. Patient developed sudden onset of left-sided weakness and unsteady gait on February 06, 2024. He went to [place] [facility] and described his left-sided weakness and advised to come to the hospital. CT of the head showed no bleeding. Brain MRI (could not see the film, can only see the report) showed subacute right basal ganglia ischemic infarct and remote lacunar infarct in taisha. His cardiac echo showed PFO but he does not have any thromboembolic infarcts. His cerebrovascular risk factors include age, gender, hypertension, hyperlipidemia, and smoking history. Stroke work-up: -Brain MRI (could not see the film, can only see the report) showed subacute 1.4cm right basal ganglia ischemic infarct and remote lacunar infarct in taisha. -LDL 115 (2023) -A1C 5.6 (2023) -Toxicology screen was negative (2023) -Cardiac echo showed PFO (2023) -30 day Heart monitor: No evidence of atrial fibrillation (2023) -ROPE score 3 (0% chance that stroke is due to PFO. 20% risk of 2 year recurrence of stroke/TIA.) There is no problem list on file for this patient. No past medical history on file. No past surgical history on file. Social History Tobacco Use Smoking status: Every Day Types: Cigarettes Smokeless tobacco: Never Substance Use Topics Alcohol use: Not Currently family history is not on file. Current Outpatient Medications: acetaminophen (Tylenol) 325 mg tablet, Take 2 tablets (650 mg) by mouth every 6 hours if needed., Disp: , Rfl: amLODIPine (Norvasc) 5 mg tablet, Take 1 tablet (5 mg) by mouth once daily., Disp: , Rfl: aspirin 81 mg EC tablet, Take 1 tablet (81 mg) by mouth once daily., Disp: , Rfl: atorvastatin (Lipitor) 40 mg tablet, Take 1 tablet (40 mg) by mouth once daily., Disp: , Rfl: gabapentin (Neurontin) 300 mg capsule, Take 1 capsule (300 mg) by mouth 3 times a day., Disp: , Rfl: hydrOXYzine pamoate (Vistaril) 50 mg capsule, Take 1 capsule (50 mg) by mouth 3 times a day as needed., Disp: , Rfl: melatonin 3 mg tablet, Take 2 tablets (6 mg) by mouth once daily., Disp: , Rfl: mirtazapine (Remeron) 30 mg tablet, Take 1 tablet (30 mg) by mouth once daily., Disp: , Rfl: naltrexone (Depade) 50 mg tablet, Take 1 tablet (50 mg) by mouth once daily. Prn, Disp: , Rfl: No Known Allergies Objective Visit Vitals Smoking Status Every Day There is no height or weight on file to calculate BMI. Neurological Exam Physical Exam GENERAL APPEARANCE: No distress, alert, interactive and cooperative. CARDIOVASCULAR: Regular rate and rhythm. Radial pulses +2 and equal. No swelling, varicosities, edema, or tenderness to palpation. MENTAL STATE: Orientation was normal to time, place and person. Recent and remote memory was intact. Attention span and concentration were normal. Language testing was normal for comprehension, repetition, expression, and naming. General fund of knowledge was intact. CRANIAL NERVES: CN 2 Visual schmidt full to confrontation. CN 3, 4, 6 Pupils round, 4 mm in diameter, equally reactive to light. Lids symmetric; no ptosis. EOMs normal alignment, full range with normal saccades, pursuit and convergence. No nystagmus. CN 5 Facial sensation intact bilaterally. CN 7 Normal and symmetric facial strength. Nasolabial folds symmetric. CN 8 Hearing intact to conversation. CN 9/10 Palate elevates symmetrically. CN 11 Normal strength of shoulder shrug and neck turning. CN 12 Tongue midline, with normal bulk and strength; no fasciculations. MOTOR: Muscle bulk and tone were normal in both upper and lower extremities. No fasciculations, tremor or other abnormal movements were present. R L Deltoids 5 5 Biceps 5 5 Triceps 5 5 Wrist Flex 5 5 Wrist Ext 5 5 Hip Flex 5 5 Knee Flex 5 5 Knee Ext 5 5 Dorsiflex 5 5 Plantarflex 5 5 REFLEXES: R L BR: 2 2 Biceps: 2 2 Triceps: 2 2 Knee: 2 2 Ankle: 2 2 Babinski: toes downgoing to plantar stimulation. No clonus or other pathologic reflexes present. SENSORY: In both upper and lower extremities, sensation was intact to light touch COORDINATION: In both upper extremities, inlzky-cuhy-kioset was intact without dysmetria or overshoot. In both lower extremities, ztrj-dl-fpju was intact. GAIT: Station was stable with a normal base. Gait was stable with a normal arm swing and speed. No ataxia, shuffling, steppage or waddling was present. No circumduction was present. Tandem gait was intact. No Romberg sign was present. Extensive review of notes in EMR, labs, tests Hemoglobin A1C Date Value Ref Range Status 02/14/2024 5.6 4.2 - 5.6 % Final Estimated Average Glucose Date Value Ref Range Status 02/14/2024 114 74 - 114 mg/dL Final Creatinine Date Value Ref Range Status 02/27/2023 0.45 (L) 0.50 - 1.30 mg/dL Final Protime Date Value Ref Range Status 02/27/2023 12.8 9.8 - 12.8 sec Final Comment: Note new reference range as of 01/16/2023 at 10:00am. INR Date Value Ref Range Status 02/27/2023 1.1 0.9 - 1.1 Final No results found for this or any previous visit. Interpretation of neuroimaging No results found for this or any previous visit. Assessment/Plan #Multiple lacunar infarcts. #PFO - Based on MRI reports (images not available, reports are) the etiology of these infarcts is thought to be small vessel disease (livelong smoker, h/o alcohol use disorder, LDL 115, HTN). Cardioemoblic or paradoxical embolism is very unlikely., although still possible. - Will submit a request to obtain MRI films. Rt BG infarct is reported to be 1.4cm in size, which is still considered a lacunar infarct (<1.5cm) but will still review imaging for confirmation. - Continue ASA 81mg and Atorva 40mg. - Extensively discussed secondary stroke prevention, most importantly smoking. Further discussion as detailed below. Stroke Prevention: Discussed stroke prevention and current recommendations with the goal of managing vascular disease risk factors. Antithrombic Therapy/ Blood Thinners: Recommended to prevent a stroke or other vascular event Blood Pressure: Goal is normal 120/80 mmHg Cholesterol: TC < 200; Trig < 150; HDL > 45, LDL-cholesterol < 70mg/dl Blood sugar: Goal is normal fasting sugar between 70-100 mg/dl Smoking: Goal is not to smoke and avoid second-hand smoke Physical Activity: Goal is to improve physical fitness by exercising at a moderate level for at least 30 minutes most days of the week Obesity: Goal is to be at an ideal body weight. Generally your waistline measured around your midsection should be less than 40 inches Stroke warning signs: Know the warning signs of stroke and the importance of calling 911 to get EMS treatment quickly Pt seen and discussed with attending Dr. Davonte Santiago MD PGY-5 Vascular Neurology Fellow Cosigned by Tamica Busch MD at 11/10/2024 3:49 PM EDT Associated attestation - Tamica Busch MD - 11/10/2024 3:49 PM EDT I saw and evaluated the patient. I personally obtained the link and critical portions of the history and physical exam or was physically present for link and critical portions performed by the resident/fellow. I reviewed the resident/fellow's documentation and discussed the patient with the resident/fellow. I agree with the resident/fellow's medical decision making as documented in the note. Imaging not available for personal review, per reports infarcts in areas that suggest small vessel disease etiology, and within defined size parameters of lacunar infarct (<1.5cm). Given this information as well as patient's known vascular risk factors, etiology is unlikely PFO/cardioembolic, more likely due to small vessel etiology. Continue aspirin and statin, risk factor management discussed with patient. MRI images requested, will review once obtained and reach out to patient and Dr. Carpenter if they are concerning for alternative/cardiac etiology (unlikely given report). I personally spent 60 minutes today, exclusive of procedures, providing care for this patient, including preparation, face to face time, documentation and other services such as review of medical records, diagnostic result, patient education, counseling, coordination of care as specified in the encounter. documented in this encounter [facility] Work Phone: 11-10-2024 Instructions Alayna Santiago MD - 11/10/2024 2:30 PM EDT - Based on MRI reports (images not available, reports are) the etiology of these strokes is thought to be small vessel disease (Risk factors: livelong smoker, h/o alcohol use disorder, LDL 115, HTN). Cardioemoblic or paradoxical embolism is very unlikely., although still possible. - Continue Aspirin 81mg and Atorvastatin 40mg. - Extensively discussed secondary stroke prevention, most importantly smoking. Further discussion as detailed below. Stroke prevention: Eat a healthy diet with plenty of fresh fruits and vegetables. Avoid salt and fried foods. Lose weight and exercise on a regular basis. Do not smoke or use drugs. Be sure to take all medications. Call 911 for signs of stroke (numbness or weakness on one side, trouble seeing on one side, trouble speaking (either because your speech is slurred or you can't find the words), sudden double vision, spinning sensation or loss of coordination). To find a stroke support group: https://www.stroke.org/en/jerad [email or web address]-orclert-jfqqc-finder To learn about Virtual Stroke Educations sessions: contact Awa Francisco at: [email or web address] For any questions, concerns, or to schedule an appointment, please call . documented in this encounter [facility] Work Phone: 10-08-2024 History of Present illness Narrative Images from the original note were not included. I was asked by Dr. Richardson at [facility] to evaluate this patient in consultation for consideration of PFO closure. Aquiles Rodriguez is a 54-year-old male smoker with hypertension and mild dyslipidemia who was admitted to the hospital with left-sided weakness and gait instability in January 2024. CT of the head was unremarkable but brain MRI demonstrated a subacute right basal ganglier infarct. Patient underwent both a surface echo as well as a transesophageal echo which demonstrated a moderate-sized PFO with normal LV systolic function. He was seen in consultation by neurology at [facility]. He was recommended for DAPT for 21 days followed by aspirin for life and atorvastatin 40 mg for stroke risk reduction. He was counseled regarding cigarette smoking cessation. He was discharged home on a 30-day event monitor and recommended to have outpatient discussion for PFO closure. Patient continues to smoke cigarettes, less than half a pack a day. He is on aspirin daily Patient's work-up as summarized below: EKG: NSR TTE: as above ADE: as above Venous US: Hypercoagulation work : 30 day Heart monitor: No evidence of atrial fibrillation US carotid/CTA neck: Brain MRI: 1. [id number] infarction in the right basal ganglia and sparks radiata measuring 1.4 cm. No mass effect or hemorrhage. 2. Chronic lacunar infarction centrally in the taisha measures [address] of the head: Suggestion of subacute infarct of the right basal ganglia. No significant mass effect. No acute intracranial hemorrhage Given PFO noted on echo, and without other obvious etiology for his neurologic event, the patient is referred for consideration of PFO closure. ROS: Constitutional: not feeling tired, not feeling poorly, no fever and no chills. Eyes: no eyesight problems, no blurred vision, no diplopia, no eye pain, no purulent discharge from the eyes, eyes not red, no dryness of the eyes and no itching of the eyes. ENT: no nosebleeds, no hearing loss, no tinnitus, no earache, no sore throat, no hoarseness, no swollen glands in the neck and no nasal discharge. Cardiovascular: no intermittent leg claudication, no chest pain, no tightness or heavy pressure, no shortness of breath, no palpitations, no lower extremity edema, the heart rate was not slow, the heart rate was not fast and as noted in HPI. Respiratory: no chronic cough, not coughing up sputum, no wheezing that is consistent with asthma, no asthma, no orthopnea and no postural nocturnal dyspnea. Gastrointestinal: no change in bowel habits, no blood in stools, no diarrhea, no constipation, no nausea, no vomiting, no abdominal pain, no signs and symptoms of ulcer disease, no tamy colored stools and no intolerance to fatty foods. Genitourinary: no hematuria, no urinary frequency, no dysuria, no incontinence, no burning sensation during urination, no urinary hesitancy, no nocturia, no genital lesion, no testicular pain, urinary stream is not smaller and urinary stream does not start and stop. Musculoskeletal: no arthralgias, no myalgias, no joint swelling, no joint stiffness, no muscle weakness, no back pain, no limb pain, no limb swelling and no difficulty walking. Skin: no skin rashes, no change in skin color and pigmentation, no skin lesions and no skin lumps. Neurological: no seizures, no frequent falls, no headaches, no dizziness, no tingling, no fainting and no limb weakness. Psychiatric: no depression, not suicidal, no confusion, no memory lapses or loss, no anxiety, no personality change and no emotional problems. Endocrine: no goiter, no thyroid disorder, no diabetes mellitus, no excessive thirst, no dry skin, no cold intolerance, no heat intolerance, no erectile dysfunction, no increased urinary frequency, no proptosis and no deepening of the voice. Hematologic/Lymphatic: no bleeding issues. All other systems have been reviewed and are negative for complaint. Physical Exam: There were no vitals taken for this visit. Constitutional: alert and in no acute distress. Eyes: no erythema, swelling or discharge from the eye . Ears, Nose, Mouth, and Throat: external inspection of ears and nose is normal , lips, teeth, and gums are normal with good dentition and oropharynx normal with no erythema, edema, exudate or lesions . Neck: neck is supple, symmetric, trachea midline, no masses and no thyromegaly . Pulmonary: no increased work of breathing or signs of respiratory distress , lungs clear to auscultation. , normal percussion of chest and chest palpation normal . Cardiovascular: RRR, no murmur, no leg edema, non-displaced PMI, no S3 or S4 Abdomen: abdomen non-tender, no masses and no hepatomegaly . Skin: no skin lesions Neurologic: non-focal neurologic examination. Psychiatric judgment and insight is normal , oriented to person, place and time , normal mood and affect . Labs: No results found for this or any previous visit. Meds: No current outpatient medications Assessment/Plan: This is a 54-year-old male smoker with hypertension with history of lacunar stroke and found to have moderate-sized PFO. I discussed with the patient pathophysiology and management of PFO related stroke as well as discussed with him etiologies for his lacunar strokes. As I discussed with the patient the patient's stroke seen on MRI imaging would suggest small vessel disease due to hypertension and not paradoxical, cardioembolic events. Nonetheless I think it reasonable for the patient to be seen by stroke neurology for their input in this regard as the patient does have a moderate-sized PFO. Most importantly the patient needs to quit smoking and I did spend 5 minutes discussing cigarette smoking cessation with the patient. He is certainly aware of the clinical implications of his continued cigarette smoking. He is to continue aspirin. Finally the patient's blood pressure is elevated today. However the patient tells me that he rushed over to this clinic appointment and that his blood pressure previously has been better controlled. This will require continued follow-up. Thank you, Dr. Richardson, for this consultation and for allowing me to participate in the care of this patient. Urbano Carpenter MD [employer], Interventional Cardiology Fellowship Program, [facility] Office documented in this encounter [facility] Work Phone: 08-06-2024 Evaluation note Diagnosis Onset Date Resolution CVA (cerebral vascular accident) acute August 06, 2024 1:07pm PFO (patent foramen ovale) acute August 06 1:07pm HTN (hypertension) chronic Januar y 2024 1:07pm [facility] Work Phone: 1(796) 984-285507-31-2024 NoteNeurology outpatient progress note [facility] [place] [phone] (phone)/[phone] (fax) Patient: Angela Randle Date of : 1970 Primary Care Provider: Vishnu Burciaga MD Assessment/Plan: Patient developed sudden onset of left-sided weakness and unsteady gait on February 06, 2024. He went to the [facility] and described his left-sided weakness and advised to come to the hospital. CT of the head showed no bleeding. Brain MRI showed subacute right basal ganglia ischemic infarct. His cardiac echo showed PFO but he does not have any thromboembolic infarcts patterns. Etiology of ischemic stroke probably from small vessel disease affecting the lenticulostriate arteries with his history of hypertension, hyperlipidemia, and smoking. His cerebrovascular risk factors include age, gender, hypertension, hyperlipidemia, and smoking history. Labs/Imaging/Ancillary test: CBC was unremarkable. Serum sodium is 128. Potassium was normal. BUN and creatinine were unremarkable. Toxicology screen was negative.Hemoglobin A1c is 5.6. LDL is 115. Cardiac echo showed PFO. Brain MRI: 1. Wqabf-ga-sfgtjikw infarction in the right basal ganglia and sparks radiata measuring 1.4 cm. No mass effect or hemorrhage. 2. Chronic lacunar infarction centrally in the taisha measures 7 mm. CTA NECK: 1. There is no acute regional vascular abnormality identified within the great vessels of the neck to include a flow-limiting (greater than 50%) stenosis or occlusion. No definite dissection or pseudoaneurysm. CTA HEAD: 1. There are evolving subacute ischemic changes within the right lentiform nucleus and with extension into the right sparks radiata corresponding to region of restricted diffusion identified on the brain MRI obtained on 02/14/2024 at 7:34 a.m.. In addition, a remote pontine infarct is present. These findings are superimposed on mild senescent change and cerebral volume loss and a mild background of nonspecific white matter disease which is most commonly associated with the sequelae of chronic microvascular ischemia. 2. Evaluation of the intracranial circulation demonstrates mild segmental fusiform dilatation of the right carotid terminus. In addition, there is a moderate severity stenosis identified in an anterior temporal branch of the right MCA in the M2 segment, age indeterminate. No branch vessel occlusion. No vascular malformation. No additional aneurysm. 3. Evaluation of the posterior circulation demonstrates patent appearance of the vertebral and the cerebellar arteries. The basilar artery is patent in appearance. The bilateral posterior cerebral arteries appear to be patent in appearance with no evidence of a flow-limiting stenosis or branch vessel occlusion. No definite aneurysm or vascular malformation. CT of the head: Suggestion of subacute infarct of the right basal ganglia. No significant mass effect. No acute intracranial hemorrhage. Impression: Subacute right basal ganglia ischemic infarct January 2014 Old pontine infarct Hyponatremia Hypertension Hyperlipidemia Hiatal hernia Anxiety and depression Tobacco abuse Suggestion: Finish total of 21 days of Plavix 75 mg daily. Continue aspirin 81 mg daily and atorvastatin 40 mg daily for stroke prevention. Monitor for any bleeding complications. Continue blood pressure medications and monitor blood pressure regularly with a goal blood pressure of less than 140/90. Regular exercise and low-cholesterol diet. Monitor for any symptoms of sleep apnea. Discontinue tobacco use. Follow-up with cardiology. Will see you for follow-up visit as needed. Diagnostic impression, plans, and suggestions were explained and discussed. Records from the referring physician were reviewed. Clinical imaging study/ labs/medical tests were ordered/reviewed. Indications, risk, complications, side effects and alternatives of medications/therapeutics were explained and discussed. Please monitor closely for any untoward side effects or complications of medications. Questions and concerns were addressed. Please call or contact us for any problems. This note was created in part using a speech-recognition software. Time Code: 35 minutes 1. Preparation for patient's visit (reviewing previous chart, current medical records, previous history, exam, tests, procedures, and medications) 2. Face to face encounter obtaining history from the patient/family/caregivers; performing evaluation and examination; discussing tests and procedure results, medications and therapeutic options, side effects and complications of medications and procedures. Ordering medications, tests, or procedures; referring and communicating with other physicians, healthcare professionals; counseling and education of the patient/family/caregiver; independently inter (more content not included)...[facility] [facility] Angela Randle Admitted: 02/13/2024 Discharge Date: 02/15/24 PCP Handoff Recommended Outpatient Testing 30 day ALANA, PFO closure consideration Follow-up with [facility] PCP and neurology[facility]cardiology at the [facility] Results Pending At Discharge None Clinical Summary New subacute stroke Left-sided weakness x [address] head shows subacute infarct right basal ganglia MRI brain shows acute to subacute infarction right basal ganglia and sparks radiata measuring 1.4 cm, chronic lacunar infarction centrally in the taisha 7 mm A1c normal, lipids largely normal Neurology consulted, appreciate recs; DAPT for 21 days followed by lifelong ASA and Lipitor for stroke prevention Echo completed and revealed a PFO with right to left shunting, will consult cardiology as mentioned below TEXTILE CONSERVATOR/OT evaluated, no home-going needs PT recs are scaling for [facility] Patient gets his care through [facility] and would like to follow up with them and neurology there; appreciate CM, she assisted with ensuring he has appropriate follow-up Patent foramen ovale Echo completed per stroke protocol showed PFO with right to left shunt The stroke was likely due to hypertension but unsure if we can rule out embolic source in context of PFO Will need 30 day event monitor on discharge, patient would like to go through [facility] for this and to discuss PFO closure CM consulted for assistance with getting appropriate follow-up with [facility] Primary hypertension Patient has noted elevated BP at home prior to CVA Not currently on any medications Will start amlodipine 5 mg, continue on discharge Neuropathy May be related to prior alcohol use (sober for 8 months) Continue home med gabapentin Hyponatremia Sodium 130 on arrival, but reportedly chronic per patient as [facility] Gave IVF but not much improvement, Na staying around 129-130 Recommended outpatient follow-up with [facility] History of alcohol use disorder Has been sober for 8+ months Smoker Smoking cessation counseling given Discharge Medications Discharge Medications New Medications Details amLODIPine 5 MG tablet Commonly known as: NORVASC Take 1 (one) tablet (5 mg total) by mouth daily . Quantity: 30 tablet aspirin 81 MG EC tablet Take 1 (one) tablet (81 mg total) by mouth daily . Quantity: 30 tablet atorvastatin 40 MG tablet Commonly known as: LIPITOR Take 1 (one) tablet (40 mg total) by mouth nightly . Quantity: 30 tablet Medications To Continue Details acetaminophen 325 MG tablet Commonly known as: TYLENOL Take 2 (two) tablets (650 mg total) by mouth every 6 (six) hours as needed for pain max acetaminophen of 4 gm day including all meds* . diclofenac sodium 1% 1 % Gel Commonly known as: VOLTAREN Apply topically . ENSURE PLUS ORAL Take 1 Can by mouth 2 (two) times a day . famotidine 20 MG tablet Commonly known as: PEPCID Take 1 (one) tablet (20 mg total) by mouth 2 (two) times a day . folic acid 1 MG tablet Commonly known as: FOLVITE Take 1 (one) tablet (1,000 mcg total) by mouth daily . * gabapentin 300 MG capsule Commonly known as: NEURONTIN Take 2 (two) capsules (600 mg total) by mouth at bedtime . * gabapentin 300 MG capsule Commonly known as: NEURONTIN Take 1 (one) capsule (300 mg total) by mouth every morning . * gabapentin 300 MG capsule Commonly known as: NEURONTIN Take 1 (one) capsule (300 mg total) by mouth daily in the afternoon . hydrOXYzine 50 MG capsule Commonly known as: VISTARIL Take 1 (one) capsule (50 mg total) by mouth 3 (three) times a day as needed (anxiousness) . melatonin 3 mg Tab Take 2 (two) tablets (6 mg total) by mouth nightly . meloxicam 15 MG tablet Commonly known as: MOBIC Take 1 (one) tablet (15 mg total) by mouth daily as needed for pain With food . mirtazapine 30 MG tablet Commonly known as: REMERON Take 1 (one) tablet (30 mg total) by mouth nightly . MULTIVITAMIN ORAL Take 1 tablet by mouth daily . naltrexone 50 mg tablet Commonly known as: DEPADE, REVIA Take 2 (two) tablets (100 mg total) by mouth every morning . * There are duplicate medications prescribed to the patient Stopped Medications thiamine 100 MG tablet Physician(s) Follow Up: Vishnu Burciaga MD [id number] [place] [phone] Schedule an appointment as soon as possible for a visit in 1 week(s) for a hospital follow-up with the [facility] - you will need to see a retail and promotions coordinator to discuss closing the hole in the heart, as well as to follow-up on stroke and any therapies that are needed for you Kourtney Little, [employer]KE [employer] WORK[employer] [address] [place] [phone] Follow up in 3 week(s) Condition at Discharge: Stable Disposition: Home with [facility] follow-up secured to ensure patient gets [facility] and follow-up with [facility] neurology/cardiology I reviewed disch (more content not included)...[facility]07-18-2024 Note [facility]ESS NOTE Assessment and Plan Angela Randle is a 53 y.o. male patient of Vishnu Burciaga MD with prior history of alcohol use disorder, presented to [facility] on 02/13/2024 with subacute stroke. New subacute stroke Left-sided weakness x [address] head shows subacute infarct right basal ganglia MRI brain shows acute to subacute infarction right basal ganglia and sparks radiata measuring 1.4 cm, chronic lacunar infarction centrally in the taisha 7 mm A1c normal, lipids largely normal Neurology consult pending, appreciate recs Echo completed and revealed a PFO with right to left shunting, will consult cardiology as mentioned below TEXTILE CONSERVATOR evaluated, no home-going needs PT recs are scaling for [facility], OT recs pending Neurochecks Aspirin, statin Patent foramen ovale Echo completed per stroke protocol showed PFO with right to left shunt The stroke was likely due to hypertension but unsure if we can rule out embolic source in context of PFO Cardiology consulted, appreciate recs; would want to know if patient still needs anticoagulation or if 30-day event monitor would be sufficient CM consulted for assistance with getting appropriate follow-up with [facility] Primary hypertension Patient has noted elevated BP at home prior to CVA Not currently on any medications Will start amlodipine 5 mg Neuropathy May be related to prior alcohol use (sober for 8 months) Continue home med gabapentin Hyponatremia Sodium 130 on arrival Was given IV fluids in the ED Monitor BMP, consider nephro if needed History of alcohol use disorder Has been sober for 8+ months Smoker Smoking cessation counseling given Resolved acute medical issues Discharge Planning Medically Stable for Discharge Date: Likely 02/14 Patient requires continued hospitalization due to: Stroke pathway, neuro consult pending Discharge Location: Likely home with [facility] Quality Measures DVT Prophylaxis: lovenox Alvarado Catheter: absent Code Status full Primary Contact Information Subjective Patient seen and examined at bedside. He states he is feeling well currently, endorses some mild continued dysarthria and left foot drop, but states he has been walking around without issue. Awaiting therapies today. Patient does state that symptoms began a week ago. He usually follows with the [facility] and wants to make sure that his records are sent over there. Objective BP (!) 140/94 Pulse 71 Temp 98.2 degrees F (36.8 degrees C) (Oral) Resp 17 Ht 6' 3 Wt 77.1 kg (170 lb) SpO2 97% BMI 21.25 kg/m Physical Examination General Appearance: alert; well appearing; in no acute distress HEENT: Head- normocephalic; Eyes- EOMI, sclera anicteric; Throat- mucous membranes moist Cardiovascular: regular rate and rhythm; normal S1, S2; no murmurs, rubs, clicks or gallops; peripheral edema absent Respiratory: lungs clear to auscultation; without wheezes, rales or rhonchi; on room air Abdomen: soft, non-tender, non-distended Neurological: oriented x 3; mild dysarthria, slightly reduced coordination and very mild weakness in left lower extremity and left upper extremity Musculoskeletal: no significant deformity or tenderness to palpation Skin: normal coloration Psych: normal mood and affect AUTHENTICATED BY GIAN FONTANEZ, ON 02/14/2024 14:28:29[facility]07-17-2024 NoteHMS HISTORY AND PHYSICAL -- [facility] Patient Name: Angeal Randle : 1970 MR #: [id number] Admit Date: 02/13/2024 Physicians: Vishnu Burciaga MD (Family); Phuong Silva,* (Referring) Angela Randle is a 53 y.o. male patient of Vishnu Burciaga MD with prior history of alcohol use disorder, presented to [facility] on 02/13/2024 with subacute stroke. New subacute stroke Left-sided weakness x [address] head shows subacute infarct right basal ganglia Neurology consult MRI brain, echo ordered PT OT ST Neurochecks Aspirin, statin Neuropathy Continue home med gabapentin Hyponatremia Sodium 130 on arrival Was given IV fluids in the ED Will repeat labs tomorrow History of alcohol use disorder Has been sober for many months Smoker Smoking cessation counseling given Residence prior to admission: house or apartment Was patient transferred from outlying hospital or ED no Quality Measures DVT Prophylaxis: heparin subcutaneous Alvarado Catheter: absent Medication Reconciliation: Unverified Admitted with these risk variables:None. Please see assessment and plan for further details. Estimated Date of Discharge greater than 2 midnights Code Status full code Chief Complaint left-sided weakness History of Present Illness 53-year-old male history of alcohol use disorder, presenting the emergency department complaints of left upper and lower extremity weakness for about 1 week. Patient states symptoms started about a week ago with left arm and hand weakness with difficulty gripping things. Symptoms have improved a bit over the last couple days but weakness still persist. Denies any headache vision changes speech changes, facial droop. No chest pain shortness of breath fevers chills. No other complaints at this time. Imaging head CT revealed subacute infarct of the right basal ganglia. Past Medical History History reviewed. No pertinent past medical history. Past Surgical History History reviewed. No pertinent surgical history. Family History History reviewed. No pertinent family history. Social History Social History Tobacco Use Smoking Status Every Day Current packs/day: 1.00 Types: Cigarettes Smokeless Tobacco Never Social History Substance and Sexual Activity Alcohol Use Not Currently Comment: quit drinking 8 months ago Social History Substance and Sexual Activity Drug Use Never Allergy Information I have reviewed the patient's allergies. Patient has no known allergies. Home Medications Home medications were reviewed. Review Of Systems All relevant systems have been reviewed and are negative except as noted in HPI or below Physical Examination BP (!) 168/110 Pulse (!) 59 Temp 98.2 degrees F (36.8 degrees C) (Oral) Resp 12 Ht 6' 3 Wt 77.1 kg (170 lb) SpO2 100% BMI 21.25 kg/m General Appearance: alert; chronically ill appearing; in no acute distress HEENT: Head- normocephalic; Eyes- EOMI, sclera anicteric; Throat- mucous membranes moist Cardiovascular: regular rate and rhythm; normal S1, S2; no murmurs, rubs, clicks or gallops; peripheral edema absent Respiratory: lungs clear to auscultation; without wheezes, rales or rhonchi; on room air Abdomen: soft, non-tender, non-distended Neurological: oriented x 2; normal speech; left-sided weakness noted Musculoskeletal: no significant deformity or tenderness to palpation Skin: normal coloration Psych: normal mood and affect Labs, imaging reviewed Chest x-ray perseveres negative for pneumonia AUTHENTICATED BY EZE ANTHONY ON 02/13/2024 13:01:[address] [place] [address] 08-31-2023 [facility]02-02-2024 Procedure [facility] 08[facility]* Diagnosis Onset Date Resolution Status GERD (gastroesophageal reflux disease) acute Positive colorectal cancer s creening using Cologuard test acute [facility] Work Phone: Evaluation note* Diagnosis PFO (patent foramen ovale) (HHS-HCC)- Primary Ostium secundum type atrial septal defect HTN (hypertension) Unspecified essential hypertension Smoker Tobacco use disorder documented in this encounter [facility] Work Phone: Evaluation note* Diagnosis History of stroke- Primary Transient ischemic attack (TIA), and cerebral infarction without residual deficits PFO (patent foramen ovale) (HHS-HCC) Ostium secundum type atrial septal defect documented in this encounter [facility] Work Phone: Evaluation note* Diagnosis PFO (patent foramen ovale) (HHS-HCC)- Primary Ostium secundum type atrial septal defect documented in this encounter [facility] Work Phone: History and physical note Author Israel Proctor [facility] August 31, 2023 8:07am Note Date/Time August 31, 2023 8 :08am [facility] Medical Records Department [address] [place] [id number] History & Physical Exam 08/31/23 0807 MR#: [id number] Acct: [id number] Name: ANGELA RANDLE Rep #:[id number] : 1970 52 From: Israel hill MD PCP: VISHNU BURCIAGA Status:[facility] Location: [place] [address] History and Physical Date of Admission: 08/31/[address] Israel Proctor MD on 08/22/23 at 1047 Intake Chief Complaint: c-scope Allergies No Known Allergies Allergy (Unverified 08/16/23 10:08) Medications acetaminophen 325 mg capsule (Tylenol) 325 mg PO Q6H PRN 04/09/18 [History Confirmed 08/16/23] acetaminophen 325 mg tablet 325 mg PO Q4-6H 08/16/23 [History Confirmed 08/16/23] diclofenac sodium 1 % topical gel topical 08/16/23 [History Confirmed 08/16/23] docusate sodium 100 mg capsule mg PO PRN 08/16/23 [History Confirmed 08/16/23] famotidine 20 mg tablet 20 mg PO DAILY 08/16/23 [History Confirmed 08/16/23] folic acid 1 mg tablet 1 mg PO DAILY 08/16/23 [History Confirmed 08/16/23] food supplemt, lactose-reduced (Ensure MAX Protein oral liquid) ml PO 08/16/23 [History Confirmed 08/16/23] gabapentin 300 mg capsule 300 mg PO TID 08/16/23 [History Confirmed 08/16/23] hydroxyzine pamoate 50 mg capsule 50 mg PO BID 08/16/23 [History Confirmed 08/16/23] mirtazapine 30 mg tablet 30 mg PO QHS 08/16/23 [History Confirmed 08/16/23] naltrexone 50 mg tablet 100 mg PO DAILY 08/16/23 [History Confirmed 08/16/23] thiamine HCl (vitamin B1) 100 mg tablet 100 mg PO DAILY 08/16/23 [History Confirmed 08/16/23] Assessment and Plan Assessment and Plan (1) Positive colorectal cancer screening using Cologuard test: Status: Acute Plan: Patient has positive Cologuard and requires colonoscopy. I explained endoscopy in detail to the patient. I explained the risks including but not limited to stroke or heart attack with anesthesia, perforation of the GI tract, bleeding, infection. I explained that any of these could necessitate further emergency surgery. The patient understands and all questions were answered sufficiently. The patient wishes to proceed with procedure. (2) GERD (gastroesophageal reflux disease): Status: Acute Qualifiers: Esophagitis presence: esophagitis presence not specified Qualified Code(s): K21.9 - Gastro-esophageal reflux disease without esophagitis Plan: Patient also has longstanding GERD and requires EGD for evaluation. Israel Proctor MD Pager: [facility] [address] [place] [address], [address] [place] [address] Office: Orders: Orders Colonoscopy 08/31/23 08/22/23 1047 <Electronically signed by Israel Proctor MD> Date Israel Proctor MD cc: ~* Signed Intake Vital Signs 08/16/2409:07 Height 6 ft 3 in Weight: 173 lb BMI 21.6 BP 149/91 H Blood Pressure Location Rt brachial Position Sitting Respiration 16 Intake Visit Reasons: COLONOSCOPY Chief Complaint: c-scope Plywood Matcher Required: No Is patient in pain?: No Allergies No Known Allergies Allergy (Unverified 08/16/23 10:08) Medications acetaminophen 325 mg capsule (Tylenol) 325 mg PO Q6H PRN 04/09/18 [History Confirmed 08/16/23] acetaminophen 325 mg tablet 325 mg PO Q4-6H 08/16/23 [History Confirmed 08/16/23] diclofenac sodium 1 % topical gel topical 08/16/23 [History Confirmed 08/16/23] docusate sodium 100 mg capsule mg PO PRN 08/16/23 [History Confirmed 08/16/23] famotidine 20 mg tablet 20 mg PO DAILY 08/16/23 [History Confirmed 08/16/23] folic acid 1 mg tablet 1 mg PO DAILY 08/16/23 [History Confirmed 08/16/23] food supplemt, lactose-reduced (Ensure MAX Protein oral liquid) ml PO 08/16/23 [History Confirmed 08/16/23] gabapentin 300 mg capsule 300 mg PO TID 08/16/23 [History Confirmed 08/16/23] hydroxyzine pamoate 50 mg capsule 50 mg PO BID 08/16/23 [History Confirmed 08/16/23] mirtazapine 30 mg tablet 30 mg PO QHS 08/16/23 [History Confirmed 08/16/23] naltrexone 50 mg tablet 100 mg PO DAILY 08/16/23 [History Confirmed 08/16/23] thiamine HCl (vitamin B1) 100 mg tablet 100 mg PO DAILY 08/16/23 [History Confirmed 08/16/23] PFSH Medical History Alcohol abuse Arthritis Depression Hemorrhoids HTN (hypertension) Neuropathic pain Positive colorectal cancer screening using Cologuard test Thrombocytopenia Tobacco use Surgical History (Updated 08/16/23 @ 10:07 by Jane Briones) History of vocal cord polypectomy Social History (Updated 08/16/23 @ 10:07 by Jane Briones) Smoking Status: Current every day smoker alcohol intake: current alcohol intake frequency: 0-2 drinks per day Alcohol type: beer details: recovering alcoholic HPI HPI HPI: Patient is a 52-year-old male here for positive Cologuard. He denies abdominal pain or blood in the stool. He has no family history of colon cancer. ROS General General: No weight change, appetite, fatigue, colon cancer, breast cancer or weakness HEENT HEENT: No difficulty swallowing, eye injury, eye surgery, swollen glands or hoarseness Endo Endocrine: No thyroid disease, diabetes mellitus, thyroid cancer, Hair loss, heat intolerance or cold intolerance Skin Skin: No rash or changing moles Breast Breast: No left breast lump, right breast lump, nipple discharge, breast pain, abnormal mammogram, abnormal US or breast enlargement Musc Musculoskeletal: Yes arthritis; No back problems, rheumatoid arthritis, gout or joint pain Cardio Cardiovascular: No murmur, pacemaker, heart disease, atrial fibrillation, high blood pressure, heart attack, heart stent, palpitations, shortness of breat withexertion or chest pain Psych Psychiatric: Yes depression and anxiety; No hearing voices Resp Respiratory: No shortness of breath, No sleep apnea, No cough, No COPD, No asthma, No emphysema and No wheezing Gastro Gastrointestinal: No abdominal pain, No nausea or vomiting, No diarrhea, No constipation, No blood in stool, No acid reflux, Yes hemorrhoids, No ulcers, No gallbladder problem and No black,tarry stools Mauricio Hematologic: No blood thinners, No blood disorders, No bleeding, No anemia and No blood clots Neuro Neurologic: No system reviewed and no additional complaints, except as documented, No as per HPI, No abnormal gait, No abnormal hearing, No abnormal movements, No abnormal speech, No behavioral changes, No burning sensations, No confusion, No convulsions, No disequilibrium, No dizziness, No localized weakness, No frequent falls, No headache(s), No lack of coordination, No loss ofvision, No memory loss, No numbness, No other visual disturbances, No radicular pain, No restless legs, No sensory deficit, No syncope, No tingling, No tremor(s), No weakness and No other Exam Const General: cooperative Orientation: alert and oriented x3 HENMT Head: normal to inspection Neck Neck: normal visual inspection and full ROM Chest Chest palpation & inspection: normal inspection of the chest Resp Effort & Inspection: normal respiratory effort Auscultation: clear to auscultation bilaterally Cardio Rate: regular rate Rhythm: regular rhythm GI Inspection: non-distended Palpation: soft and nontender Skin General: no rashes or lesions noted Neuro General: patient alert and patient oriented x3 Extrem General: full ROM Psych Appearance: grossly normal Mental Status: mental status grossly normal Assessment and Plan Assessment and Plan (1) Positive colorectal cancer screening using Cologuard test: Status: Acute Orders: Orders Colonoscopy Today Plan Patient had positive Cologuard and requires colonoscopy. I explained endoscopy in detail to the patient. I explained the risks including but not limited to stroke or heart attack with anesthesia, perforation of the GI tract, bleeding, infection. I explained that any of these could necessitate further emergency surgery. The patient understands and all questions were answered sufficiently. The patient wishes to proceed with procedure. Israel Proctor MD Pager: [facility] [address] [place] [address], [address] [place] [address] Office: Coding Level of Care Code Off vis,new,level 3 Diagnoses Positive colorectal cancer screening using Cologuard test R19.5 I have examined the patient and the H&P has been reviewed. There are no clinicalchanges since date of exam. 08/31/23 0807 <Electronically signed by Israel Proctor MD> Cosigner Signature (if applicable): CC: VISHNU BURCIAGA; Dr. Israel Proctor MD~ Signed [facility] Work Phone: Reason for referral (narrative)No reason for referral [facility] Work Phone: Summary Purpose Family History No Family History Records Found Relationship Condition Age at Onset Recorded Date/T eusebia father Coronary artery disease Unknown Cerebrovascular accident (CVA) Unknown Diabetes mellitus Unknown grandmother Myocardial infarction Unknown Malignant neoplasm Unknown grandfather Myocardial infarction Unknown brother Hypertension Unknown sister Diabetes mellitus Unknown Advance Directives No Advanced Directives Records Found Advance Directive Response Recorded Date/ Time Living Will No August 29 8:50am Power of User Experience Analyst No August 29, 2023 8:50am Chief Complaint and Reason for Visit Chief Complaint COLONOSCOPY Reason for Visit GERD (gastroesophage al reflux disease) Positive colorectal cancer screening using Cologuard test Chief Complaint Admit Date PFO ([place]) August 06, 2024 1: 07pm CHRONIC TOTAL OCCLUSION OF ART OF EX Jovan flores 2024 1:40pm symptoms and signs involving the circula tory and r September 24, 2024 8:38am Reason for Visit Admit Date CVA (cerebral vascular accident) August 06, 2024 1:07pm PFO (patent foramen ovale) August 06, 2024 1:07pm HTN (hypertension) August 06, 2024 1: 07pm Additional Source Comments (unrecognized sect ion and content) No Status Records FoundNo Status Records FoundNo Status Records FoundNo Status Records FoundNo Status Records FoundNo Status Records FoundNo Status Records Found INFORMATION SOURCE (unrecogn ized section and content) DATE CREATED AUTHOR 07/29/2020 [facility] DATE CREATED AUTHOR AUTHOR'S ORGANIZ ATION 02/28/2023 [facility] DATE CREATED AUTHOR AUTHOR'S ORGANIZ ATION 02/29/2024 [facility] DATE CREATED AUTHOR AUTHOR'S ORGANIZ ATION 03/03/2024 [facility] DATE CREATED AUTHOR AUTHOR'S ORGANIZ ATION 11/17/2024 [facility] DATE CREATED AUTHOR AUTHOR'S ORGANIZ ATION 12/03/2024 [facility] DATE CREATED AUTHOR AUTHOR'S ORGANIZ ATION 03/02/2025 [facility] Care Teams (unrecognized sec tion and content) Team Status: Active Member Role Status Dates VISHNU BURCIAGA Primary Care Provider Active Team Status: Inactive Member Role Status Dates Dr. Israel Proctor MD Attending Provider Active Team Status: Active Member Role Status Dates Dr. Israel Proctor MD Attending Provider, Other Provider Active PROSPER MARES Primary Care Provider, Referring Prov ider Active Team Status: Inactive Member Role Status Dates Dr. Israel Proctor MD Attending Provider Active PROSPER MARES Primary Care Provider, Referring Prov ider Active Welding Specialist Relationship Specialty Start Date End Date Generic Provider, [place] [address] PCP - General [employer] 10/05/24 Team Status: Active Member Role Status Dates [facility] Primary Care Provider Active Team Status: Inactive Member Role Status Dates [facility] Primary Care Provider Active Start: August 06, 2024 End: August 06, 2024 [facility] Referring Provider Active Start: 2024 End: August 06, 2024 Dr. Aftab Cabrales MD Attending Provider Active S tart: August 06, 2024 End: August 06, 2024 Team Status: Inactive Member Role Status Dates [facility] Primary Care Provider Active Start: August 22, 2024 End: August 22, 2024 Dr. Aftba Cabrales MD Attending Provider Active S tart: August 22, 2024 End: August 22, 2024 Dr. Aftab Cabrales MD Referring Provider Active S tart: August 22, 2024 End: August 22, 2024 Team Status: Active Member Role Status Dates [facility] Primary Care Provider Active Start: August 22, 2024 Dr. Erick Logan MD Attending Provider Active S tart: August 22, 2024 Dr. Aftab Cabrales MD Referring Provider Active S tart: August 22, 2024 Team Status: Inactive Member Role Status Dates [facility] Primary Care Provider Active Start: September 24, 2024 End: September 24, 2024 Dr. Aftab Cabrales MD Attending Provider Active S tart: September 24, 2024 End: September 24, 2024 Dr. Aftab Cabrales MD Referring Provider Active S tart: September 24, 2024 End: September 24, 2024 Team Status: Active Member Role Status Dates [facility] Primary Care Provider Active Start: September 24, 2024 Dr. Erick Logan MD Attending Provider Active S tart: September 24, 2024 Dr. Aftab Cabrales MD Referring Provider Active S tart: September 24, 2024 Welding Specialist Relationship Specialty Start Date End Date Generic Provider, No [place] [address] PCP - General [employer] 10/05/24 Welding Specialist Relationship Specialty Start Date End Date Generic Provider, No [place] [address] PCP - General [employer] 10/05/24 Welding Specialist Relationship Specialty Start Date End Date Generic Provider, No [place] [address] PCP - General [employer] 10/05/24 Reason for Visit (unrecogniz ed section and content) Reason Comments pfo Reason Comments Stroke Specialty Diagnoses / Procedures Referred By Contirina t Referred To Contact Neurology Diagnoses PFO (patent foramen ovale) ([facility]) [place] [address] [place] [address] Phone: tel: fax: [place] [id number] [facility] [address], [address] [address] Phone: tel: fax: Referral ID Status Reason Start Date Expiration Date Visits Requested Visits Authorized [id number] Pending Review Specialty Services Required 10/08/2024 10/08/2025 1 1 Goals (unrecognized section and content) Goals may be documented in a n alternate section FOR RECORDS PERTAINING TO PATIENTS WHO ARE [...] BE BASED ON THE PRIMARY CLINICAL RECORDS. [employer] [facility]. provides no warranty or guarantee of the accuracy or completeness of information in this document.
== END | disposition home or self-care (01) ==
LOC: CT 16:50
DX: Z12.2 Encounter for screening for malignant neoplasm of respiratory organs (principal); F17.210 Nicotine dependence, cigarettes, uncomplicated
CPT/HCPCS: 71271

== ENCOUNTER → 2025-04-22 | Outpatient (CLI) | payer OTHER, SELFPAY ==
--- NOTE | 2025-04-22 16:51 | STRESSREP ---
Stress Test Report Exercise stress test. 54-year-old man with a history of abnormal chest CT. Stress protocol: Resting EKG demonstrates normal sinus rhythm with a rate of 80 bpm resting blood pressure is 142/80 mmHg. The patient exercised according to the regular Jefferson protocol for a total duration of 3 minutes and 13 seconds attaining a maximum heart rate of 148 bpm which was 88% of maximum predicted heart rate; the maximum workload was 5.1 metabolic equivalents. At rest there were no ST or T wave changes noted to suggest ischemia and at peak exercise upsloping ST changes only were noted which did not meet the criteria for ischemia. No clinical angina was noted the test was terminated due to the target heart rate being achieved/fatigue. The peak blood pressure was 152/74 mmHg. Rate-pressure product was 21,400. Conclusion: Exercise stress test with no EKG criteria for ischemia at a low workload. The low workload may affect sensitivity for detection of ischemia.
== END | disposition home or self-care (01) ==
LOC: CVS 10:38
PROVIDERS: Referring Provider Nurse Practitioner Gerontology; Visit Provider Nurse Practitioner Gerontology
DX: I25.10 Atherosclerotic heart disease of native coronary artery without angina pectoris (principal)
CPT/HCPCS: 93017